=== PATIENT | female | born 1960 | race Caucasian/White ===

== ENCOUNTER 2019-10-13 17:16 | Emergency (ER) | payer OTHER ==
[2019-10-13] MEDS ORDERED: Nitrostat 0.4 MG (ED) SL ONE ×2 (17:23→17:34)
[2019-10-13] MEDS ORDERED: BABY ASPIRIN 81 MG CHEW PO ONE (17:23)
[2019-10-13 17:33] LABS: Absolute Neutrophil Ct (ANC) 6.78 (1.4-6.9); BASOPHIL % 0.3 % (0.0-0.4); Basophil (Absolute #) 0.03 (0-0.4); Eosinophil % 0.8 % (0.00-5.0); Eosinophil (Absolute #) 0.09 (0-0.5); Hematocrit 44.4 % (35-47); Hemoglobin 14.8 gm/dl (12.0-16.0); Lymphocyte (Absolute #) 2.99 (1.0-4.6); Lymphocytes % 27.8 % (24.0-44.0); Mean Cell Volume 89.2 fl (78-100); Mean Corpuscular Hemoglobin 29.7 pg (26-32); Mean Corpuscular Hgb Concent. 33.3 g/dl (32-36); Mean Platelet Volume 11.6 fl (7.5-11.0); Monocyte (Absolute #) 0.88 (0.0-1.3); Monocytes % 8.2 % (0.0-12.0); Neutrophil % 62.9 % (36.0-66.0); Platelet Count 268 K/mm3 (150-450); Red Blood Count 4.98 M/mm3 (4.1-5.4); Red Cell Distribution Width 15.1 % (11.5-14.0); White Blood Count 10.8 K/mm3 (4.0-10.5)
[2019-10-13] MEDS ORDERED: BABY ASPIRIN 81 MG CHEW ONE (17:33)
--- NOTE | 2019-10-13 17:44 | ERPHSYRPT ---
- History of Present Illness Source: patient Exam Limitations: no limitations Patient Subjective Stated Complaint: pt to ER with complaints of chest pain since last night 01/21. pt complains of SOB and nausea, lightheaded. pt states she has been having it intermittent over 1 year. Triage Nursing Assessment: pt A&Ox4. pt ambulatory. pt skin pwd. Physician History: Patient is here with chest pain. Left-sided. Radiating into her back and left upper neck. Patient states it has been going on intermittently for over 1 year. However, last night was the worst episode of chest pain. She describes it as a 10 out of 10 radiating into her back. She has no other falls or trauma. States that she has been unable to follow-up with anyone given her social situation. She states that her recently as did her mother. Therefore, she has not seen a diversity manager or followed up. Location: chest pain Quality: sharp Radiation: into back Severity: 10/10 (last night, now is only slightly uncomfortable. Duration: 1 year Timing: intermittent Modifying factors/associated signs and symptoms: none tried Allergies/Adverse Reactions: hydromorphone [From Dilaudid] Adverse Reaction (Mild, Verified 10/13/19 17:26) Vomiting Home Medications: Alprazolam 0.25 mg [xanAX 0.25 MG] 0.25 mg PO DAILY PRN 10/13/19 [History] Erythromycin Base [Erythromycin] 5 g DAILY 10/13/19 [History] Losartan/Hydrochlorothiazide [Losartan-Hctz 100-12.5 mg Tab] 1 tab PO DAILY 10/13/19 [History] PANTOPRAZOLE 40 mg Tablet [Protonix 40MG Tablet] 40 mg PO DAILY 10/13/19 [History] Hx Tetanus, Diphtheria Vaccination/Date Given: No Hx Influenza Vaccination/Date Given: No Hx Pneumococcal Vaccination/Date Given: No Immunizations Up to Date: Yes Travel Risk - International Travel Have you traveled outside of the country in past 3 weeks: No - Coronavirus Screening Are you exhibiting any of the following symptoms?: Yes Symptoms: Shortness of Breath Close contact with a COVID-19 positive Pt in past 14-21 Days: No - Review of Systems Constitutional: No Fever, No Chills Eyes: No Symptoms Ears, Nose, & Throat: No Symptoms Respiratory: Dyspnea, No Cough Cardiac: Chest Pain, No Edema, No Syncope Abdominal/Gastrointestinal: No Abdominal Pain, No Nausea, No Vomiting, No Diarr hea Genitourinary Symptoms: No Dysuria Musculoskeletal: No Back Pain, No Neck Pain Skin: No Rash Neurological: No Dizziness, No Focal Weakness, No Sensory Changes Psychological: No Symptoms Endocrine: No Symptoms All Other Systems: Reviewed and Negative - Past Medical History Pertinent Past Medical History: Yes Cardiac History: Hypertension Endocrine Medical History: Hypoglycemia GI Medical History: Ulcer Psycho-Social History: Anxiety - Past Surgical History Past Surgical History: Yes Gastrointestinal: Appendectomy Female Surgical History: Hysterectomy - Social History Smoking Status: Never smoker Exposure to second hand smoke: No Drug Use: none Patient Lives Alone: Yes - Nursing Vital Signs Nursing Vital Signs: Initial Vital Signs Pulse Rate 108 H 10/13/19 17:17 Respiratory Rate 18 10/13/19 17:17 O2 Sat by Pulse Oximetry 97 10/13/19 17:17 Pain Scale Pain Intensity 4 - Physical Exam General Appearance: no apparent distress, alert Eye Exam: PERRL/EOMI, eyes nml inspection Ears, Nose, Throat Exam: normal ENT inspection, TMs normal, pharynx normal, mois t mucous membranes Neck Exam: normal inspection, non-tender, supple, full range of motion Respiratory Exam: normal breath sounds, lungs clear, No respiratory distress Cardiovascular Exam: regular rate/rhythm, normal heart sounds, normal peripheral pulses, other (tachycardia ) Gastrointestinal/Abdomen Exam: soft, normal bowel sounds, No tenderness, No mass Back Exam: normal inspection, normal range of motion, No CVA tenderness, No vertebral tenderness Extremity Exam: normal inspection, normal range of motion, pelvis stable Neurologic Exam: alert, oriented x 3, cooperative, normal mood/affect, nml cerebellar function, nml station & gait, sensation nml, No motor deficits Skin Exam: normal color, warm, dry, No rash Lymphatic Exam: No adenopathy SpO2: 95 - Course Nursing assessment & vital signs reviewed: Yes EKG Interpreted by Me: RATE, Sinus Tach (Sinus tachycardia no obvious ST elevation, rate of 103) Ordered Tests: Active Orders 24 hr Category Date Time Status EKG-ER Only STAT Care 10/13/19 17:23 Active IV Insertion STAT Care 10/13/19 17:23 Active CHEST 2 VIEWS (PA AND LAT) Stat Exams 10/13/19 17:24 Taken CHEST WITH CONTRAST [CT] Stat Exams 10/13/19 17:51 Taken CBC W DIFF Stat Lab 10/13/19 17:29 Completed CMP Stat Lab 10/13/19 17:29 Completed D-DIMER QUANTITATIVE Stat Lab 10/13/19 17:29 Completed LIPASE Stat Lab 10/13/19 17:29 Completed Lactic Acid Stat Lab 10/13/19 17:32 Completed NT PRO BNP Stat Lab 10/13/19 17:29 Completed TROPONIN Q3H Lab 10/13/19 17:29 Completed TROPONIN Q3H Lab 10/13/19 20:30 Ordered TROPONIN Q3H Lab 10/13/19 23:30 Ordered TROPONIN Q3H Lab 10/14/19 02:30 Ordered TROPONIN Q3H Lab 10/14/19 05:30 Ordered Medication Summary Generic Name Dose Route Start Last Admin Trade Name Freq PRN Reason Stop Dose Admin Heparin Sodium/Dextrose 25,000 units in 250 mls @ 10 mls/hr 10/13/19 18:30 10/13/19 18:41 Heparin 25,000 Units/D5w 250ml Premix IV 11/12/19 18:29 10 mls/hr .Q24H MICHAEL 10 mls/hr Administration Discontinued Medications Generic Name Dose Route Start Last Admin Trade Name Freq PRN Reason Stop Dose Admin Aspirin 324 mg 10/13/19 17:23 10/13/19 17:33 Baby Aspirin 81 Mg Chew PO 10/13/19 17:24 324 mg STAT ONE Administration Aspirin Confirm 10/13/19 17:33 Baby Aspirin 81 Mg Chew Administered 10/13/19 17:34 Dose 324 mg .ROUTE .STK-MED ONE Heparin Sodium (Beef Lung) 5,000 unit 10/13/19 18:11 10/13/19 18:42 Heparin 5000 Units/0.5 Ml (High Risk Med) IV 10/13/19 18:12 5,000 unit STAT ONE Administration Heparin Sodium (Beef Lung) Confirm 10/13/19 18:40 Heparin 5000 Units/0.5 Ml (High Risk Med) Administered 10/13/19 18:41 Dose 5,000 unit .ROUTE .STK-MED ONE Nitroglycerin 0.4 mg 10/13/19 17:23 10/13/19 17:32 Nitrostat 0.4 Mg (Ed) SL 10/13/19 17:24 0.4 mg STAT ONE Administration Nitroglycerin Confirm 10/13/19 17:34 Nitrostat 0.4 Mg (Ed) Administered 10/13/19 17:35 Dose 0.4 mg SL .STK-MED ONE Lab/Rad Data: Laboratory Result Diagrams 10/13/19 17:29 10/13/19 17:29 Laboratory Results 10/13/19 10/13/19 10/13/19 Range/Units 17:32 17:29 17:29 WBC (4.0-10.5) K/mm3 RBC (4.1-5.4) M/mm3 Hgb (12.0-16.0) gm/dl Hct (35-47) % MCV (78-100) fl MCH (26-32) pg MCHC (32-36) g/dl RDW (11.5-14.0) % Plt Count (150-450) K/mm3 MPV (7.5-11.0) fl Gran % (36.0-66.0) % Eos # (Auto) (0-0.5) Absolute Lymphs (auto) (1.0-4.6) Absolute Monos (auto) (0.0-1.3) Lymphocytes % (24.0-44.0) % Monocytes % (0.0-12.0) % Eosinophils % (0.00-5.0) % Basophils % (0.0-0.4) % Absolute Granulocytes (1.4-6.9) Basophils # (0-0.4) D-Dimer 904 H* (215-500) ng/mL Sodium (137-145) mmol/L Potassium (3.5-5.1) mmol/L Chloride (98-107) mmol/L Carbon Dioxide (22-30) mmol/L Anion Gap (5-15) MEQ/L BUN (7-17) mg/dL Creatinine (0.52-1.04) mg/dL Estimated GFR ML/MIN Glucose (74-106) mg/dL Lactic Acid 1.7 (0.4-2.0) Calcium (8.4-10.2) mg/dL Total Bilirubin (0.2-1.3) mg/dL AST (14-36) U/L ALT (0-35) U/L Alkaline Phosphatase (38-126) U/L Troponin I 0.044 H* (0.000-0.034) ng/mL NT-Pro-B Natriuret Pep (0-900) pg/mL Serum Total Protein (6.3-8.2) g/dL Albumin (3.5-5.0) g/dL Lipase (23-300) U/L 10/13/19 10/13/19 Range/Units 17:29 17:29 WBC 10.8 H (4.0-10.5) K/mm3 RBC 4.98 (4.1-5.4) M/mm3 Hgb 14.8 (12.0-16.0) gm/dl Hct 44.4 (35-47) % MCV 89.2 (78-100) fl MCH 29.7 (26-32) pg MCHC 33.3 (32-36) g/dl RDW 15.1 H (11.5-14.0) % Plt Count 268 (150-450) K/mm3 MPV 11.6 H (7.5-11.0) fl Gran % 62.9 (36.0-66.0) % Eos # (Auto) 0.09 (0-0.5) Absolute Lymphs (auto) 2.99 (1.0-4.6) Absolute Monos (auto) 0.88 (0.0-1.3) Lymphocytes % 27.8 (24.0-44.0) % Monocytes % 8.2 (0.0-12.0) % Eosinophils % 0.8 (0.00-5.0) % Basophils % 0.3 (0.0-0.4) % Absolute Granulocytes 6.78 (1.4-6.9) Basophils # 0.03 (0-0.4) D-Dimer (215-500) ng/mL Sodium 143 (137-145) mmol/L Potassium 3.8 (3.5-5.1) mmol/L Chloride 110 H (98-107) mmol/L Carbon Dioxide 24 (22-30) mmol/L Anion Gap 12.8 (5-15) MEQ/L BUN 17 (7-17) mg/dL Creatinine 1.08 H (0.52-1.04) mg/dL Estimated GFR 54.8 ML/MIN Glucose 127 H (74-106) mg/dL Lactic Acid (0.4-2.0) Calcium 9.7 (8.4-10.2) mg/dL Total Bilirubin 1.00 (0.2-1.3) mg/dL AST 29 (14-36) U/L ALT 27 (0-35) U/L Alkaline Phosphatase 104 (38-126) U/L Troponin I (0.000-0.034) ng/mL NT-Pro-B Natriuret Pep 891 (0-900) pg/mL Serum Total Protein 8.3 H (6.3-8.2) g/dL Albumin 4.5 (3.5-5.0) g/dL Lipase 53 (23-300) U/L - Progress Progress: improved Progress Note: 10/13/19 17:43 Differential diagnosis includes hypertensive urgency, STEMI, unstable angina, non-ST segment myocardial infarction, other infection. - We'll obtain basic labs, fluids, EKG, troponin, chest x-ray - EKG shows no ST changes - my read. See full read below. - O2 saturations consistently greater than 95%. - CXR shows no pneumonia, pneumothorax - my read 10/13/19 18:18 Patient did have an elevated d-dimer. Therefore we will obtain a CTA of the chest. Elevated troponin at 0.044. Patient most likely having a non-STEMI. Therefore, we will start heparin at this point time and transfer patient to [facility]. 10/13/19 18:[address] Karri Alcaraz he accepted the patient for transfer to [facility]. 10/13/19 18:32 ED critical care statement As staff physician, I have provided critical care. Time: 45 Criteria for critical illness: Elevated troponin, non-ST segment myocardial infarction Treatment and management provided include: Coordination of management with ETC care team, consultants, and inpatient care team. [id number] assessment of condition and response to therapy. Review and interpretation of emergent diagnostic testing. Medical chart review and completion. Direction and immediate supervision of the following therapy: Critical care was time spent personally by me on the following activities: blood draw for specimens, development of treatment plan with patient or surrogate, discussions with consultants, discussions with primary provider, interpretation of cardiac output measurements, evaluation of patient's response to treatment, examination of patient, obtaining history from patient or surrogate, ordering and performing treatments and interventions, ordering and review of laboratory studies, ordering and review of radiographic studies, pulse oximetry, re-evaluation of patient's condition and review of old charts. This time was independent of all procedures performed. Demarcus Barber Counseled pt/family regarding: lab results, diagnosis, need for follow-up, rad results - Departure Departure Disposition: Transfer Clinical Impression: NSTEMI (non-ST elevated myocardial infarction), Elevated troponin, Chest pain Condition: Stable Critical Care Time: Yes Critical Care Time(excluding separately billable procedures): Critical 30-74 mins Referrals: ARSALAN RICHARD [NON-STAFF PHY W/O PRIVILEGES] - Instructions: Angina (DC)
[2019-10-13 17:53] LABS: ALBUMIN 4.5 g/dL (3.5-5.0); ANION GAP 12.8 MEQ/L (5-15); Calcium 9.7 mg/dL (8.4-10.2); Creatinine 1 1.08 mg/dL (0.52-1.04); Potassium 3.8 mmol/L (3.5-5.1); Total Protein 8.3 g/dL (6.3-8.2)
[2019-10-13] MEDS ORDERED: Heparin 5000 UNITS/0.5 ML (HIGH RISK MED) IV ONE (18:11)
[2019-10-13] MEDS ORDERED: Heparin 25,000 units/D5W 250ML PREMIX 25,000 UNITS/250 ML BAG IV SCH (18:30)
[2019-10-13] MEDS ORDERED: Heparin 5000 UNITS/0.5 ML (HIGH RISK MED) ONE (18:40)
[2019-10-13] MEDS ORDERED: Heparin 25,000 units/D5W 250ML PREMIX 25,000 UNITS/250 ML BAG IV ONE (18:41)
[2019-10-13 19:11] VITALS: PULSE 83; O2SAT 97
[2019-10-13 20:07] VITALS: BP 146/111
--- NOTE | 2019-10-14 08:41 | XRAY ---
Indication: Left chest pain. Short of breath. Comparison: None PA/lateral chest clear. Heart and mediastinal structures within normal limits. Bony thorax intact with mild osteopenia, degenerative changes, and minimal double curvature scoliosis. Impression: Nonacute chest with chronic features.
--- NOTE | 2019-10-14 08:43 | XRAY ---
Indication: Left chest and neck pain. Short of breath. Elevated d-dimer. Multiple contiguous axial images obtained through the chest using 80 cc Isovue 370 contrast and PE protocol. Comparison: None There is satisfactory opacification of the pulmonary arteries including the lobar and segmental branches. Tiny nonoccluding pulmonary emboli seen in the apical and posterior segmental branch. Heart is not enlarged. Aorta is normal in course and caliber. No pathologic mediastinal/hilar lymphadenopathy. Small hiatal hernia. Lungs demonstrates minimal bilateral dependent atelectasis and minimal lingula fibrosis/scarring. No suspicious pulmonary mass, infiltrate, consolidation, or effusion. Bony thorax intact with mild degenerative changes throughout the spine. Limited upper abdomen demonstrates fatty liver. Impression: 1. Tiny nonoccluding right upper lobe pulmonary emboli. 2. Incidental small hiatal hernia and fatty liver.
== END 2019-10-13 20:35 | disposition short-term general hospital (02) ==
LOC: ED 17:16
DX: I21.3 ST elevation (STEMI) myocardial infarction of unspecified site (principal); R74.8 Abnormal levels of other serum enzymes; R07.9 Chest pain, unspecified; I10 Essential (primary) hypertension; F41.9 Anxiety disorder, unspecified; I20.0 Unstable angina; R79.89 Other specified abnormal findings of blood chemistry; Z79.899 Other long term (current) drug therapy
CPT/HCPCS: 36000; 36415; 71046; 71260; 80053; 83605; 83690; 83880; 84484; 85025; 85379; 93005; 96365; 96374; 99285; 99291; J1644; A9270-GY

== ENCOUNTER 2019-10-29 16:50 | Observation (INO) | payer OTHER ==
[2019-10-29] MEDS ORDERED: GI COCKTAIL 45 ML (Maalox/Lidocaine) PO ONE (17:17)
[2019-10-29] MEDS ORDERED: XYLOCAINE HCl Viscous ONE (17:20)
[2019-10-29] MEDS ORDERED: MAALOX ES 30 ML UNIT DOSE ONE (17:20)
[2019-10-29 18:04] LABS: Absolute Neutrophil Ct (ANC) 5.48 (1.4-6.9); BASOPHIL % 0.3 % (0.0-0.4); Basophil (Absolute #) 0.03 (0-0.4); Eosinophil % 1.6 % (0.00-5.0); Eosinophil (Absolute #) 0.15 (0-0.5); Hematocrit 41.8 % (35-47); Hemoglobin 13.6 gm/dl (12.0-16.0); Lymphocyte (Absolute #) 3.07 (1.0-4.6); Lymphocytes % 32.2 % (24.0-44.0); Mean Cell Volume 90.5 fl (78-100); Mean Corpuscular Hemoglobin 29.4 pg (26-32); Mean Corpuscular Hgb Concent. 32.5 g/dl (32-36); Mean Platelet Volume 11.8 fl (7.5-11.0); Monocytes % 8.4 % (0.0-12.0); Neutrophil % 57.5 % (36.0-66.0); Platelet Count 256 K/mm3 (150-450); Red Blood Count 4.62 M/mm3 (4.1-5.4); Red Cell Distribution Width 14.8 % (11.5-14.0); White Blood Count 9.5 K/mm3 (4.0-10.5)
--- NOTE | 2019-10-29 18:08 | ERPHSYRPT ---
- History of Present Illness Patient Subjective Stated Complaint: Chest pain Triage Nursing Assessment: Patient ambulated back to ED and transferred self to bed. Patient A+O X3. Patient's skin pink, warm and dry. Patient complains of abdominal pain constant aching pain 4/10. Patient denies diarrhea, N/V, Patient's states she has felt heart flutter two different days this past week. Patient had recent HI and heart cath two weeks ago. Patient's lungs clear a/p lorraine. No edema noted. Heart tones audible. Timing/Duration: day(s) (two) Activities at Onset: none Quality: dullness, fullness Abdominal Pain Onset Location: epigastric Pain Radiation: no radiation Severity of Pain-Max: moderate Severity of Pain-Current: moderate Modifying Factors: Improves With: nothing Associated Symptoms: chest pain, fatigue, No diaphoresis, No diarrhea, No fever/chills, No loss of appetite Previous symptoms: no prior history Hx Tetanus, Diphtheria Vaccination/Date Given: No Hx Influenza Vaccination/Date Given: No Hx Pneumococcal Vaccination/Date Given: No Immunizations Up to Date: Yes <ETHEL DUARTE - Last Filed: 10/29/19 18:59> <YUN BERGER - Last Filed: 10/29/19 19:59> - History of Present Illness Time Seen by Provider: 10/29/19 16:54 Physician History: This Is a 59-year-old patient presenting to the ED with abdominal pain x 2 days -She states that 2 weeks ago she had presented here with chest pain and had to be transferred to [facility]. States that she had a PE and was placed on Eliquis and many other medications. She does not remember the names. Also states that she had a heart cath done last which was normal. States that since she has had a PE she has had a dull pain on the left side of her chest which is not any worse. States that she did feel something like a flutter earlier today. She has been fatigued since discharge from [facility] -Patient states that she has had abdominal pain mostly in the epigastric region- rates the pain a 10/10, intermittent dull pain, with no aggravating or relieving factors, nonradiating. -She denies any nausea/vomiting/urinary symptoms. Is having regular bowel movements. Patient thinks she feels bloated -She denies any fever/shortness of breath/exposure to COVID (ETHEL DUARTE) Allergies/Adverse Reactions: hydromorphone [From Dilaudid] Adverse Reaction (Mild, Verified 10/29/19 16:54) Vomiting Home Medications: Alprazolam 0.25 mg [xanAX 0.25 MG] 0.25 mg PO DAILY PRN 10/13/19 [History] PANTOPRAZOLE 40 mg Tablet [Protonix 40MG Tablet] 40 mg PO DAILY 10/13/19 [History] Apixaban [Eliquis] 1 tab PO BID 10/29/19 [History] Atorvastatin Calcium 1 tab PO HS 10/29/19 [History] Clopidogrel Bisulfate 75 mg [PLAVIX 75 MG Tablet] 1 tab PO DAILY 10/29/19 [History] Losartan Potassium [Cozaar] 1 tab PO DAILY 10/29/19 [History] Metoprolol Tartrate 25 mg [Lopressor 25MG Tab] 1 tab PO DAILY 10/29/19 [History] hydroCHLOROthiazide [Hydrochlorothiazide] 12.5 mg PO DAILY 10/29/19 [History] Travel Risk - International Travel Have you traveled outside of the country in past 3 weeks: No - Coronavirus Screening Are you exhibiting any of the following symptoms?: No Close contact with a COVID-19 positive Pt in past 14-21 Days: No <ETHEL DUARTE - Last Filed: 10/29/19 18:59> - Review of Systems Constitutional: No Symptoms, Fatigue, No Fever, No Chills Eyes: No Symptoms Ears, Nose, & Throat: No Symptoms Respiratory: No Symptoms Cardiac: Chest Pain (ongoing since discharge from [facility]) Abdominal/Gastrointestinal: Abdominal Pain Genitourinary Symptoms: No Symptoms Musculoskeletal: No Symptoms Skin: No Symptoms Neurological: No Symptoms Psychological: No Symptoms, Hallucinations Hematologic/Lymphatic: No Symptoms Immunological/Allergic: No Symptoms All Other Systems: Reviewed and Negative <ETHEL DUARTE - Last Filed: 10/29/19 18:59> - Past Medical History Pertinent Past Medical History: Yes Cardiac History: Hypertension, Myocardial Infarction (HI) Endocrine Medical History: Hypoglycemia GI Medical History: Ulcer Psycho-Social History: Anxiety Other Medical History: HI and heart cath two weeks ago - Past Surgical History Past Surgical History: Yes Cardiac: Cardiac Catheterization Gastrointestinal: Appendectomy Female Surgical History: Hysterectomy - Social History Smoking Status: Never smoker Exposure to second hand smoke: No Drug Use: none Patient Lives Alone: Yes <ETHEL DUARTE - Last Filed: 10/29/19 18:59> - Physical Exam General Appearance: no apparent distress Eye Exam: PERRL/EOMI, eyes nml inspection Ears, Nose, Throat Exam: normal ENT inspection, TMs normal, pharynx normal Neck Exam: normal inspection, non-tender, supple, full range of motion Respiratory Exam: normal breath sounds, lungs clear, No chest tenderness, No respiratory distress Cardiovascular Exam: regular rate/rhythm, normal heart sounds, normal peripheral pulses Gastrointestinal/Abdomen Exam: soft, normal bowel sounds, No tenderness, No distention, No mass, No guarding, No pulsatile mass, No organomegaly Pelvic Exam: not done Rectal Exam: deferred Back Exam: normal inspection Extremity Exam: normal inspection Neurologic Exam: alert, oriented x 3, cooperative, 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 Skin Exam: normal color, warm Lymphatic Exam: No adenopathy SpO2 Interpretation: normal SpO2: 95 O2 Delivery: Room Air <ETHEL DUARTE - Last Filed: 10/29/19 18:59> - Nursing Vital Signs Nursing Vital Signs: Initial Vital Signs Temperature 98.0 F 10/29/19 16:55 Pulse Rate 96 H 10/29/19 16:55 Respiratory Rate 16 10/29/19 16:55 Blood Pressure 185/112 10/29/19 16:55 O2 Sat by Pulse Oximetry 95 10/29/19 16:55 Pain Scale Pain Intensity 6 - Course EKG Interpreted by Me: RATE, Sinus Rhythm, NORMAL AXIS, NORMAL INTERVALS, NORMAL QRS Rhythm Strip: Normal Sinus Rhythm <ETHEL DUARTE - Last Filed: 10/29/19 18:59> Ordered Tests: Active Orders 24 hr Category Date Time Status Code Status Order ROUTINE Care 10/29/19 17:17 Active EKG-ER Only STAT Care 10/29/19 17:13 Active IV Insertion STAT Care 10/29/19 17:13 Active ABDOMEN AND PELVIS W CONTRAST [CT] Stat Exams 10/29/19 17:17 Taken CHEST 1 VIEW (PORTABLE) Stat Exams 10/29/19 17:13 Taken CBC W DIFF Stat Lab 10/29/19 17:38 Completed CK-Creatinine Phosphokinase Stat Lab 10/29/19 17:38 Completed CMP Stat Lab 10/29/19 17:38 Completed CULTURE,URINE Stat Lab 10/29/19 17:41 Received LIPASE Stat Lab 10/29/19 17:38 Completed NT PRO BNP Stat Lab 10/29/19 17:38 Completed TROPONIN Q3H Lab 10/29/19 17:38 Completed TROPONIN Q3H Lab 10/29/19 20:15 Ordered TROPONIN Q3H Lab 10/29/19 23:15 Ordered TROPONIN Q3H Lab 10/30/19 02:15 Ordered TROPONIN Q3H Lab 10/30/19 05:15 Ordered UA W/RFX UR CULTURE Stat Lab 10/29/19 17:41 Completed Transfer Order Routine Transfer 10/29/19 Ordered Medication Summary Generic Name Dose Route Start Last Admin Trade Name Freq PRN Reason Stop Dose Admin Lorazepam 1 mg 10/29/19 19:56 Ativan 2 Mg/1 Ml Vial IV 10/29/19 19:57 STAT ONE Discontinued Medications Generic Name Dose Route Start Last Admin Trade Name Freq PRN Reason Stop Dose Admin Al Hydrox/Mg Hydrox/Simethicone Confirm 10/29/19 17:20 Maalox Es 30 Ml Unit Dose Administered 10/29/19 17:21 Dose 30 ml .ROUTE .STK-MED ONE Diazepam 5 mg 10/29/19 18:12 10/29/19 18:28 Valium 10 Mg/2 Ml Syringe IV 10/29/19 18:13 5 mg STAT ONE Administration Diazepam Confirm 10/29/19 18:27 Valium 10 Mg/2 Ml Syringe Administered 10/29/19 18:28 Dose 10 mg .ROUTE .STK-MED ONE Famotidine 20 mg 10/29/19 19:45 10/29/19 19:52 Pepcid 20 Mg Vial IV 10/29/19 19:46 20 mg STAT ONE Administration Famotidine Confirm 10/29/19 19:50 Pepcid 20 Mg Vial Administered 10/29/19 19:51 Dose 20 mg IV .STK-MED ONE Lidocaine HCl Confirm 10/29/19 17:20 Xylocaine Hcl Viscous * Administered 10/29/19 17:21 Dose 15 ml .ROUTE .STK-MED ONE Magnesium Hydroxide 45 ml 10/29/19 17:17 10/29/19 17:23 Gi Cocktail 45 Ml (Maalox/Lidocaine) PO 10/29/19 17:18 45 ml STAT ONE Administration Pantoprazole Sodium 40 mg 10/29/19 19:45 10/29/19 19:52 Protonix 40 Mg Iv IV 10/29/19 19:46 40 mg STAT ONE Administration Pantoprazole Sodium Confirm 10/29/19 19:50 Protonix 40 Mg Iv Administered 10/29/19 19:51 Dose 40 mg IV .[facility] [employer]-TopTenREVIEWS ONE Lab/Rad Data: Laboratory Result Diagrams 10/29/19 17:38 10/29/19 17:38 Laboratory Results 10/29/19 10/29/19 10/29/19 Range/Units 17:41 17:38 17:38 WBC (4.0-10.5) K/mm3 RBC (4.1-5.4) M/mm3 Hgb (12.0-16.0) gm/dl Hct (35-47) % MCV (78-100) fl MCH (26-32) pg MCHC (32-36) g/dl RDW (11.5-14.0) % Plt Count (150-450) K/mm3 MPV (7.5-11.0) fl Gran % (36.0-66.0) % Eos # (Auto) (0-0.5) Absolute Lymphs (auto) (1.0-4.6) Absolute Monos (auto) (0.0-1.3) Lymphocytes % (24.0-44.0) % Monocytes % (0.0-12.0) % Eosinophils % (0.00-5.0) % Basophils % (0.0-0.4) % Absolute Granulocytes (1.4-6.9) Basophils # (0-0.4) Sodium (137-145) mmol/L Potassium (3.5-5.1) mmol/L Chloride (98-107) mmol/L Carbon Dioxide (22-30) mmol/L Anion Gap (5-15) MEQ/L BUN (7-17) mg/dL Creatinine (0.52-1.04) mg/dL Estimated GFR ML/MIN Glucose (74-106) mg/dL Calcium (8.4-10.2) mg/dL Total Bilirubin (0.2-1.3) mg/dL AST (14-36) U/L ALT (0-35) U/L Alkaline Phosphatase (38-126) U/L Creatine Kinase (30-135) U/L Troponin I < 0.012 (0.000-0.034) ng/mL NT-Pro-B Natriuret Pep (0-900) pg/mL Serum Total Protein (6.3-8.2) g/dL Albumin (3.5-5.0) g/dL Lipase 106 (23-300) U/L Urine Color STRAW (YELLOW) Urine Appearance CLEAR (CLEAR) Urine pH 6.0 (5-6) Ur Specific [place] 1.009 (1.005-1.025) Urine Protein NEGATIVE (Negative) Urine Ketones NEGATIVE (NEGATIVE) Urine Blood NEGATIVE (0-5) Anshul/ul Urine Nitrite NEGATIVE (NEGATIVE) Urine Bilirubin NEGATIVE (NEGATIVE) Urine Urobilinogen NEGATIVE (0-1) mg/dL Ur Leukocyte Esterase MODERATE (NEGATIVE) Urine WBC (Auto) 16-25 (0-5) /HPF Urine RBC (Auto) NONE (0-2) /HPF U Epithel Cells (Auto) NONE (FEW) /HPF Urine Bacteria (Auto) FEW (NEGATIVE) /HPF Urine Culture Reflexed YES (NO) Urine Glucose NEGATIVE (NEGATIVE) mg/dL 10/29/19 10/29/19 Range/Units 17:38 17:38 WBC 9.5 (4.0-10.5) K/mm3 RBC 4.62 (4.1-5.4) M/mm3 Hgb 13.6 (12.0-16.0) gm/dl Hct 41.8 (35-47) % MCV 90.5 (78-100) fl MCH 29.4 (26-32) pg MCHC 32.5 (32-36) g/dl RDW 14.8 H (11.5-14.0) % Plt Count 256 (150-450) K/mm3 MPV 11.8 H (7.5-11.0) fl Gran % 57.5 (36.0-66.0) % Eos # (Auto) 0.15 (0-0.5) Absolute Lymphs (auto) 3.07 (1.0-4.6) Absolute Monos (auto) 0.80 (0.0-1.3) Lymphocytes % 32.2 (24.0-44.0) % Monocytes % 8.4 (0.0-12.0) % Eosinophils % 1.6 (0.00-5.0) % Basophils % 0.3 (0.0-0.4) % Absolute Granulocytes 5.48 (1.4-6.9) Basophils # 0.03 (0-0.4) Sodium 142 (137-145) mmol/L Potassium 3.7 (3.5-5.1) mmol/L Chloride 107 (98-107) mmol/L Carbon Dioxide 27 (22-30) mmol/L Anion Gap 12.2 (5-15) MEQ/L BUN 17 (7-17) mg/dL Creatinine 0.86 (0.52-1.04) mg/dL Estimated GFR > 60.0 ML/MIN Glucose 90 (74-106) mg/dL Calcium 9.5 (8.4-10.2) mg/dL Total Bilirubin 1.20 (0.2-1.3) mg/dL AST 27 (14-36) U/L ALT 24 (0-35) U/L Alkaline Phosphatase 132 H (38-126) U/L Creatine Kinase 120 (30-135) U/L Troponin I (0.000-0.034) ng/mL NT-Pro-B Natriuret Pep 336 (0-900) pg/mL Serum Total Protein 8.3 H (6.3-8.2) g/dL Albumin 4.5 (3.5-5.0) g/dL Lipase (23-300) U/L Urine Color (YELLOW) Urine Appearance (CLEAR) Urine pH (5-6) Ur Specific [place] (1.005-1.025) Urine Protein (Negative) Urine Ketones (NEGATIVE) Urine Blood (0-5) Anshul/ul Urine Nitrite (NEGATIVE) Urine Bilirubin (NEGATIVE) Urine Urobilinogen (0-1) mg/dL Ur Leukocyte Esterase (NEGATIVE) Urine WBC (Auto) (0-5) /HPF Urine RBC (Auto) (0-2) /HPF U Epithel Cells (Auto) (FEW) /HPF Urine Bacteria (Auto) (NEGATIVE) /HPF Urine Culture Reflexed (NO) Urine Glucose (NEGATIVE) mg/dL <ETHEL DUARTE - Last Filed: 10/29/19 18:59> - Progress Progress: improved, pain not gone completely Discussed with Dr.: Salome Counseled pt/family regarding: lab results, diagnosis, need for follow-up, rad results <YUN BERGER - Last Filed: 10/29/19 19:59> - Progress Progress Note: 10/29/19 18:09 This is a 59-year-old patient presenting to the ED for evaluation of abdominal pain for the past 2 days She was seen and evaluated in ED room 5 Vital signs-patient was hypertensive on arrival with a blood pressure of 185/98 on arrival. Patient stated that she has not taken her blood pressure medications today and that she is very anxious. - Labs ordered: CBC, CMP, CPK, BNP, TROPONINS,UA,LIPASE Results: all labs WNL including troponin x 1 Imaging: CT abdomen pelvis with contrast,cxr- shows no acute cardiopulmonary disease Medications/fluids : GI Cocktail, valium 10/29/19 18:42 10/29/19 18:47 Repeat BP after valium is 148/76 10/29/19 18:59 At this time care has been handed over to (ETHEL DUARTE) <ETHEL DUARTE - Last Filed: 10/29/19 18:59> - Departure Departure Disposition: Observation Critical Care Time: Yes Critical Care Time(excluding separately billable procedures): Critical 30-74 mins <YUN BERGER - Last Filed: 10/29/19 19:59> - Departure Clinical Impression: Abdominal pain in female patient, Gastritis/duodenitis Condition: Fair Referrals: DEDE MCDONOUGH NP [Primary Care Provider] - LORENZA MCLAIN MD [ACTIVE STAFF] -
[2019-10-29] MEDS ORDERED: VALIUM 10 MG/2 ML SYRINGE IV ONE (18:12)
[2019-10-29 18:20] LABS: Appearance CLEAR (CLEAR); Bacteria FEW /HPF (NEGATIVE); Bilirubin NEGATIVE (NEGATIVE); Blood NEGATIVE Ery/ul (0-5); Glucose NEGATIVE (NEGATIVE); Ketones NEGATIVE (NEGATIVE); Leukocyte Esterase MODERATE (NEGATIVE); Nitrite NEGATIVE (NEGATIVE); Protein,Urine Dip NEGATIVE (Negative); Specific Gravity 1.009 (1.005-1.025); Urobilinogen NEGATIVE mg/dL (0-1)
[2019-10-29 18:21] LABS: ALBUMIN 4.5 g/dL (3.5-5.0); ALKALINE PHOSPHATASE 132 U/L (38-126); ANION GAP 12.2 MEQ/L (5-15); BLOOD UREA NITROGEN 17 mg/dL (7-17); CHLORIDE 107 mmol/L (98-107); CK-Creatinine Phosphokinase 120 U/L (30-135); Calcium 9.5 mg/dL (8.4-10.2); Carbon Dioxide 27 mmol/L (22-30); Creatinine 1 0.86 mg/dL (0.52-1.04); Glucose 90 mg/dL (74-106); NT PRO BNP 336 pg/mL (0-900); Potassium 3.7 mmol/L (3.5-5.1); SGOT/AST 27 U/L (14-36); SGPT/ALT 24 U/L (0-35); SODIUM 142 mmol/L (137-145); Total Protein 8.3 g/dL (6.3-8.2)
[2019-10-29] MEDS ORDERED: VALIUM 10 MG/2 ML SYRINGE ONE (18:27)
[2019-10-29] MEDS ORDERED: PROTONIX 40 MG IV IV ONE ×2 (19:45→19:50)
[2019-10-29] MEDS ORDERED: Pepcid 20 MG VIAL IV ONE ×2 (19:45→19:50)
[2019-10-29] MEDS ORDERED: Ativan 2 MG/1 ML VIAL IV ONE (19:56)
[2019-10-29] MEDS ORDERED: Ativan 2 MG/1 ML VIAL ONE (20:00)
[2019-10-29] MEDS: ZOCOR 20MG PO SCH (21:48)
[2019-10-29] MEDS: ELIQUIS 2.5 MG TABLET PO SCH (21:48)
[2019-10-29] MEDS: Pepcid 20 MG VIAL IV SCH (21:49)
[2019-10-29] MEDS: Cozaar 50 MG PO SCH (21:49)
[2019-10-30 06:22] LABS: Absolute Neutrophil Ct (ANC) 4.25 (1.4-6.9); BASOPHIL % 0.3 % (0.0-0.4); Basophil (Absolute #) 0.02 (0-0.4); Eosinophil % 3.2 % (0.00-5.0); Eosinophil (Absolute #) 0.22 (0-0.5); Hematocrit 39.7 % (35-47); Hemoglobin 12.7 gm/dl (12.0-16.0); Lymphocytes % 27.2 % (24.0-44.0); Mean Cell Volume 91.3 fl (78-100); Mean Corpuscular Hemoglobin 29.2 pg (26-32); Mean Platelet Volume 11.7 fl (7.5-11.0); Monocyte (Absolute #) 0.59 (0.0-1.3); Monocytes % 8.5 % (0.0-12.0); Neutrophil % 60.8 % (36.0-66.0); Platelet Count 208 K/mm3 (150-450); Red Blood Count 4.35 M/mm3 (4.1-5.4); Red Cell Distribution Width 14.9 % (11.5-14.0)
[2019-10-30 06:32] LABS: ALBUMIN 3.5 g/dL (3.5-5.0); ALKALINE PHOSPHATASE 98 U/L (38-126); ANION GAP 10.5 MEQ/L (5-15); BLOOD UREA NITROGEN 13 mg/dL (7-17); CHLORIDE 107 mmol/L (98-107); Calcium 8.7 mg/dL (8.4-10.2); Carbon Dioxide 26 mmol/L (22-30); Creatinine 1 0.76 mg/dL (0.52-1.04); Glucose 99 mg/dL (74-106); Potassium 4.2 mmol/L (3.5-5.1); SGOT/AST 22 U/L (14-36); SGPT/ALT 18 U/L (0-35); SODIUM 140 mmol/L (137-145); Total Protein 6.4 g/dL (6.3-8.2)
--- NOTE | 2019-10-30 07:50 | XRAY ---
Indication: Abdomen pain and bloating. Status post heart catheterization October 21, 2019. Multiple contiguous axial images obtained through the abdomen and pelvis using 80 cc Isovue 370 contrast only. Comparison: None Lung bases are clear. Heart is not enlarged. Small hiatal hernia. Noncontrasted stomach and bowel loops appear nonobstructed. Mild diffuse scattered colonic diverticulosis and fecal debris throughout. Appendectomy and hysterectomy reported. No free fluid/air. Both kidneys enhance and excrete with bilateral parapelvic cysts. No suspicious solid renal mass, hydronephrosis, or hydroureter. Mild diffuse fatty liver. Remaining liver, gallbladder, pancreas, spleen, adrenal glands, kidneys, ureters, and bladder appear unremarkable. Mild scattered aortoiliac calcifications. No AAA or pathologic retroperitoneal lymphadenopathy. Osseous structures intact with mild degenerative changes throughout the spine, greatest at the lumbosacral junction. No ventral or inguinal hernias. Right inguinal soft tissue changes consistent with recent heart catheterization procedure. Impression: 1. Small hiatal hernia, mild diffuse fecal stasis, colonic diverticulosis, bilateral renal cysts, and fatty liver. 2. Remaining CT abdomen/pelvis with contrast exam is negative.
--- NOTE | 2019-10-30 07:52 | XRAY ---
Indication: Chest pain and abdomen pain/bloating. Comparison: October 13, 2019. Portable chest remains clear. Heart is not enlarged. Bony thorax intact again with mild osteopenia and degenerative changes. No new/acute findings.
[2019-10-30] MEDS: Cozaar 50 MG PO SCH (10:24)
[2019-10-30] MEDS: ELIQUIS 2.5 MG TABLET PO SCH ×2 (10:24→21:26)
[2019-10-30] MEDS: Pepcid 20 MG VIAL IV SCH ×2 (10:27→21:26)
[2019-10-30] MEDS: PROTONIX 40 MG IV IV SCH (10:28)
[2019-10-30] MEDS: xanAX 0.25 MG PO PRN (11:17)
[2019-10-30] MEDS ORDERED: MAALOX ES 30 ML UNIT DOSE PO PRN (12:34)
[2019-10-30] MEDS ORDERED: DULCOLAX 5 MG PO PRN (13:15)
[2019-10-30] MEDS: MORPHINE SULFATE 4 MG INJ IV PRN ×2 (13:42→18:06)
[2019-10-30] MEDS: Carafate 1 GM PO SCH ×2 (16:30→21:26)
[2019-10-30] MEDS: hydroDIURIL 25 MG PO SCH (16:30)
--- NOTE | 2019-10-30 16:53 | PCM.HP ---
History of Present Illness - Chief Complaint Chief Complaint: abdominal pain History of Present Illness: is a 59 year old female. Medications & Allergies Home Medications: Home Medication List Alprazolam 0.25 mg [xanAX 0.25 MG] 0.25 mg PO BID PRN 10/13/19 [History Confirmed 10/29/19] PANTOPRAZOLE 40 mg Tablet [Protonix 40MG Tablet] 40 mg PO DAILY 10/13/19 [History Confirmed 10/29/19] Apixaban [Eliquis] 5 mg PO BID 10/29/19 [History Confirmed 10/29/19] Atorvastatin Calcium 40 mg PO HS 10/29/19 [History Confirmed 10/29/19] Clopidogrel Bisulfate 75 mg [PLAVIX 75 MG Tablet] 75 mg PO DAILY 10/29/19 [History Confirmed 10/29/19] Losartan Potassium [Cozaar] 100 mg PO DAILY 10/29/19 [History Confirmed 10/29/19] Metoprolol Tartrate 25 mg [Lopressor 25MG Tab] 25 mg PO HS 10/29/19 [History Confirmed 10/30/19] hydroCHLOROthiazide [Hydrochlorothiazide] 12.5 mg PO DAILY 10/29/19 [History Confirmed 10/29/19] Allergies/Adverse Reactions: Allergies Allergy/AdvReac Type Severity Reaction Status Date / Time hydromorphone [From Dilaudid] AdvReac Mild Vomiting Verified 10/29/19 16:54 - Past Medical History Past Medical History: Yes Cardiac History: Hypertension, Myocardial Infarction (TX) Endocrine Medical History: Hypoglycemia GI Medical History: Ulcer Pyscho-Social History: Anxiety Comment: TX and heart cath two weeks ago - Female History Are you now?: No - Past Surgical History Past Surgical History: Yes Cardiac History: Cardiac Catheterization GI Surgical History: Appendectomy Female Surgical History: Hysterectomy - Social History Smoking Status: Never smoker Exposure to second hand smoke: No Alcohol: None Drug Use: none - Physical Exam Vital Signs: Vital Signs - 24 hr Temp Pulse Resp BP Pulse Ox 10/30/19 12:00 97.7 F 61 16 130/76 96 10/30/19 07:59 97.5 F 82 18 141/70 96 10/30/19 04:00 98.3 F 61 20 120/60 96 10/29/19 23:40 98.2 F 78 18 129/60 96 10/29/19 22:03 98.1 F 74 20 149/67 96 10/29/19 20:29 98.1 F 74 20 149/67 96 10/29/19 20:08 68 149/78 98 10/29/19 19:49 71 144/71 99 10/29/19 18:59 95 10/29/19 18:51 72 18 151/85 98 10/29/19 16:55 98.0 F 96 H 16 185/112 95 Results - Labs Lab/Micro Results: Lab Results-Last 24 Hours 10/29/19 10/29/19 10/29/19 Range/Units 17:38 17:38 17:38 WBC 9.5 (4.0-10.5) K/mm3 RBC 4.62 (4.1-5.4) M/mm3 Hgb 13.6 (12.0-16.0) gm/dl Hct 41.8 (35-47) % MCV 90.5 (78-100) fl MCH 29.4 (26-32) pg MCHC 32.5 (32-36) g/dl RDW 14.8 H (11.5-14.0) % Plt Count 256 (150-450) K/mm3 MPV 11.8 H (7.5-11.0) fl Gran % 57.5 (36.0-66.0) % Eos # (Auto) 0.15 (0-0.5) Absolute Lymphs (auto) 3.07 (1.0-4.6) Absolute Monos (auto) 0.80 (0.0-1.3) Lymphocytes % 32.2 (24.0-44.0) % Monocytes % 8.4 (0.0-12.0) % Eosinophils % 1.6 (0.00-5.0) % Basophils % 0.3 (0.0-0.4) % Absolute Granulocytes 5.48 (1.4-6.9) Basophils # 0.03 (0-0.4) Sodium 142 (137-145) mmol/L Potassium 3.7 (3.5-5.1) mmol/L Chloride 107 (98-107) mmol/L Carbon Dioxide 27 (22-30) mmol/L Anion Gap 12.2 (5-15) MEQ/L BUN 17 (7-17) mg/dL Creatinine 0.86 (0.52-1.04) mg/dL Estimated GFR > 60.0 ML/MIN Glucose 90 (74-106) mg/dL Calcium 9.5 (8.4-10.2) mg/dL Total Bilirubin 1.20 (0.2-1.3) mg/dL AST 27 (14-36) U/L ALT 24 (0-35) U/L Alkaline Phosphatase 132 H (38-126) U/L Creatine Kinase 120 (30-135) U/L Troponin I < 0.012 (0.000-0.034) ng/mL NT-Pro-B Natriuret Pep 336 (0-900) pg/mL Serum Total Protein 8.3 H (6.3-8.2) g/dL Albumin 4.5 (3.5-5.0) g/dL Lipase (23-300) U/L TSH 3rd Generation (0.47-4.68) mIU/L Urine Color (YELLOW) Urine Appearance (CLEAR) Urine pH (5-6) Ur Specific [place] (1.005-1.025) Urine Protein (Negative) Urine Ketones (NEGATIVE) Urine Blood (0-5) Anshul/ul Urine Nitrite (NEGATIVE) Urine Bilirubin (NEGATIVE) Urine Urobilinogen (0-1) mg/dL Ur Leukocyte Esterase (NEGATIVE) Urine WBC (Auto) (0-5) /HPF Urine RBC (Auto) (0-2) /HPF U Epithel Cells (Auto) (FEW) /HPF Urine Bacteria (Auto) (NEGATIVE) /HPF Urine Culture Reflexed (NO) Urine Glucose (NEGATIVE) mg/dL 10/29/19 10/29/19 10/29/19 Range/Units 17:38 17:41 20:05 WBC (4.0-10.5) K/mm3 RBC (4.1-5.4) M/mm3 Hgb (12.0-16.0) gm/dl Hct (35-47) % MCV (78-100) fl MCH (26-32) pg MCHC (32-36) g/dl RDW (11.5-14.0) % Plt Count (150-450) K/mm3 MPV (7.5-11.0) fl Gran % (36.0-66.0) % Eos # (Auto) (0-0.5) Absolute Lymphs (auto) (1.0-4.6) Absolute Monos (auto) (0.0-1.3) Lymphocytes % (24.0-44.0) % Monocytes % (0.0-12.0) % Eosinophils % (0.00-5.0) % Basophils % (0.0-0.4) % Absolute Granulocytes (1.4-6.9) Basophils # (0-0.4) Sodium (137-145) mmol/L Potassium (3.5-5.1) mmol/L Chloride (98-107) mmol/L Carbon Dioxide (22-30) mmol/L Anion Gap (5-15) MEQ/L BUN (7-17) mg/dL Creatinine (0.52-1.04) mg/dL Estimated GFR ML/MIN Glucose (74-106) mg/dL Calcium (8.4-10.2) mg/dL Total Bilirubin (0.2-1.3) mg/dL AST (14-36) U/L ALT (0-35) U/L Alkaline Phosphatase (38-126) U/L Creatine Kinase (30-135) U/L Troponin I < 0.012 (0.000-0.034) ng/mL NT-Pro-B Natriuret Pep (0-900) pg/mL Serum Total Protein (6.3-8.2) g/dL Albumin (3.5-5.0) g/dL Lipase 106 (23-300) U/L TSH 3rd Generation (0.47-4.68) mIU/L Urine Color STRAW (YELLOW) Urine Appearance CLEAR (CLEAR) Urine pH 6.0 (5-6) Ur Specific [place] 1.009 (1.005-1.025) Urine Protein NEGATIVE (Negative) Urine Ketones NEGATIVE (NEGATIVE) Urine Blood NEGATIVE (0-5) Anshul/ul Urine Nitrite NEGATIVE (NEGATIVE) Urine Bilirubin NEGATIVE (NEGATIVE) Urine Urobilinogen NEGATIVE (0-1) mg/dL Ur Leukocyte Esterase MODERATE (NEGATIVE) Urine WBC (Auto) 16-25 (0-5) /HPF Urine RBC (Auto) NONE (0-2) /HPF U Epithel Cells (Auto) NONE (FEW) /HPF Urine Bacteria (Auto) FEW (NEGATIVE) /HPF Urine Culture Reflexed YES (NO) Urine Glucose NEGATIVE (NEGATIVE) mg/dL 10/29/19 10/30/19 10/30/19 Range/Units 23:15 02:15 05:00 WBC (4.0-10.5) K/mm3 RBC (4.1-5.4) M/mm3 Hgb (12.0-16.0) gm/dl Hct (35-47) % MCV (78-100) fl MCH (26-32) pg MCHC (32-36) g/dl RDW (11.5-14.0) % Plt Count (150-450) K/mm3 MPV (7.5-11.0) fl Gran % (36.0-66.0) % Eos # (Auto) (0-0.5) Absolute Lymphs (auto) (1.0-4.6) Absolute Monos (auto) (0.0-1.3) Lymphocytes % (24.0-44.0) % Monocytes % (0.0-12.0) % Eosinophils % (0.00-5.0) % Basophils % (0.0-0.4) % Absolute Granulocytes (1.4-6.9) Basophils # (0-0.4) Sodium (137-145) mmol/L Potassium (3.5-5.1) mmol/L Chloride (98-107) mmol/L Carbon Dioxide (22-30) mmol/L Anion Gap (5-15) MEQ/L BUN (7-17) mg/dL Creatinine (0.52-1.04) mg/dL Estimated GFR ML/MIN Glucose (74-106) mg/dL Calcium (8.4-10.2) mg/dL Total Bilirubin (0.2-1.3) mg/dL AST (14-36) U/L ALT (0-35) U/L Alkaline Phosphatase (38-126) U/L Creatine Kinase (30-135) U/L Troponin I < 0.012 < 0.012 (0.000-0.034) ng/mL NT-Pro-B Natriuret Pep (0-900) pg/mL Serum Total Protein (6.3-8.2) g/dL Albumin (3.5-5.0) g/dL Lipase (23-300) U/L TSH 3rd Generation 3.840 (0.47-4.68) mIU/L Urine Color (YELLOW) Urine Appearance (CLEAR) Urine pH (5-6) Ur Specific [place] (1.005-1.025) Urine Protein (Negative) Urine Ketones (NEGATIVE) Urine Blood (0-5) Anshul/ul Urine Nitrite (NEGATIVE) Urine Bilirubin (NEGATIVE) Urine Urobilinogen (0-1) mg/dL Ur Leukocyte Esterase (NEGATIVE) Urine WBC (Auto) (0-5) /HPF Urine RBC (Auto) (0-2) /HPF U Epithel Cells (Auto) (FEW) /HPF Urine Bacteria (Auto) (NEGATIVE) /HPF Urine Culture Reflexed (NO) Urine Glucose (NEGATIVE) mg/dL 10/30/19 10/30/19 10/30/19 Range/Units 05:16 05:16 05:16 WBC 7.0 (4.0-10.5) K/mm3 RBC 4.35 (4.1-5.4) M/mm3 Hgb 12.7 (12.0-16.0) gm/dl Hct 39.7 (35-47) % MCV 91.3 (78-100) fl MCH 29.2 (26-32) pg MCHC 32.0 (32-36) g/dl RDW 14.9 H (11.5-14.0) % Plt Count 208 (150-450) K/mm3 MPV 11.7 H (7.5-11.0) fl Gran % 60.8 (36.0-66.0) % Eos # (Auto) 0.22 (0-0.5) Absolute Lymphs (auto) 1.90 (1.0-4.6) Absolute Monos (auto) 0.59 (0.0-1.3) Lymphocytes % 27.2 (24.0-44.0) % Monocytes % 8.5 (0.0-12.0) % Eosinophils % 3.2 (0.00-5.0) % Basophils % 0.3 (0.0-0.4) % Absolute Granulocytes 4.25 (1.4-6.9) Basophils # 0.02 (0-0.4) Sodium 140 (137-145) mmol/L Potassium 4.2 (3.5-5.1) mmol/L Chloride 107 (98-107) mmol/L Carbon Dioxide 26 (22-30) mmol/L Anion Gap 10.5 (5-15) MEQ/L BUN 13 (7-17) mg/dL Creatinine 0.76 (0.52-1.04) mg/dL Estimated GFR > 60.0 ML/MIN Glucose 99 (74-106) mg/dL Calcium 8.7 (8.4-10.2) mg/dL Total Bilirubin 1.00 (0.2-1.3) mg/dL AST 22 (14-36) U/L ALT 18 (0-35) U/L Alkaline Phosphatase 98 (38-126) U/L Creatine Kinase (30-135) U/L Troponin I < 0.012 (0.000-0.034) ng/mL NT-Pro-B Natriuret Pep (0-900) pg/mL Serum Total Protein 6.4 (6.3-8.2) g/dL Albumin 3.5 (3.5-5.0) g/dL Lipase (23-300) U/L TSH 3rd Generation (0.47-4.68) mIU/L Urine Color (YELLOW) Urine Appearance (CLEAR) Urine pH (5-6) Ur Specific [place] (1.005-1.025) Urine Protein (Negative) Urine Ketones (NEGATIVE) Urine Blood (0-5) Anshul/ul Urine Nitrite (NEGATIVE) Urine Bilirubin (NEGATIVE) Urine Urobilinogen (0-1) mg/dL Ur Leukocyte Esterase (NEGATIVE) Urine WBC (Auto) (0-5) /HPF Urine RBC (Auto) (0-2) /HPF U Epithel Cells (Auto) (FEW) /HPF Urine Bacteria (Auto) (NEGATIVE) /HPF Urine Culture Reflexed (NO) Urine Glucose (NEGATIVE) mg/dL Microbiology 10/29/19 17:41 Urine Culture - Preliminary Urine, Void NO GROWTH TO DATE - Radiology Impressions Radiology Exams & Impressions: Radiology Procedures Category Date Time Status ABDOMEN AND PELVIS W CONTRAST [CT] Stat Exams 10/29/19 17:17 Completed CHEST 1 VIEW (PORTABLE) Stat Exams 10/29/19 17:13 Completed - Other Procedures and Tests Respiratory Therapy 10/29/19 21:55 BiPap/CPAP ROUTINE Assessment/Plan (1) Abdominal pain in female patient Current Visit: Yes Status: Acute Code(s): R10.9 - UNSPECIFIED ABDOMINAL PAIN (2) Gastritis/duodenitis Current Visit: Yes Status: Acute Code(s): K29.90 - GASTRODUODENITIS, UNSPECIFIED, WITHOUT BLEEDING (3) Hx pulmonary embolism Current Visit: Yes Status: Acute Code(s): Z86.711 - PERSONAL HISTORY OF PULMONARY EMBOLISM (4) Chest pain Current Visit: No Status: Acute Code(s): R07.9 - CHEST PAIN, UNSPECIFIED
[2019-10-30] MEDS: Sodium Chloride 0.9% 1000 ML 1,000 ML IV SCH (17:04)
[2019-10-30] MEDS: Zofran 4 MG/2 ML VIAL IV PRN (18:43)
[2019-10-30] MEDS ORDERED: CITROMA 296 ML PO ONE (20:30)
[2019-10-30] MEDS: ZOCOR 20MG PO SCH (21:26)
[2019-10-31] MEDS: Sodium Chloride 0.9% 1000 ML 1,000 ML IV SCH ×2 (01:35→16:30)
[2019-10-31] MEDS: Carafate 1 GM PO SCH ×4 (07:36→21:36)
[2019-10-31] MEDS: ELIQUIS 2.5 MG TABLET PO SCH ×2 (09:18→21:36)
[2019-10-31] MEDS: hydroDIURIL 25 MG PO SCH (09:19)
[2019-10-31] MEDS: Pepcid 20 MG VIAL IV SCH ×2 (09:47→21:39)
[2019-10-31] MEDS: Cozaar 50 MG PO SCH (09:47)
[2019-10-31] MEDS: PROTONIX 40 MG IV IV SCH (09:47)
[2019-10-31] MEDS ORDERED: NON-FORMULARY ITEM (Hydrochlorothiazide [Hydrochlorothiazide] 12.5 MG) PO SCH (10:00)
--- NOTE | 2019-10-31 10:57 | PCM.NOTE ---
Date and Time: 10/31/19 1052 Subjective Assessment: 59 yr old female seen and examined this am. Patient reports her abdominal pain is improved since admission but is exactly the same as it was yesterday. She reports that she did have a BM this am and that she thinks she noticed some blood. Patient was wanting surgery to come and see her as she was seen prev iously by Peterson Cisneros and was told she had PUD and a hiatal hernia and she was supposed to have follow up for this but has not had a chance. Patient wanted to know if she still had PE she was diagnosed with on 10/13/19. Patient reports that she had significant vomiting last night and vomited the mag citrate and her food. She continues with decreased appetite this am. She denies fever. She reported the morphine helped and she had two doses but her vital signs dropped. Nurse reports they had to hold her beta bonny due to HR in the 40s. Patient initially seemed anxious to go home but has multiple concerns about the abdominal pain and her vitals signs and previous PE. She reports she has had this abdominal pain since Patient also states she was aware she had diverticulosis but recently has been sunflower seeds with her salads. She reports all of this abdominal pain she is having started post cardiac cath. - Review of Systems Constitutional: No Fever, No Weakness Eyes: No Symptoms Ears, Nose, & Throat: No Symptoms Respiratory: Short Of Breath, No Cough, No Wheezing Cardiac: Chest Pain, Palpitations, No Edema Abdominal/Gastrointestinal: Abdominal Pain, Nausea, Vomiting, Hematochezia, No Diarrhea, No Constipation Genitourinary Symptoms: No Symptoms Musculoskeletal: No Symptoms Skin: No Symptoms Neurological: No Symptoms Psychological: Anxiety Hematologic/Lymphatic: No Anemia Objective Exam General Appearance: mild distress, alert, anxiety, obese Neurologic Exam: alert, oriented x 3, cooperative, cullet crusher II-XII nml as tested, other (pressured speech), No disoriented, No confusion, No agitation, No uncooperative, No depressed mood/affect Skin Exam: normal color, warm, dry, No rash, No jaundice Eye Exam: eyes nml inspection, No scleral icterus Ears, Nose, Throat Exam: moist mucous membranes Neck Exam: normal inspection Respiratory Exam: normal breath sounds, lungs clear, No chest tenderness, No respiratory distress, No diminished breath sounds, No wheezing Cardiovascular Exam: normal heart sounds, bradycardia, No murmur, No friction rub, No gallop, No irregular, No edema Gastrointestinal/Abdomen Exam: soft, normal bowel sounds, tenderness, No distention, No mass, No guarding, No rebound Extremity Exam: normal inspection, No pedal edema, No swelling OBJECTIVE DATA Vital Signs: Vital Signs - 24 hr Temp Pulse Resp BP Pulse Ox 10/31/19 07:21 97.7 F 68 18 123/77 97 10/31/19 04:30 97.7 F 62 20 110/53 95 10/31/19 00:00 56 L 15 95 10/30/19 19:47 97.7 F 58 L 18 113/63 97 10/30/19 16:00 97.8 F 63 16 116/62 96 10/30/19 12:00 97.7 F 61 16 130/76 96 Pain Assessment - Last Documented Pain Intensity 2 Pain Scale Used 0-10 Pain Scale Intake and Output: Intake & Output 10/28/19 10/29/19 10/30/19 10/31/19 11:59 11:59 11:59 11:59 Intake Total 1646 2543 Output Total 500 Balance 1146 2543 Weight 127.006 kg Lab Results: Lab Results-Last 24 Hours 10/30/19 Range/Units 05:00 TSH 3rd Generation 3.840 (0.47-4.68) mIU/L Radiology Exams: Radiology Procedures Category Date Time Status ABDOMEN AND PELVIS W CONTRAST [CT] Stat Exams 10/29/19 17:17 Completed CHEST 1 VIEW (PORTABLE) Stat Exams 10/29/19 17:13 Completed Assessment/Plan (1) Abdominal pain in female patient Current Visit: Yes Status: Acute Assessment & Plan: Patient had CT that showed diverticulosis but did not indicate diverticulitis flare. It noted fecal stasis. Patient was given mag citrate which she vomited. Will attempt to give mag citrate again. Patient did have BM today and FOBT was collected will follow up on results. She has hx of hiatal hernia which was rep orted as small on CT and a self reported history of PUD which she has seen Peterson Cisneros for. Surgery consult was placed but unsure if anything needs urgent tx. Patient was given morphine which helped but her vitals are not tolerating it well. Will consider tramadol as alternative. Patient reports that the GI cocktail did not help at all. FOBT was positive. Surgery plans to take her for scope tomorrow Code(s): R10.9 - UNSPECIFIED ABDOMINAL PAIN (2) Hx pulmonary embolism Current Visit: Yes Status: Acute Assessment & Plan: Patient was on plavix and recently switched to eliquis. The PE on CT was noted as small and non obstructing. She was concerned that it was still present. D iscussed that she is on appropriate tx. Her VS dont indicate it is still there. She has been a little short of breath but not this am. She has been bradycardic. Code(s): Z86.711 - PERSONAL HISTORY OF PULMONARY EMBOLISM (3) Chest pain Current Visit: No Status: Acute Assessment & Plan: Patient reports recent NC. She was transferred to [facility] and had a clean cath that did not require stents. Unsure if patient had NSTEMI. She did have a PE on 10/12 but I dont see trops that indicate NSTEMI. She has had ekg x2 and trops times 3 which were neg for NC. She was started on tele and has not had any reported chest flutter sensation like she had prior to coming to hospital. ACS h as been ruled out. PE was on R side but she reports left sided chest pain. Will continue to monitor on tele. Patient is reporting both chest and abdomen pain. Code(s): R07.9 - CHEST PAIN, UNSPECIFIED
[2019-10-31 14:00] LABS: Absolute Neutrophil Ct (ANC) 4.68 (1.4-6.9); BASOPHIL % 0.3 % (0.0-0.4); Basophil (Absolute #) 0.02 (0-0.4); Eosinophil % 2.2 % (0.00-5.0); Eosinophil (Absolute #) 0.15 (0-0.5); Hematocrit 39.2 % (35-47); Hemoglobin 12.7 gm/dl (12.0-16.0); Mean Cell Volume 91.8 fl (78-100); Mean Corpuscular Hemoglobin 29.7 pg (26-32); Mean Corpuscular Hgb Concent. 32.4 g/dl (32-36); Mean Platelet Volume 11.5 fl (7.5-11.0); Monocyte (Absolute #) 0.48 (0.0-1.3); Neutrophil % 68.5 % (36.0-66.0); Platelet Count 210 K/mm3 (150-450); Red Blood Count 4.27 M/mm3 (4.1-5.4); Red Cell Distribution Width 14.8 % (11.5-14.0); White Blood Count 6.8 K/mm3 (4.0-10.5)
[2019-10-31] MEDS: ULTRAM 50 MG PO PRN (14:42)
[2019-10-31 14:44] LABS: ANION GAP 11.6 MEQ/L (5-15); BLOOD UREA NITROGEN 16 mg/dL (7-17); CHLORIDE 109 mmol/L (98-107); Calcium 8.6 mg/dL (8.4-10.2); Carbon Dioxide 24 mmol/L (22-30); Creatinine 1 0.77 mg/dL (0.52-1.04); Glucose 122 mg/dL (74-106); NT PRO BNP 279 pg/mL (0-900); SODIUM 141 mmol/L (137-145)
[2019-10-31] MEDS: Lopressor 25MG Tab PO SCH (21:37)
[2019-10-31] MEDS: ZOCOR 20MG PO SCH (21:38)
[2019-11-01] MEDS: Sodium Chloride 0.9% 1000 ML 1,000 ML IV SCH ×2 (02:08→18:24)
[2019-11-01] MEDS: ULTRAM 50 MG PO PRN (06:33)
[2019-11-01] MEDS: xanAX 0.25 MG PO PRN ×2 (08:11→23:36)
[2019-11-01] MEDS: Carafate 1 GM PO SCH ×4 (08:11→21:02)
[2019-11-01] MEDS: Pepcid 20 MG VIAL IV SCH ×2 (08:12→21:02)
[2019-11-01] MEDS: Zofran 4 MG/2 ML VIAL IV PRN (08:12)
[2019-11-01] MEDS: PROTONIX 40 MG IV IV SCH (08:12)
[2019-11-01] MEDS: Cozaar 50 MG PO SCH (10:45)
[2019-11-01] MEDS: ELIQUIS 2.5 MG TABLET PO SCH ×2 (11:04→21:02)
[2019-11-01] MEDS: hydroDIURIL 25 MG PO SCH (11:04)
[2019-11-01] MEDS ORDERED: Lactated Ringers 1,000 ML IV SCH (12:30)
--- NOTE | 2019-11-01 14:42 | CONS ---
CONSULT DATE: 11/01/2019 This patient is seen for Dr. Samson Cisneros who was sanitation supervisor when the consult came in. HISTORY: A 59 year old female apparently was in [place] and had a heart attack a few short weeks ago. It sounds like she may have had pulmonary embolism, according to the patient. She is a little vague on the details. PAST MEDICAL HISTORY: Includes obesity and hypertension. She had myocardial infarction in the past. It sounds like she had some anxiety. She had some peptic ulcer disease on endoscopy by Dr. Keiko Cisneros a couple of years ago apparently. She did have a heart cath and myocardial infarction a couple of weeks ago. She does not have any stents, according to the patient. PAST SURGICAL HISTORY: Hysterectomy. Appendectomy. MEDICATIONS: She has been on Alprazolam, pantoprazole, Eliquis, Plavix and atorvastatin, Cozaar, metoprolol/hydrochlorothiazide. ALLERGIES: HYDROMORPHONE. FAMILY HISTORY: Negative in regards to this problem. SOCIAL HISTORY: No smoking. No alcohol abuse. LAB DATA AND TESTS: White count 9.5, hemoglobin 15.6, PLT 256,000 when she came in on admission a few days ago. She has been here for about three days. Dr. Cisneros was on over the weekend not sure when he was called. CT scan showed very small hiatal hernia otherwise no acute process. Again, she said she had peptic ulcer disease by Dr. Keiko Cisneros in the past on endoscopy a couple of years ago. She said they have not done a work up on her gallbladder in the past. REVIEW OF SYSTEMS: Fourteen systems reviewed per admission assessment. PHYSICAL EXAMINATION: GENERAL: No acute distress. She is sitting up playing games with a sister or friend at the bedside, in no acute distress. HEENT: Sclera nonicteric. NECK: No JVD. CHEST: Equal excursion, nonlabored breathing. CVS: Regular rate and rhythm. ABDOMEN: Obese, soft, minimal to mild tenderness. No peritoneal signs. EXTREMITIES: No cyanosis. NEURO: Alert, moving extremities grossly symmetrically. IMPRESSION: Some abdominal pain of unclear etiology. It could be gastritis, peptic ulcer disease versus other etiology. She has been on thinners. She is in need of upper endoscopy for further evaluation. Risks and benefits explained in detail including but not limited to bleeding or infection, risk of bowel injury or perforation possibly requiring further procedure. She understands she has been on the blood thinners recently. Will likely hold and consider biopsy or more of a diagnostic-type procedure. She understands and agrees to the plan. If this is negative she might need further workup but not emergent. Other general surgeon necessary at this time as she would benefit from upper endoscopy.
[2019-11-01] MEDS ORDERED: DIPRIVAN 200 MG/20 ML IV ONE (14:46)
[2019-11-01] MEDS ORDERED: Ketamine HCl 50 MG/ML ONE (14:46)
[2019-11-01] MEDS ORDERED: Xylocaine-Mpf 2% 5 Ml Vial ONE (14:47)
[2019-11-01] MEDS: Lopressor 25MG Tab PO SCH (18:12)
[2019-11-01] MEDS: ZOCOR 20MG PO SCH (21:02)
[2019-11-02] MEDS: Sodium Chloride 0.9% 1000 ML 1,000 ML IV SCH (04:24)
[2019-11-02] MEDS: Carafate 1 GM PO SCH (07:34)
[2019-11-02 08:08] VITALS: BP 154/72; PULSE 62; O2SAT 96
[2019-11-02] MEDS: PROTONIX 40 MG IV IV SCH (09:33)
[2019-11-02] MEDS: Pepcid 20 MG VIAL IV SCH (09:33)
[2019-11-02] MEDS: Cozaar 50 MG PO SCH (09:33)
[2019-11-02] MEDS: ELIQUIS 2.5 MG TABLET PO SCH (09:34)
[2019-11-02] MEDS: hydroDIURIL 25 MG PO SCH (09:34)
--- NOTE | 2019-11-02 09:36 | OP ---
SURGERY DATE/TIME: 11/01/2019 1448 PREOPERATIVE DIAGNOSIS: Abdominal pain unclear etiology, prior history of peptic ulcer disease. POSTOPERATIVE DIAGNOSES: 1) Moderate gastritis. No gross ulcer. 2) Small gastric polyp. PROCEDURES: EGD with cold biopsy of small gastric polyp for path and to check for Helicobacter pylori. SURGEON: Dr. Cosmo Ayon. ANESTHESIA: MAC. ESTIMATED BLOOD LOSS: Minimal. INDICATIONS: As noted above. Risks and benefits explained in detail and not limited to and consent obtained. DESCRIPTION OF PROCEDURE AND FINDINGS: The patient is taken to the endoscopy room. MAC anesthesia introduced. After official time out and no disagreement with planned procedure, a bite block positioned. Video gastroscope easily passed down the esophagus through the patent pylorus to the junction of the second and third portion of the duodenum. Third, second and first portion of the duodenum grossly unremarkable. Back in the stomach she did have a little bit of moderate gastritis. There was no taj ulceration. Whether this had been gastritis that had been healing from a recent stress from combination of loss of family member and she had myocardial infarction a couple weeks ago is unclear. There was a small gastric polyp that was removed with cold biopsy forceps. This was sent for path and also check for Helicobacter pylori. Good hemostasis was noted. On retroflex she had a very small slight hiatal hernia. Otherwise gastroesophageal junction was fairly crisp. No signs of any significant Catrachito's. No significant signs of any extensive erosion in the esophagus. Fairly unremarkable gastroesophageal junction area. Given the fact she is on Eliquis, it was felt she should not undergo multiple biopsies due to the risk of bleeding. The remainder of the esophagus is grossly unremarkable. No gross mucosal lesions. The scope is withdrawn. The patient tolerated the procedure well. Findings discussed with the family or friend out in the waiting area.
--- NOTE | 2019-11-02 09:37 | PCM.NOTE ---
Date and Time: 11/02/1936 OBJECTIVE DATA Vital Signs: Vital Signs - 24 hr Temp Pulse Resp BP Pulse Ox 11/02/19 08:00 62 16 154/72 96 11/02/19 04:00 96.7 F 61 16 134/67 94 L 11/01/19 23:34 98.2 F 62 17 134/61 97 11/01/19 19:30 98 F 72 16 126/58 96 11/01/19 16:00 98.2 F 48 L 18 128/56 95 11/01/19 11:28 97.8 F 53 L 18 123/67 95 Pain Assessment - Last Documented Pain Intensity 4 Pain Scale Used 0-10 Pain Scale Intake and Output: Intake & Output 10/30/19 10/31/19 11/01/19 11/02/19 11:59 11:59 11:59 11:59 Intake Total 1646 2543 2591 3512 Output Total 500 1 Balance 1146 2543 2590 3512 Weight 127.006 kg 127.006 kg Multi-Disciplinary Progress Notes: Multi-Disciplinary Progress Notes 11/02/19 09:01 Case Management Note by Brittany Ortega PATIENT CONTINUES TO DENY ANY NEEDS REGARDING DC AT THIS TIME Initialized on 11/02/19 09:01 - END OF NOTE 11/01/19 10:23 Case Management Note by Brittany Ortega NO NEW NEEDS IDENTIFIED FOR DC AT THIS TIME. ANTICIPATE DC AFTER EGD AT 2PM DEPENDING ON FINDINGS Initialized on 11/01/19 10:23 - END OF NOTE Assessment/Plan (1) Abdominal pain in female patient Current Visit: Yes Status: Acute Code(s): R10.9 - UNSPECIFIED ABDOMINAL PAIN (2) Gastritis/duodenitis Current Visit: Yes Status: Acute Code(s): K29.90 - GASTRODUODENITIS, UNSPECIFIED, WITHOUT BLEEDING (3) Hx pulmonary embolism Current Visit: Yes Status: Acute Code(s): Z86.711 - PERSONAL HISTORY OF PULMONARY EMBOLISM (4) Chest pain Current Visit: No Status: Acute Code(s): R07.9 - CHEST PAIN, UNSPECIFIED
--- NOTE | 2019-11-02 09:50 | PCM.DS ---
Discharge Summary Date of Admission: 10/29/19 20:19 Admitting Physician: LORENZA MCLAIN MD Consults: Consults on Case 10/31/19 10:01 Consult Surgery ROUTINE Primary Care Provider: DEDE MCDONOUGH Allergies Allergies hydromorphone [From Dilaudid] Adverse Reaction (Mild, Verified 10/29/19 16:54) Vomiting Hospital Summary - Vitals & Intake/Output Vital Signs: Vital Signs Temperature 96.7 F 11/02/19 04:00 Pulse Rate 62 11/02/19 08:00 Respiratory Rate 16 11/02/19 08:00 Blood Pressure 154/72 11/02/19 08:00 O2 Sat by Pulse Oximetry 96 11/02/19 08:00 Intake & Output: Intake & Output 10/30/19 10/31/19 11/01/19 11/02/19 11:59 11:59 11:59 11:59 Intake Total 1646 2543 2591 3512 Output Total 500 1 Balance 1146 2543 2590 3512 Weight 127.006 kg 127.006 kg - Lab Result Diagrams: 10/31/19 13:30 10/31/19 13:30 Micro Results-Entire Visit: Microbiology 10/29/19 17:41 Urine Culture - Final Urine, Void <10K NORMAL SKIN PEDRO PROBABLE SKIN CONTAMINANT - Procedures and Test Procedures and Tests throughout Hospitalization: Therapy Orders & Screens 10/29/19 21:55 BiPap/CPAP ROUTINE Comment: PER HOME SETTINGS Diagnosis: abdominal pain Final Diagnosis/Problem List - Final Discharge Diagnosis/Problem (1) Abdominal pain in female patient Current Visit: Yes Status: Acute Code(s): R10.9 - UNSPECIFIED ABDOMINAL PAIN (2) Gastritis/duodenitis Current Visit: Yes Status: Acute Code(s): K29.90 - GASTRODUODENITIS, UNSPECIFIED, WITHOUT BLEEDING (3) Hx pulmonary embolism Current Visit: Yes Status: Acute Code(s): Z86.711 - PERSONAL HISTORY OF PULMONARY EMBOLISM (4) Chest pain Current Visit: No Status: Acute Code(s): R07.9 - CHEST PAIN, UNSPECIFIED - Discharge Disposition: Home, Self-Care Condition: Fair Prescriptions: New Sucralfate 1 gm [Carafate 1 GM] 1 g PO ACHS 7 Days #28 tablet Tramadol HCl 50 mg [Ultram 50 mg] 50 mg PO BID PRN PRN 3 Days #6 tablet PRN Reason: Pain Ondansetron HCl 4 mg/2 ml [Zofran 4 MG/2 ML VIAL] 4 mg .ROUTE Q6H PRN PRN 5 Days #20 tab-cap PRN Reason: Nausea/Vomiting Ciprofloxacin [Cipro 500 MG] 500 mg PO BID 7 Days #14 tablet Metronidazole 500 mg PO BID 7 Days #14 tablet Continue PANTOPRAZOLE 40 mg Tablet [Protonix 40MG Tablet] 40 mg PO DAILY Alprazolam 0.25 mg [xanAX 0.25 MG] 0.25 mg PO BID PRN PRN Reason: Anxiety Apixaban [Eliquis] 5 mg PO BID Atorvastatin Calcium 40 mg PO HS hydroCHLOROthiazide [Hydrochlorothiazide] 12.5 mg PO DAILY Losartan Potassium [Cozaar] 100 mg PO DAILY Metoprolol Tartrate 25 mg [Lopressor 25MG Tab] 25 mg PO HS Discontinued Clopidogrel Bisulfate 75 mg [PLAVIX 75 MG Tablet] 75 mg PO DAILY Instructions: Ulcer and Gastritis Diet Additional Instructions: DR NAGY APPOINTMENT IN [place] AT [facility] DEDE MCDONOUGH NP NEW PHONE # [phone]. Follow up with: TONYA NAGY [COURTESY STAFF] - 11/08/19 9:40 am DEDE MCDONOUGH NP [Primary Care Provider] - 11/24/19 3:15 pm
== END 2019-11-02 11:05 | disposition home or self-care (01) ==
LOC: ED 16:50 → MED SURG 20:19
PROVIDERS: ADMIT Family Medicine; ATTEND Family Medicine
DX: R10.9 Unspecified abdominal pain (principal); K29.90 Gastroduodenitis, unspecified, without bleeding; K29.70 Gastritis, unspecified, without bleeding; R07.9 Chest pain, unspecified; I10 Essential (primary) hypertension; K44.9 Diaphragmatic hernia without obstruction or gangrene; K31.7 Polyp of stomach and duodenum; R06.02 Shortness of breath; I25.2 Old myocardial infarction; R00.2 Palpitations; Z79.01 Long term (current) use of anticoagulants; Z79.899 Other long term (current) drug therapy; Z86.711 Personal history of pulmonary embolism
CPT/HCPCS: 36415; 43239; 74177; 80048; 80053; 81001; 82550; 83690; 83880; 84443; 84484; 85025; 87086; 93005; 94002; 94660; 96374; 96375; 99291; G0328; 36000; 71045; 82274; 93268; 99285; G0378; J2060; J2270; J2405; J2704; J3360; A9270-GY

== ENCOUNTER 2019-11-26 16:19 | Emergency (ER) | payer OTHER ==
[2019-11-26] MEDS ORDERED: Nitrostat 0.4 MG (ED) SL ONE (16:29)
[2019-11-26] MEDS ORDERED: BABY ASPIRIN 81 MG CHEW PO ONE (16:29)
--- NOTE | 2019-11-26 16:29 | ERPHSYRPT ---
- History of Present Illness Time Seen by Provider: 11/26/19 16:25 Historian: patient Exam Limitations: no limitations Physician History: This is a 59-year-old white female who has a history of hypertension who was recently diagnosed with a non-STEMI myocardial infarction approximately 6 weeks ago. At that time patient was having some left-sided chest pain with radiation to her left lateral ribs. Patient was seen a Dr. Koroma who is a rn mental health at [facility]. Patient is taking losartan, hydrochlorothiazide and amlodipine for her blood pressure issues. She is also on Eliquis. Approximately 6 weeks ago she was also found to have tiny nonoccluding right upper lobe pulmonary emboli on the chest CAT scan that was done with contrast. This morning, the patient states that she was having mid substernal chest pressure that was nonradiating. She also has had elevated blood pressure despite the medication. She is here because of the chest pressure and the hypertension she is experiencing. Patient denies fever she denies cough she denies abdominal pain she denies nausea vomiting and diarrhea. Timing/Duration: today Activities at Onset: none Quality: pressure Location: substernal, central Chest Pain Radiation: no radiation Severity of Pain-Max: mild Severity of Pain-Current: mild Associated Symptoms: denies symptoms Prior Chest Pain/Cardiac Workup: cardiac cath, heart attack, pulmonary embolism, recently seen/treated, recent hospitalization Nitro Today/Relief: no nitro taken today Aspirin Treatment Today: no aspirin today Allergies/Adverse Reactions: hydromorphone [From Dilaudid] Adverse Reaction (Mild, Verified 10/29/19 16:54) Vomiting Home Medications: PANTOPRAZOLE 40 mg Tablet [Protonix 40MG Tablet] 40 mg PO DAILY 10/13/19 [History] Apixaban [Eliquis] 5 mg PO BID 10/29/19 [History] Losartan Potassium [Cozaar] 100 mg PO DAILY 10/29/19 [History] Amlodipine Besylate 5 mg [Norvasc 5 mg] 5 mg PO DAILY 11/26/19 [History] Cephalexin Mh 500 mg [Keflex 500 mg] 500 mg PO BID 11/26/19 [History] Triamterene/Hydrochlorothiazid [Triamterene-Hctz 37.5-25 mg Tb] 1 each PO DAILY 11/26/19 [History] Hx Tetanus, Diphtheria Vaccination/Date Given: No Hx Influenza Vaccination/Date Given: No Hx Pneumococcal Vaccination/Date Given: No Travel Risk - International Travel Have you traveled outside of the country in past 3 weeks: No - Coronavirus Screening Are you exhibiting any of the following symptoms?: No Close contact with a COVID-19 positive Pt in past 14-21 Days: No - Review of Systems Constitutional: No Symptoms Eyes: No Symptoms Ears, Nose, & Throat: No Symptoms Respiratory: No Symptoms Cardiac: Chest Pain Abdominal/Gastrointestinal: No Symptoms Genitourinary Symptoms: No Symptoms Musculoskeletal: No Symptoms Skin: No Symptoms Neurological: No Symptoms Psychological: No Symptoms Endocrine: No Symptoms Hematologic/Lymphatic: No Symptoms Immunological/Allergic: No Symptoms All Other Systems: Reviewed and Negative - Past Medical History Pertinent Past Medical History: Yes Neurological History: No Pertinent History ENT History: No Pertinent History Cardiac History: Hypertension, Myocardial Infarction ([place]) Respiratory History: No Pertinent History Endocrine Medical History: Hypoglycemia Musculoskeletal History: No Pertinent History GI Medical History: Ulcer History: No Pertinent History Psycho-Social History: Anxiety Female Reproductive Disorders: No Pertinent History Other Medical History: [place] and heart cath two weeks ago - Past Surgical History Past Surgical History: Yes Neuro Surgical History: No Pertinent History Cardiac: Cardiac Catheterization Respiratory: No Pertinent History Gastrointestinal: Appendectomy Genitourinary: No Pertinent History Musculoskeletal: No Pertinent History Female Surgical History: Hysterectomy - Social History Smoking Status: Never smoker Exposure to second hand smoke: No Drug Use: none Patient Lives Alone: Yes - Nursing Vital Signs Nursing Vital Signs: Initial Vital Signs Temperature 99.2 F 11/26/19 16:20 Pulse Rate 107 H 11/26/19 16:20 Respiratory Rate 22 11/26/19 16:20 Blood Pressure 165/112 11/26/19 16:20 O2 Sat by Pulse Oximetry 95 11/26/19 16:20 Pain Scale Pain Intensity 0 - Physical Exam General Appearance: mild distress, alert, anxiety Eye Exam: PERRL/EOMI, eyes nml inspection Ears, Nose, Throat Exam: normal ENT inspection, moist mucous membranes Neck Exam: normal inspection, non-tender, supple, full range of motion Respiratory Exam: normal breath sounds, chest tenderness, lungs clear, airway intact, No respiratory distress Cardiovascular Exam: regular rate/rhythm, normal heart sounds, normal peripheral pulses Gastrointestinal/Abdomen Exam: soft, normal bowel sounds, No tenderness Pelvic Exam: not done Rectal Exam: not done Back Exam: normal inspection, normal range of motion, No CVA tenderness, No vertebral tenderness Extremity Exam: normal inspection, normal range of motion, pelvis stable Neurologic Exam: alert, oriented x 3, cooperative, 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 I compared the current EKG with that EKG that is dated 10/13/2019. There are no changes when comparing the 2 EKGs.) Ordered Tests: Active Orders 24 hr Category Date Time Status Molasses Preparer STAT Care 11/26/19 16:29 Active EKG-ER Only STAT Care 11/26/19 16:29 Active IV Insertion STAT Care 11/26/19 16:29 Active Pulse Oximetry (ED) STAT Care 11/26/19 16:29 Active CHEST WITH CONTRAST [CT] Stat Exams 11/26/19 17:40 Taken CBC W DIFF Stat Lab 11/26/19 16:30 Completed CMP Stat Lab 11/26/19 16:30 Completed D-DIMER QUANTITATIVE Stat Lab 11/26/19 16:30 Completed NT PRO BNP Stat Lab 11/26/19 16:30 Completed PROTIME WITH INR Stat Lab 11/26/19 16:30 Completed TROPONIN Q3H Lab 11/26/19 16:30 Completed TROPONIN Q3H Lab 11/26/19 19:25 Completed TROPONIN Q3H Lab 11/26/19 22:30 Ordered TROPONIN Q3H Lab 11/27/19 01:30 Ordered TROPONIN Q3H Lab 11/27/19 04:30 Ordered UA W/RFX UR CULTURE Stat Lab 11/26/19 16:58 Completed Medication Summary Discontinued Medications Generic Name Dose Route Start Last Admin Trade Name Freq PRN Reason Stop Dose Admin Aspirin 324 mg 11/26/19 16:29 11/26/19 16:34 Baby Aspirin 81 Mg Chew PO 11/26/19 16:30 324 mg STAT ONE Administration Sodium Chloride 500 mls @ 500 mls/hr 11/26/19 17:41 11/26/19 19:04 Sodium Chloride 0.9% 500 Ml IV 11/26/19 18:40 Infused .Q1H ONE Infusion Sodium Chloride Confirm 11/26/19 17:47 Sodium Chloride 0.9% 500 Ml Administered 11/26/19 17:48 Dose 500 mls @ ud IV .STK-MED ONE Lorazepam 1 mg 11/26/19 16:39 11/26/19 16:43 Ativan 2 Mg/1 Ml Vial IV 11/26/19 16:40 1 mg STAT ONE Administration Lorazepam Confirm 11/26/19 16:43 Ativan 2 Mg/1 Ml Vial Administered 11/26/19 16:44 Dose 2 mg .ROUTE .STK-MED ONE Nitroglycerin 0.4 mg 11/26/19 16:29 11/26/19 16:35 Nitrostat 0.4 Mg (Ed) SL 11/26/19 16:30 0.4 mg STAT ONE Administration Lab/Rad Data: Laboratory Result Diagrams 11/26/19 16:30 11/26/19 16:30 Laboratory Results 11/26/19 11/26/19 11/26/19 Range/Units 19:25 16:58 16:30 WBC (4.0-10.5) K/mm3 RBC (4.1-5.4) M/mm3 Hgb (12.0-16.0) gm/dl Hct (35-47) % MCV (78-100) fl MCH (26-32) pg MCHC (32-36) g/dl RDW (11.5-14.0) % Plt Count (150-450) K/mm3 MPV (7.5-11.0) fl Gran % (36.0-66.0) % Eos # (Auto) (0-0.5) Absolute Lymphs (auto) (1.0-4.6) Absolute Monos (auto) (0.0-1.3) Lymphocytes % (24.0-44.0) % Monocytes % (0.0-12.0) % Eosinophils % (0.00-5.0) % Basophils % (0.0-0.4) % Absolute Granulocytes (1.4-6.9) Basophils # (0-0.4) PT (9.95-12.35) SECONDS INR (0.8-3.0) D-Dimer (215-500) ng/mL Sodium (137-145) mmol/L Potassium (3.5-5.1) mmol/L Chloride (98-107) mmol/L Carbon Dioxide (22-30) mmol/L Anion Gap (5-15) MEQ/L BUN (7-17) mg/dL Creatinine (0.52-1.04) mg/dL Estimated GFR ML/MIN Glucose (74-106) mg/dL Calcium (8.4-10.2) mg/dL Total Bilirubin (0.2-1.3) mg/dL AST (14-36) U/L ALT (0-35) U/L Alkaline Phosphatase (38-126) U/L Troponin I < 0.012 < 0.012 (0.000-0.034) ng/mL NT-Pro-B Natriuret Pep (0-900) pg/mL Serum Total Protein (6.3-8.2) g/dL Albumin (3.5-5.0) g/dL Urine Color YELLOW (YELLOW) Urine Appearance CLEAR (CLEAR) Urine pH 7.0 (5-6) Ur Specific [place] 1.006 (1.005-1.025) Urine Protein NEGATIVE (Negative) Urine Ketones NEGATIVE (NEGATIVE) Urine Blood NEGATIVE (0-5) Anshul/ul Urine Nitrite NEGATIVE (NEGATIVE) Urine Bilirubin NEGATIVE (NEGATIVE) Urine Urobilinogen NEGATIVE (0-1) mg/dL Ur Leukocyte Esterase SMALL (NEGATIVE) Urine WBC (Auto) 6-10 (0-5) /HPF Urine RBC (Auto) NONE (0-2) /HPF U Epithel Cells (Auto) NONE (FEW) /HPF Urine Bacteria (Auto) NONE (NEGATIVE) /HPF Urine Culture Reflexed NO (NO) Urine Glucose NEGATIVE (NEGATIVE) mg/dL 11/26/19 11/26/19 11/26/19 Range/Units 16:30 16:30 16:30 WBC 8.9 (4.0-10.5) K/mm3 RBC 5.08 (4.1-5.4) M/mm3 Hgb 14.9 (12.0-16.0) gm/dl Hct 45.1 (35-47) % MCV 88.8 (78-100) fl MCH 29.3 (26-32) pg MCHC 33.0 (32-36) g/dl RDW 15.2 H (11.5-14.0) % Plt Count 254 (150-450) K/mm3 MPV 11.0 (7.5-11.0) fl Gran % 59.7 (36.0-66.0) % Eos # (Auto) 0.21 (0-0.5) Absolute Lymphs (auto) 2.60 (1.0-4.6) Absolute Monos (auto) 0.75 (0.0-1.3) Lymphocytes % 29.2 (24.0-44.0) % Monocytes % 8.4 (0.0-12.0) % Eosinophils % 2.4 (0.00-5.0) % Basophils % 0.3 (0.0-0.4) % Absolute Granulocytes 5.30 (1.4-6.9) Basophils # 0.03 (0-0.4) PT 13.8 H (9.95-12.35) SECONDS INR 1.22 (0.8-3.0) D-Dimer 591 H* (215-500) ng/mL Sodium 141 (137-145) mmol/L Potassium 3.8 (3.5-5.1) mmol/L Chloride 105 (98-107) mmol/L Carbon Dioxide 25 (22-30) mmol/L Anion Gap 14.5 (5-15) MEQ/L BUN 15 (7-17) mg/dL Creatinine 0.86 (0.52-1.04) mg/dL Estimated GFR > 60.0 ML/MIN Glucose 106 (74-106) mg/dL Calcium 9.6 (8.4-10.2) mg/dL Total Bilirubin 0.90 (0.2-1.3) mg/dL AST 31 (14-36) U/L ALT 27 (0-35) U/L Alkaline Phosphatase 124 (38-126) U/L Troponin I (0.000-0.034) ng/mL NT-Pro-B Natriuret Pep 128 (0-900) pg/mL Serum Total Protein 8.2 (6.3-8.2) g/dL Albumin 4.5 (3.5-5.0) g/dL Urine Color (YELLOW) Urine Appearance (CLEAR) Urine pH (5-6) Ur Specific [place] (1.005-1.025) Urine Protein (Negative) Urine Ketones (NEGATIVE) Urine Blood (0-5) Anshul/ul Urine Nitrite (NEGATIVE) Urine Bilirubin (NEGATIVE) Urine Urobilinogen (0-1) mg/dL Ur Leukocyte Esterase (NEGATIVE) Urine WBC (Auto) (0-5) /HPF Urine RBC (Auto) (0-2) /HPF U Epithel Cells (Auto) (FEW) /HPF Urine Bacteria (Auto) (NEGATIVE) /HPF Urine Culture Reflexed (NO) Urine Glucose (NEGATIVE) mg/dL - Progress Progress: improved, re-examined Air Movement: good Progress Note: 11/26/19 18:55 CAT scan of the chest with contrast shows negative pulmonary emboli present. There is no acute or new acute findings. 11/26/19 19:53 Patient no longer has chest pain. Patient was very anxious when she came into the hospital. Without providing the patient with any primary antihypertensive medication but only a single nitroglycerin and Ativan, the patient's heart rate and blood pressure dropped to normal range. Patient's CAT scan does not show any pulmonary emboli. If the patient's second troponin is within normal limits she will be discharged to home. Blood Culture(s) Obtained: No Antibiotics given: No Counseled pt/family regarding: lab results, diagnosis, need for follow-up, rad results - Departure Departure Disposition: Home Clinical Impression: Hypertension, Anxiety Condition: Stable Critical Care Time: No Referrals: DEDE MCDONOUGH NP [Primary Care Provider] - Additional Instructions: Take your medication as prescribed. Follow-up with your primary care physician and your rn mental health for further management.
[2019-11-26] MEDS ORDERED: Ativan 2 MG/1 ML VIAL IV ONE (16:39)
[2019-11-26 16:41] LABS: BASOPHIL % 0.3 % (0.0-0.4); Basophil (Absolute #) 0.03 (0-0.4); Eosinophil % 2.4 % (0.00-5.0); Eosinophil (Absolute #) 0.21 (0-0.5); Hematocrit 45.1 % (35-47); Hemoglobin 14.9 gm/dl (12.0-16.0); Lymphocytes % 29.2 % (24.0-44.0); Mean Cell Volume 88.8 fl (78-100); Mean Corpuscular Hemoglobin 29.3 pg (26-32); Monocyte (Absolute #) 0.75 (0.0-1.3); Monocytes % 8.4 % (0.0-12.0); Neutrophil % 59.7 % (36.0-66.0); Platelet Count 254 K/mm3 (150-450); Red Blood Count 5.08 M/mm3 (4.1-5.4); Red Cell Distribution Width 15.2 % (11.5-14.0); White Blood Count 8.9 K/mm3 (4.0-10.5)
[2019-11-26] MEDS ORDERED: Ativan 2 MG/1 ML VIAL ONE (16:43)
[2019-11-26 17:07] LABS: ALBUMIN 4.5 g/dL (3.5-5.0); ALKALINE PHOSPHATASE 124 U/L (38-126); ANION GAP 14.5 MEQ/L (5-15); BLOOD UREA NITROGEN 15 mg/dL (7-17); CHLORIDE 105 mmol/L (98-107); Calcium 9.6 mg/dL (8.4-10.2); Carbon Dioxide 25 mmol/L (22-30); Creatinine 1 0.86 mg/dL (0.52-1.04); Glucose 106 mg/dL (74-106); NT PRO BNP 128 pg/mL (0-900); Potassium 3.8 mmol/L (3.5-5.1); SGOT/AST 31 U/L (14-36); SGPT/ALT 27 U/L (0-35); SODIUM 141 mmol/L (137-145); Total Protein 8.2 g/dL (6.3-8.2)
[2019-11-26 17:11] LABS: INR 1.22 (0.8-3.0); PROTIME 13.8 SECONDS (9.95-12.35)
[2019-11-26 17:16] LABS: Appearance CLEAR (CLEAR); Bilirubin NEGATIVE (NEGATIVE); Blood NEGATIVE Ery/ul (0-5); Glucose NEGATIVE (NEGATIVE); Ketones NEGATIVE (NEGATIVE); Leukocyte Esterase SMALL (NEGATIVE); Nitrite NEGATIVE (NEGATIVE); Protein,Urine Dip NEGATIVE (Negative); Specific Gravity 1.006 (1.005-1.025); Urobilinogen NEGATIVE mg/dL (0-1)
[2019-11-26] MEDS ORDERED: Sodium Chloride 0.9% 500 ML 500 ML IV ONE ×2 (17:41→17:47)
[2019-11-26 20:10] VITALS: BP 118/77; PULSE 81; O2SAT 96
--- NOTE | 2019-11-27 08:07 | XRAY ---
Indication: Chest pain. High blood pressure. Elevated d-dimer. Multiple contiguous axial images obtained through the chest using 80 cc Isovue 370 contrast and PE protocol. Comparison: October 13, 2019. There is satisfactory opacification of the pulmonary arteries to include the lobar and segmental branches. Previous right upper lobe pulmonary embolus resolved. No filling defect or pulmonary embolus. Heart is not enlarged. Aorta is normal in course and caliber. No pathologic mediastinal/hilar lymphadenopathy. Stable small hiatal hernia. Lungs are inflated without suspicious pulmonary mass/nodule, infiltrate, or effusion. Bony thorax intact again with mild degenerative changes throughout the spine. Limited upper abdomen again demonstrates fatty liver and left renal cysts. Impression: 1. Negative pulmonary embolus. No new or acute cardiopulmonary abnormalities. 2. Stable small hiatal hernia, fatty liver, and left renal cysts.
== END 2019-11-26 20:20 | disposition home or self-care (01) ==
LOC: ED 16:19
DX: I10 Essential (primary) hypertension (principal); F41.9 Anxiety disorder, unspecified
CPT/HCPCS: 36000; 36415; 71260; 80053; 81001; 83880; 84484; 85025; 85379; 85610; 93005; 93041; 94760; 96360; 96374; 99284; J2060; A9270-GY

== ENCOUNTER 2019-12-25 15:04 | Observation (INO) | payer OTHER ==
[2019-12-25] MEDS ORDERED: MORPHINE SULFATE 4 MG INJ IV ONE ×2 (15:54→19:11)
[2019-12-25] MEDS ORDERED: ZOFRAN ODT 4 MG PO ONE (15:54)
[2019-12-25] MEDS ORDERED: BABY ASPIRIN 81 MG CHEW PO ONE (15:55)
--- NOTE | 2019-12-25 15:59 | ERPHSYRPT ---
- History of Present Illness Time Seen by Provider: 12/25/19 15:35 Source: patient Exam Limitations: no limitations Patient Subjective Stated Complaint: pt here for pain to chest off and on for a couple days and pain under left breast that radiates to abd , with nausea, sw eating, sob, lightheadness off and on, she tool and tramadol and states that helped her pain Triage Nursing Assessment: pt alert, walked in, face mask in place, anxious,resp easy, skin w/d/p. moves all ext well, no edema Physician History: 59 years old female with history of hypertension, coronary artery disease, congestive heart failure, GERD presented in the ER with chief complaint of substernal and epigastric pain along with generalized abdominal pain since yesterday. Patient reports she was returning back from [place] and on the way back home 4 days ago started to have substernal chest pain with radiation to left shoulder/neck, had to take 2 nitros with some relief. She did have mild shortness of breath with that. Today she is having mild chest discomfort in the lower chest but more epigastric pain with radiation all over her abdomen, moderate intensity, sharp in nature without any significant aggravating or relieving factors, associated with nausea but no vomiting. Denies any diarrhea, fever or chills. She took tramadol with partial relief of abdominal pain but still have chest discomfort. Severity: moderate Associated Symptoms: nausea, abdominal pain, chest pain, No vomiting, No shortness of breath, No cough, No chills Allergies/Adverse Reactions: hydromorphone [From Dilaudid] Adverse Reaction (Mild, Verified 10/29/19 16:54) Vomiting Home Medications: PANTOPRAZOLE 40 mg Tablet [Protonix 40MG Tablet] 40 mg PO DAILY 10/13/19 [History] Apixaban [Eliquis] 10 mg PO BID 10/29/19 [History] Losartan Potassium [Cozaar] 100 mg PO DAILY 10/29/19 [History] Amlodipine Besylate 5 mg [Norvasc 5 mg] 5 mg PO DAILY 11/26/19 [History] Triamterene/Hydrochlorothiazid [Triamterene-Hctz 37.5-25 mg Tb] 1 each PO DAILY 11/26/19 [History] Docusate Sodium [Stool Softener] 100 mg PO DAILY 12/25/19 [History] Nitroglycerin 0.4 mg Tablet [Nitrostat 0.4 MG Tablet] 0.4 mg SL PRN 12/25/19 [History] Sucralfate 1 gm [Carafate 1 GM] 1 g PO BID 12/25/19 [History] Tramadol HCl 50 mg [Ultram 50 mg] 50 mg PO BIDPRN PRN 12/25/19 [History] Hx Tetanus, Diphtheria Vaccination/Date Given: No Hx Influenza Vaccination/Date Given: No Hx Pneumococcal Vaccination/Date Given: No Immunizations Up to Date: Yes Travel Risk - International Travel Have you traveled outside of the country in past 3 weeks: No - Coronavirus Screening Are you exhibiting any of the following symptoms?: No Close contact with a COVID-19 positive Pt in past 14-21 Days: No - Review of Systems Constitutional: No Symptoms Eyes: No Symptoms Ears, Nose, & Throat: No Symptoms Respiratory: No Symptoms Cardiac: Chest Pain Abdominal/Gastrointestinal: Abdominal Pain, Nausea Genitourinary Symptoms: No Symptoms Musculoskeletal: No Symptoms Skin: No Symptoms Neurological: No Symptoms Psychological: No Symptoms Endocrine: No Symptoms Hematologic/Lymphatic: No Symptoms Immunological/Allergic: Pollen Allergy - Past Medical History Pertinent Past Medical History: Yes Neurological History: No Pertinent History ENT History: No Pertinent History Cardiac History: Hypertension, Myocardial Infarction (ME) Respiratory History: No Pertinent History Endocrine Medical History: Hypoglycemia Musculoskeletal History: No Pertinent History GI Medical History: Ulcer History: No Pertinent History Psycho-Social History: Anxiety Female Reproductive Disorders: No Pertinent History Other Medical History: ME and heart cath two weeks ago - Past Surgical History Past Surgical History: Yes Neuro Surgical History: No Pertinent History Cardiac: Cardiac Catheterization Respiratory: No Pertinent History Gastrointestinal: Appendectomy Genitourinary: No Pertinent History Musculoskeletal: No Pertinent History Female Surgical History: Hysterectomy - Social History Smoking Status: Never smoker Exposure to second hand smoke: No Drug Use: none Patient Lives Alone: Yes - Female History Hx Last Menstrual Period: post Hx Now: No - Nursing Vital Signs Nursing Vital Signs: Initial Vital Signs Temperature 97.4 F 12/25/19 15:05 Pulse Rate 56 L 12/25/19 15:05 Respiratory Rate 22 12/25/19 15:05 Blood Pressure 127/58 12/25/19 15:05 O2 Sat by Pulse Oximetry 95 12/25/19 15:05 Pain Scale Pain Intensity 4 - Physical Exam General Appearance: no apparent distress Eye Exam: PERRL/EOMI, eyes nml inspection Ears, Nose, Throat Exam: normal ENT inspection, pharynx normal Neck Exam: normal inspection, supple, full range of motion Respiratory Exam: normal breath sounds, lungs clear Cardiovascular Exam: regular rate/rhythm, normal heart sounds Gastrointestinal/Abdomen Exam: soft, normal bowel sounds, tenderness (Mild generalized) Back Exam: normal inspection, normal range of motion Extremity Exam: normal inspection, normal range of motion Neurologic Exam: alert, oriented x 3, cooperative Skin Exam: normal color SpO2 Interpretation: normal SpO2: 95 O2 Delivery: Room Air - Course EKG Interpreted by Me: RATE ([id number]), Sinus Rhythm, NORMAL AXIS, NORMAL INTERVALS, NORMAL QRS Ordered Tests: Active Orders 24 hr Category Date Time Status [employer] STAT Care 12/25/19 16:54 Active EKG-ER Only STAT Care 12/25/19 15:54 Active IV Insertion STAT Care 12/25/19 15:54 Active NPO (ED) STAT Care 12/25/19 15:54 Active ABDOMEN AND PELVIS W CONTRAST [CT] Stat Exams 12/25/19 17:27 Taken CHEST 1 VIEW (PORTABLE) Stat Exams 12/25/19 15:54 Completed CBC W DIFF Stat Lab 12/25/19 14:29 Completed CMP Stat Lab 12/25/19 14:29 Completed D-DIMER QUANTITATIVE Stat Lab 12/25/19 16:53 Completed LIPASE Stat Lab 12/25/19 14:29 Completed TROPONIN Q3H Lab 12/25/19 14:29 Completed TROPONIN Q3H Lab 12/25/19 19:00 Completed TROPONIN Q3H Lab 12/25/19 22:00 Ordered TROPONIN Q3H Lab 12/26/19 01:00 Ordered TROPONIN Q3H Lab 12/26/19 04:00 Ordered UA W/RFX UR CULTURE Stat Lab 12/25/19 19:00 Completed Transfer Order Routine Transfer 12/25/19 Ordered Medication Summary Discontinued Medications Generic Name Dose Route Start Last Admin Trade Name Freq PRN Reason Stop Dose Admin Aspirin 324 mg 12/25/19 15:55 12/25/19 16:56 Baby Aspirin 81 Mg Chew PO 12/25/19 15:56 324 mg STAT ONE Administration Aspirin Confirm 12/25/19 16:47 Baby Aspirin 81 Mg Chew Administered 12/25/19 16:48 Dose 324 mg .ROUTE .STK-MED ONE Morphine Sulfate 4 mg 12/25/19 15:54 12/25/19 16:57 Morphine Sulfate 4 Mg Inj IV 12/25/19 15:55 4 mg STAT ONE Administration Morphine Sulfate Confirm 12/25/19 16:47 Morphine Sulfate 4 Mg Inj Administered 12/25/19 16:48 Dose 4 mg .ROUTE .STK-MED ONE Morphine Sulfate 4 mg 12/25/19 19:11 12/25/19 19:12 Morphine Sulfate 4 Mg Inj IV 12/25/19 19:12 4 mg STAT ONE Administration Morphine Sulfate Confirm 12/25/19 19:11 Morphine Sulfate 4 Mg Inj Administered 12/25/19 19:12 Dose 4 mg .ROUTE .STK-MED ONE Ondansetron HCl 4 mg 12/25/19 15:54 12/25/19 16:44 Zofran Odt 4 Mg PO 12/25/19 15:55 Not Given STAT ONE Ondansetron HCl 4 mg 12/25/19 16:45 12/25/19 16:56 Zofran 4 Mg/2 Ml Vial IV 12/25/19 16:46 4 mg STAT ONE Administration Ondansetron HCl Confirm 12/25/19 16:47 Zofran 4 Mg/2 Ml Vial Administered 12/25/19 16:48 Dose 4 mg .ROUTE .STK-MED ONE Ondansetron HCl 4 mg 12/25/19 19:10 12/25/19 19:12 Zofran 4 Mg/2 Ml Vial IV 12/25/19 19:11 4 mg STAT ONE Administration Ondansetron HCl Confirm 12/25/19 19:10 Zofran 4 Mg/2 Ml Vial Administered 12/25/19 19:11 Dose 4 mg .ROUTE .STK-MED ONE Lab/Rad Data: Laboratory Result Diagrams 12/25/19 14:29 12/25/19 14:29 Laboratory Results 12/25/19 12/25/19 12/25/19 Range/Units 19:00 19:00 16:53 WBC (4.0-10.5) K/mm3 RBC (4.1-5.4) M/mm3 Hgb (12.0-16.0) gm/dl Hct (35-47) % MCV (78-100) fl MCH (26-32) pg MCHC (32-36) g/dl RDW (11.5-14.0) % Plt Count (150-450) K/mm3 MPV (7.5-11.0) fl Gran % (36.0-66.0) % Eos # (Auto) (0-0.5) Absolute Lymphs (auto) (1.0-4.6) Absolute Monos (auto) (0.0-1.3) Lymphocytes % (24.0-44.0) % Monocytes % (0.0-12.0) % Eosinophils % (0.00-5.0) % Basophils % (0.0-0.4) % Absolute Granulocytes (1.4-6.9) Basophils # (0-0.4) D-Dimer 396 (215-500) ng/mL Sodium (137-145) mmol/L Potassium (3.5-5.1) mmol/L Chloride (98-107) mmol/L Carbon Dioxide (22-30) mmol/L Anion Gap (5-15) MEQ/L BUN (7-17) mg/dL Creatinine (0.52-1.04) mg/dL Estimated GFR ML/MIN Glucose (74-106) mg/dL Calcium (8.4-10.2) mg/dL Total Bilirubin (0.2-1.3) mg/dL AST (14-36) U/L ALT (0-35) U/L Alkaline Phosphatase (38-126) U/L Troponin I < 0.012 (0.000-0.034) ng/mL Serum Total Protein (6.3-8.2) g/dL Albumin (3.5-5.0) g/dL Lipase (23-300) U/L Urine Color YELLOW (YELLOW) Urine Appearance SLIGHTLY CLOUDY (CLEAR) Urine pH 6.0 (5-6) Ur Specific [place] 1.036 (1.005-1.025) Urine Protein NEGATIVE (Negative) Urine Ketones NEGATIVE (NEGATIVE) Urine Blood NEGATIVE (0-5) Anshul/ul Urine Nitrite NEGATIVE (NEGATIVE) Urine Bilirubin NEGATIVE (NEGATIVE) Urine Urobilinogen NEGATIVE (0-1) mg/dL Ur Leukocyte Esterase TRACE (NEGATIVE) Urine WBC (Auto) 0-2 (0-5) /HPF Urine RBC (Auto) NONE SEEN (0-2) /HPF U Epithel Cells (Auto) RARE (FEW) /HPF Urine Bacteria (Auto) NONE SEEN (NEGATIVE) /HPF Urine Mucus (Auto) SLIGHT (NEGATIVE) /HPF Urine Culture Reflexed NO (NO) Urine Glucose NEGATIVE (NEGATIVE) mg/dL 12/25/19 12/25/19 12/25/19 Range/Units 14:29 14:29 14:29 WBC 9.1 (4.0-10.5) K/mm3 RBC 4.45 (4.1-5.4) M/mm3 Hgb 13.3 (12.0-16.0) gm/dl Hct 40.7 (35-47) % MCV 91.5 (78-100) fl MCH 29.9 (26-32) pg MCHC 32.7 (32-36) g/dl RDW 15.0 H (11.5-14.0) % Plt Count 230 (150-450) K/mm3 MPV 11.8 H (7.5-11.0) fl Gran % 60.5 (36.0-66.0) % Eos # (Auto) 0.22 (0-0.5) Absolute Lymphs (auto) 2.52 (1.0-4.6) Absolute Monos (auto) 0.84 (0.0-1.3) Lymphocytes % 27.7 (24.0-44.0) % Monocytes % 9.2 (0.0-12.0) % Eosinophils % 2.4 (0.00-5.0) % Basophils % 0.2 (0.0-0.4) % Absolute Granulocytes 5.50 (1.4-6.9) Basophils # 0.02 (0-0.4) D-Dimer (215-500) ng/mL Sodium 141 (137-145) mmol/L Potassium 4.2 (3.5-5.1) mmol/L Chloride 105 (98-107) mmol/L Carbon Dioxide 28 (22-30) mmol/L Anion Gap 12.1 (5-15) MEQ/L BUN 25 H (7-17) mg/dL Creatinine 0.92 (0.52-1.04) mg/dL Estimated GFR > 60.0 ML/MIN Glucose 97 (74-106) mg/dL Calcium 9.5 (8.4-10.2) mg/dL Total Bilirubin 0.40 (0.2-1.3) mg/dL AST 27 (14-36) U/L ALT 25 (0-35) U/L Alkaline Phosphatase 131 H (38-126) U/L Troponin I < 0.012 (0.000-0.034) ng/mL Serum Total Protein 7.8 (6.3-8.2) g/dL Albumin 4.2 (3.5-5.0) g/dL Lipase 112 (23-300) U/L Urine Color (YELLOW) Urine Appearance (CLEAR) Urine pH (5-6) Ur Specific [place] (1.005-1.025) Urine Protein (Negative) Urine Ketones (NEGATIVE) Urine Blood (0-5) Anshul/ul Urine Nitrite (NEGATIVE) Urine Bilirubin (NEGATIVE) Urine Urobilinogen (0-1) mg/dL Ur Leukocyte Esterase (NEGATIVE) Urine WBC (Auto) (0-5) /HPF Urine RBC (Auto) (0-2) /HPF U Epithel Cells (Auto) (FEW) /HPF Urine Bacteria (Auto) (NEGATIVE) /HPF Urine Mucus (Auto) (NEGATIVE) /HPF Urine Culture Reflexed (NO) Urine Glucose (NEGATIVE) mg/dL - Progress Progress: improved, pain not gone completely, re-examined Progress Note: 12/25/19 59 years old is evaluated for chest and abdominal pain. She is given symptomatic treatment for pain along with aspirin. EKG showed normal sinus rhythm with no acute ST or T T wave changes suggesting acute ischemia. Has negative initial troponins. Chest x-ray negative for any acute cardiopulmonary findings. She has a normal white count, grossly unremarkable chemistries. I have obtained CT abdomen pelvis which did not show any acute findings. Patient does have multiple risk factor for coronary artery disease, discussed with Dr. Minor and patient is being admitted for observation. Discussed with : Sergio Will see patient in: hospital (observation) Counseled pt/family regarding: lab results, diagnosis, rad results - Departure Departure Disposition: Observation Clinical Impression: Chest pain, rule out acute myocardial infarction, Abdominal pain in female patient Condition: Stable Critical Care Time: No Referrals: DEDE MCDONOUGH, [employer] [Primary Care Provider] -
[2019-12-25 16:14] LABS: BASOPHIL % 0.2 % (0.0-0.4); Basophil (Absolute #) 0.02 (0-0.4); Eosinophil % 2.4 % (0.00-5.0); Eosinophil (Absolute #) 0.22 (0-0.5); Hematocrit 40.7 % (35-47); Hemoglobin 13.3 gm/dl (12.0-16.0); Lymphocyte (Absolute #) 2.52 (1.0-4.6); Lymphocytes % 27.7 % (24.0-44.0); Mean Cell Volume 91.5 fl (78-100); Mean Corpuscular Hemoglobin 29.9 pg (26-32); Mean Corpuscular Hgb Concent. 32.7 g/dl (32-36); Mean Platelet Volume 11.8 fl (7.5-11.0); Monocyte (Absolute #) 0.84 (0.0-1.3); Monocytes % 9.2 % (0.0-12.0); Neutrophil % 60.5 % (36.0-66.0); Platelet Count 230 K/mm3 (150-450); Red Blood Count 4.45 M/mm3 (4.1-5.4); White Blood Count 9.1 K/mm3 (4.0-10.5)
[2019-12-25 16:29] LABS: ALBUMIN 4.2 g/dL (3.5-5.0); ALKALINE PHOSPHATASE 131 U/L (38-126); ANION GAP 12.1 MEQ/L (5-15); BLOOD UREA NITROGEN 25 mg/dL (7-17); CHLORIDE 105 mmol/L (98-107); Calcium 9.5 mg/dL (8.4-10.2); Carbon Dioxide 28 mmol/L (22-30); Creatinine 1 0.92 mg/dL (0.52-1.04); EST GLOMERULAR FILTRATION RATE > 60.0 ML/MIN; Glucose 97 mg/dL (74-106); LIPASE 112 U/L (23-300); Potassium 4.2 mmol/L (3.5-5.1); SGOT/AST 27 U/L (14-36); SGPT/ALT 25 U/L (0-35); SODIUM 141 mmol/L (137-145); Total Protein 7.8 g/dL (6.3-8.2)
[2019-12-25] MEDS ORDERED: Zofran 4 MG/2 ML VIAL IV ONE ×2 (16:45→19:10)
[2019-12-25] MEDS ORDERED: BABY ASPIRIN 81 MG CHEW ONE (16:47)
[2019-12-25] MEDS ORDERED: Zofran 4 MG/2 ML VIAL ONE ×2 (16:47→19:10)
[2019-12-25] MEDS ORDERED: MORPHINE SULFATE 4 MG INJ ONE ×2 (16:47→19:11)
--- NOTE | 2019-12-25 17:05 | XRAY ---
Indication: Chest pain. Comparison: October 29, 2019. Portable chest again demonstrates normal heart and lungs. Bony thorax intact again with mild osteopenia and degenerative changes. No new/acute findings.
[2019-12-25 19:05] LABS: Appearance SLIGHTLY CLOUDY (CLEAR); Bilirubin NEGATIVE (NEGATIVE); Blood NEGATIVE Ery/ul (0-5); Epithelial Cells RARE /HPF (FEW); Glucose NEGATIVE (NEGATIVE); Ketones NEGATIVE (NEGATIVE); Leukocyte Esterase TRACE (NEGATIVE); Mucus SLIGHT /HPF (NEGATIVE); Nitrite NEGATIVE (NEGATIVE); Protein,Urine Dip NEGATIVE (Negative); Specific Gravity 1.036 (1.005-1.025); Urobilinogen NEGATIVE mg/dL (0-1); WBC 0-2 /HPF (0-5)
[2019-12-25 19:06] LABS: Bacteria NONE SEEN /HPF (NEGATIVE); RBC NONE SEEN /HPF (0-2)
[2019-12-25] MEDS ORDERED: Zofran 4 MG/2 ML VIAL IV PRN (20:37)
[2019-12-25] MEDS ORDERED: DUONEB 0.5-3 MG/3 ml Neb IH PRN (20:37)
[2019-12-25] MEDS ORDERED: TYLENOL 325 MG PO PRN (20:37)
[2019-12-25] MEDS ORDERED: HUMALOG SQ PRN (20:37)
[2019-12-25] MEDS ORDERED: MORPHINE SULFATE 2 MG INJ IV PRN (20:37)
--- NOTE | 2019-12-25 21:01 | XRAY ---
Indication: Abdomen pain and nausea. Multiple contiguous axial images obtained through the abdomen and pelvis using 80 cc Isovue 370 contrast. Comparison: October 29, 2019. Lung bases demonstrates minimal dependent atelectasis. No infiltrate or effusion. Heart is not enlarged. Stable small hiatal hernia. Noncontrasted stomach and bowel loops appear nonobstructed. Stable scattered colonic diverticulosis, fatty liver, bilateral renal parapelvic cysts, appendectomy, and hysterectomy. No free fluid/air. Remaining liver, gallbladder, pancreas, spleen, adrenal glands, kidneys, ureters, and bladder appear unremarkable. Stable mild aortoiliac calcifications. No AAA or pathological retroperitoneal lymphadenopathy. Osseous structures intact again with mild degenerative changes throughout the thoracolumbar spine. Impression: 1. Stable colonic diverticulosis, hiatal hernia, fatty liver, and bilateral renal cysts. 2. Remaining CT abdomen/pelvis with contrast exam is again negative. Comment: Preliminary interpretation was made by [facility]. No critical discrepancy.
[2019-12-25] MEDS: Pepcid 20 MG VIAL IV SCH (22:03)
[2019-12-26 04:23] LABS: Absolute Neutrophil Ct (ANC) 6.24 (1.4-6.9); BASOPHIL % 0.2 % (0.0-0.4); Basophil (Absolute #) 0.02 (0-0.4); Eosinophil % 0.6 % (0.00-5.0); Eosinophil (Absolute #) 0.05 (0-0.5); Hematocrit 40.1 % (35-47); Lymphocyte (Absolute #) 1.55 (1.0-4.6); Lymphocytes % 18.5 % (24.0-44.0); Mean Cell Volume 91.8 fl (78-100); Mean Corpuscular Hemoglobin 29.7 pg (26-32); Mean Corpuscular Hgb Concent. 32.4 g/dl (32-36); Mean Platelet Volume 10.9 fl (7.5-11.0); Monocyte (Absolute #) 0.51 (0.0-1.3); Monocytes % 6.1 % (0.0-12.0); Neutrophil % 74.6 % (36.0-66.0); Platelet Count 212 K/mm3 (150-450); Red Blood Count 4.37 M/mm3 (4.1-5.4); Red Cell Distribution Width 14.9 % (11.5-14.0); White Blood Count 8.4 K/mm3 (4.0-10.5)
[2019-12-26 04:44] LABS: ALBUMIN 3.7 g/dL (3.5-5.0); ALKALINE PHOSPHATASE 84 U/L (38-126); ANION GAP 9.8 MEQ/L (5-15); BLOOD UREA NITROGEN 25 mg/dL (7-17); CHLORIDE 105 mmol/L (98-107); Calcium 9.1 mg/dL (8.4-10.2); Carbon Dioxide 27 mmol/L (22-30); Creatinine 1 0.92 mg/dL (0.52-1.04); EST GLOMERULAR FILTRATION RATE > 60.0 ML/MIN; Glucose 128 mg/dL (74-106); Potassium 4.7 mmol/L (3.5-5.1); SGOT/AST 25 U/L (14-36); SGPT/ALT 23 U/L (0-35); SODIUM 137 mmol/L (137-145)
[2019-12-26] MEDS: Sodium Chloride 0.9% 10 ML FLUSH Syringe IV SCH ×2 (04:53→10:37)
[2019-12-26 08:12] VITALS: O2SAT 97
[2019-12-26] MEDS: Pepcid 20 MG VIAL IV SCH (10:32)
[2019-12-26] MEDS ORDERED: Sodium Chloride 0.9% 1000 ML 1,000 ML IV STA (11:34)
[2019-12-26] MEDS ORDERED: Carafate SUSPENSION 1000 MG/10 ML PO SCH (11:35)
[2019-12-26 12:23] VITALS: BP 129/69; PULSE 62
[2019-12-26] MEDS ORDERED: PROTONIX 40 MG IV IV ONE (12:47)
[2019-12-26] MEDS ORDERED: ULTRAM 50 MG PO PRN (13:05)
--- NOTE | 2019-12-26 14:21 | PCM.SSS ---
History of Present Illness - Chief Complaint Chief Complaint: Chest pain, abdominal pain History of Present Illness: is a 59 year old female. Medications & Allergies Home Medications: Home Medication List PANTOPRAZOLE 40 mg Tablet [Protonix 40MG Tablet] 40 mg PO DAILY 10/13/19 [History Confirmed 12/25/19] Apixaban [Eliquis] 10 mg PO BID 10/29/19 [History Confirmed 12/25/19] Losartan Potassium [Cozaar] 100 mg PO DAILY 10/29/19 [History Confirmed 12/25/19] Amlodipine Besylate 5 mg [Norvasc 5 mg] 5 mg PO DAILY 11/26/19 [History Confirmed 12/25/19] Triamterene/Hydrochlorothiazid [Triamterene-Hctz 37.5-25 mg Tb] 1 each PO DAILY 11/26/19 [History Confirmed 12/25/19] Alprazolam 1 mg [Xanax 1 mg] 1 mg PO Q4H PRN PRN 12/25/19 [History Confirmed 12/25/19] Docusate Sodium [Stool Softener] 100 mg PO DAILY 12/25/19 [History Confirmed 12/25/19] Nitroglycerin 0.4 mg Tablet [Nitrostat 0.4 MG Tablet] 0.4 mg SL Q5MIN PRN MR X 3 PRN 12/25/19 [History Confirmed 12/25/19] Sucralfate 1 gm [Carafate 1 GM] 1 g PO TIDAC #0 12/26/19 [Rx Confirmed 12/25/19] Tramadol HCl 50 mg [Ultram 50 mg] 50 mg PO TID PRN #15 tablet 12/26/19 [Rx] Allergies/Adverse Reactions: Allergies Allergy/AdvReac Type Severity Reaction Status Date / Time hydromorphone [From Dilaudid] AdvReac Mild Vomiting Verified 10/29/19 16:54 - Past Medical History Past Medical History: Yes Neurological History: No Pertinent History ENT History: No Pertinent History Cardiac History: Hypertension, Myocardial Infarction ([place]) Respiratory History: No Pertinent History Endocrine Medical History: Hypoglycemia Musculoskelatal History: No Pertinent History GI Medical History: Ulcer History: No Pertinent History Pyscho-Social History: Anxiety Reproductive Disorders: No Pertinent History Comment: [place] and heart cath - Female History Hx Last Menstrual Period: post Are you now?: No - Past Surgical History Past Surgical History: Yes Neuro Surgical History: No Pertinent History Cardiac History: Cardiac Catheterization Respiratory Surgery: No Pertinent History GI Surgical History: Appendectomy Genitourinary Surgical Hx: No Pertinent History Musculskeletal Surgical Hx: No Pertinent History Female Surgical History: Hysterectomy - Social History Smoking Status: Never smoker Exposure to second hand smoke: No Alcohol: Rarely Drug Use: none - Physical Exam Vital Signs: Vital Signs - 24 hr Temp Pulse Resp BP Pulse Ox 12/26/19 12:00 97.8 F 62 14 129/69 97 12/26/19 10:37 67 124/59 12/26/19 08:00 97.4 F 60 12 96/55 97 12/26/19 04:21 98.2 F 55 L 17 121/59 96 12/25/19 23:56 97.6 F 57 L 17 106/51 95 12/25/19 21:11 97.7 F 63 18 123/59 97 12/25/19 20:34 95 12/25/19 20:00 54 L 16 110/59 94 L 12/25/19 18:49 56 L 18 129/66 95 12/25/19 16:57 68 16 128/68 93 L 12/25/19 16:00 76 20 122/59 97 12/25/19 15:05 97.4 F 56 L 22 127/58 95 Results - Labs Lab/Micro Results: Lab Results-Last 24 Hours 12/25/19 12/25/19 12/25/19 Range/Units 14:29 14:29 14:29 WBC 9.1 (4.0-10.5) K/mm3 RBC 4.45 (4.1-5.4) M/mm3 Hgb 13.3 (12.0-16.0) gm/dl Hct 40.7 (35-47) % MCV 91.5 (78-100) fl MCH 29.9 (26-32) pg MCHC 32.7 (32-36) g/dl RDW 15.0 H (11.5-14.0) % Plt Count 230 (150-450) K/mm3 MPV 11.8 H (7.5-11.0) fl Gran % 60.5 (36.0-66.0) % Eos # (Auto) 0.22 (0-0.5) Absolute Lymphs (auto) 2.52 (1.0-4.6) Absolute Monos (auto) 0.84 (0.0-1.3) Lymphocytes % 27.7 (24.0-44.0) % Monocytes % 9.2 (0.0-12.0) % Eosinophils % 2.4 (0.00-5.0) % Basophils % 0.2 (0.0-0.4) % Absolute Granulocytes 5.50 (1.4-6.9) Basophils # 0.02 (0-0.4) D-Dimer (215-500) ng/mL Sodium 141 (137-145) mmol/L Potassium 4.2 (3.5-5.1) mmol/L Chloride 105 (98-107) mmol/L Carbon Dioxide 28 (22-30) mmol/L Anion Gap 12.1 (5-15) MEQ/L BUN 25 H (7-17) mg/dL Creatinine 0.92 (0.52-1.04) mg/dL Estimated GFR > 60.0 ML/MIN Glucose 97 (74-106) mg/dL Calcium 9.5 (8.4-10.2) mg/dL Total Bilirubin 0.40 (0.2-1.3) mg/dL AST 27 (14-36) U/L ALT 25 (0-35) U/L Alkaline Phosphatase 131 H (38-126) U/L Troponin I < 0.012 (0.000-0.034) ng/mL Serum Total Protein 7.8 (6.3-8.2) g/dL Albumin 4.2 (3.5-5.0) g/dL Lipase 112 (23-300) U/L Urine Color (YELLOW) Urine Appearance (CLEAR) Urine pH (5-6) Ur Specific [place] (1.005-1.025) Urine Protein (Negative) Urine Ketones (NEGATIVE) Urine Blood (0-5) Anshul/ul Urine Nitrite (NEGATIVE) Urine Bilirubin (NEGATIVE) Urine Urobilinogen (0-1) mg/dL Ur Leukocyte Esterase (NEGATIVE) Urine WBC (Auto) (0-5) /HPF Urine RBC (Auto) (0-2) /HPF U Epithel Cells (Auto) (FEW) /HPF Urine Bacteria (Auto) (NEGATIVE) /HPF Urine Mucus (Auto) (NEGATIVE) /HPF Urine Culture Reflexed (NO) Urine Glucose (NEGATIVE) mg/dL SARS-CoV-2 (PCR) (NEGATIVE) 12/25/19 12/25/19 12/25/19 Range/Units 16:53 19:00 19:00 WBC (4.0-10.5) K/mm3 RBC (4.1-5.4) M/mm3 Hgb (12.0-16.0) gm/dl Hct (35-47) % MCV (78-100) fl MCH (26-32) pg MCHC (32-36) g/dl RDW (11.5-14.0) % Plt Count (150-450) K/mm3 MPV (7.5-11.0) fl Gran % (36.0-66.0) % Eos # (Auto) (0-0.5) Absolute Lymphs (auto) (1.0-4.6) Absolute Monos (auto) (0.0-1.3) Lymphocytes % (24.0-44.0) % Monocytes % (0.0-12.0) % Eosinophils % (0.00-5.0) % Basophils % (0.0-0.4) % Absolute Granulocytes (1.4-6.9) Basophils # (0-0.4) D-Dimer 396 (215-500) ng/mL Sodium (137-145) mmol/L Potassium (3.5-5.1) mmol/L Chloride (98-107) mmol/L Carbon Dioxide (22-30) mmol/L Anion Gap (5-15) MEQ/L BUN (7-17) mg/dL Creatinine (0.52-1.04) mg/dL Estimated GFR ML/MIN Glucose (74-106) mg/dL Calcium (8.4-10.2) mg/dL Total Bilirubin (0.2-1.3) mg/dL AST (14-36) U/L ALT (0-35) U/L Alkaline Phosphatase (38-126) U/L Troponin I < 0.012 (0.000-0.034) ng/mL Serum Total Protein (6.3-8.2) g/dL Albumin (3.5-5.0) g/dL Lipase (23-300) U/L Urine Color YELLOW (YELLOW) Urine Appearance SLIGHTLY CLOUDY (CLEAR) Urine pH 6.0 (5-6) Ur Specific [place] 1.036 (1.005-1.025) Urine Protein NEGATIVE (Negative) Urine Ketones NEGATIVE (NEGATIVE) Urine Blood NEGATIVE (0-5) Anshul/ul Urine Nitrite NEGATIVE (NEGATIVE) Urine Bilirubin NEGATIVE (NEGATIVE) Urine Urobilinogen NEGATIVE (0-1) mg/dL Ur Leukocyte Esterase TRACE (NEGATIVE) Urine WBC (Auto) 0-2 (0-5) /HPF Urine RBC (Auto) NONE SEEN (0-2) /HPF U Epithel Cells (Auto) RARE (FEW) /HPF Urine Bacteria (Auto) NONE SEEN (NEGATIVE) /HPF Urine Mucus (Auto) SLIGHT (NEGATIVE) /HPF Urine Culture Reflexed NO (NO) Urine Glucose NEGATIVE (NEGATIVE) mg/dL SARS-CoV-2 (PCR) (NEGATIVE) 12/25/19 12/26/19 12/26/19 Range/Units 22:15 01:13 04:20 WBC (4.0-10.5) K/mm3 RBC (4.1-5.4) M/mm3 Hgb (12.0-16.0) gm/dl Hct (35-47) % MCV (78-100) fl MCH (26-32) pg MCHC (32-36) g/dl RDW (11.5-14.0) % Plt Count (150-450) K/mm3 MPV (7.5-11.0) fl Gran % (36.0-66.0) % Eos # (Auto) (0-0.5) Absolute Lymphs (auto) (1.0-4.6) Absolute Monos (auto) (0.0-1.3) Lymphocytes % (24.0-44.0) % Monocytes % (0.0-12.0) % Eosinophils % (0.00-5.0) % Basophils % (0.0-0.4) % Absolute Granulocytes (1.4-6.9) Basophils # (0-0.4) D-Dimer (215-500) ng/mL Sodium (137-145) mmol/L Potassium (3.5-5.1) mmol/L Chloride (98-107) mmol/L Carbon Dioxide (22-30) mmol/L Anion Gap (5-15) MEQ/L BUN (7-17) mg/dL Creatinine (0.52-1.04) mg/dL Estimated GFR ML/MIN Glucose (74-106) mg/dL Calcium (8.4-10.2) mg/dL Total Bilirubin (0.2-1.3) mg/dL AST (14-36) U/L ALT (0-35) U/L Alkaline Phosphatase (38-126) U/L Troponin I < 0.012 < 0.012 < 0.012 (0.000-0.034) ng/mL Serum Total Protein (6.3-8.2) g/dL Albumin (3.5-5.0) g/dL Lipase (23-300) U/L Urine Color (YELLOW) Urine Appearance (CLEAR) Urine pH (5-6) Ur Specific [place] (1.005-1.025) Urine Protein (Negative) Urine Ketones (NEGATIVE) Urine Blood (0-5) Anshul/ul Urine Nitrite (NEGATIVE) Urine Bilirubin (NEGATIVE) Urine Urobilinogen (0-1) mg/dL Ur Leukocyte Esterase (NEGATIVE) Urine WBC (Auto) (0-5) /HPF Urine RBC (Auto) (0-2) /HPF U Epithel Cells (Auto) (FEW) /HPF Urine Bacteria (Auto) (NEGATIVE) /HPF Urine Mucus (Auto) (NEGATIVE) /HPF Urine Culture Reflexed (NO) Urine Glucose (NEGATIVE) mg/dL SARS-CoV-2 (PCR) (NEGATIVE) 12/26/19 12/26/19 12/26/19 Range/Units 04:20 04:20 09:00 WBC 8.4 (4.0-10.5) K/mm3 RBC 4.37 (4.1-5.4) M/mm3 Hgb 13.0 (12.0-16.0) gm/dl Hct 40.1 (35-47) % MCV 91.8 (78-100) fl MCH 29.7 (26-32) pg MCHC 32.4 (32-36) g/dl RDW 14.9 H (11.5-14.0) % Plt Count 212 (150-450) K/mm3 MPV 10.9 (7.5-11.0) fl Gran % 74.6 H (36.0-66.0) % Eos # (Auto) 0.05 (0-0.5) Absolute Lymphs (auto) 1.55 (1.0-4.6) Absolute Monos (auto) 0.51 (0.0-1.3) Lymphocytes % 18.5 L (24.0-44.0) % Monocytes % 6.1 (0.0-12.0) % Eosinophils % 0.6 (0.00-5.0) % Basophils % 0.2 (0.0-0.4) % Absolute Granulocytes 6.24 (1.4-6.9) Basophils # 0.02 (0-0.4) D-Dimer (215-500) ng/mL Sodium 137 (137-145) mmol/L Potassium 4.7 (3.5-5.1) mmol/L Chloride 105 (98-107) mmol/L Carbon Dioxide 27 (22-30) mmol/L Anion Gap 9.8 (5-15) MEQ/L BUN 25 H (7-17) mg/dL Creatinine 0.92 (0.52-1.04) mg/dL Estimated GFR > 60.0 ML/MIN Glucose 128 H (74-106) mg/dL Calcium 9.1 (8.4-10.2) mg/dL Total Bilirubin 0.40 (0.2-1.3) mg/dL AST 25 (14-36) U/L ALT 23 (0-35) U/L Alkaline Phosphatase 84 (38-126) U/L Troponin I (0.000-0.034) ng/mL Serum Total Protein 7.0 (6.3-8.2) g/dL Albumin 3.7 (3.5-5.0) g/dL Lipase (23-300) U/L Urine Color (YELLOW) Urine Appearance (CLEAR) Urine pH (5-6) Ur Specific [place] (1.005-1.025) Urine Protein (Negative) Urine Ketones (NEGATIVE) Urine Blood (0-5) Anshul/ul Urine Nitrite (NEGATIVE) Urine Bilirubin (NEGATIVE) Urine Urobilinogen (0-1) mg/dL Ur Leukocyte Esterase (NEGATIVE) Urine WBC (Auto) (0-5) /HPF Urine RBC (Auto) (0-2) /HPF U Epithel Cells (Auto) (FEW) /HPF Urine Bacteria (Auto) (NEGATIVE) /HPF Urine Mucus (Auto) (NEGATIVE) /HPF Urine Culture Reflexed (NO) Urine Glucose (NEGATIVE) mg/dL SARS-CoV-2 (PCR) NEGATIVE (NEGATIVE) - Radiology Impressions Radiology Exams & Impressions: Radiology Procedures Category Date Time Status ABDOMEN AND PELVIS W CONTRAST [CT] Stat Exams 12/25/19 17:27 Completed CHEST 1 VIEW (PORTABLE) Stat Exams 12/25/19 15:54 Completed Assessment/Plan (1) Chest pain, rule out acute myocardial infarction Current Visit: Yes Status: Resolved Assessment & Plan: Hx OH 09/25/[address] Perez. Serial troponins were negative. Code(s): R07.9 - CHEST PAIN, UNSPECIFIED (2) Gastritis Current Visit: Yes Status: Acute Assessment & Plan: take carafate and PPI-melt carafate in water then drink on empty stomach.Is on Eliquis. Code(s): K29.70 - GASTRITIS, UNSPECIFIED, WITHOUT BLEEDING (3) RUQ abdominal pain Current Visit: Yes Status: Acute Assessment & Plan: outpatient GBUS scheduled,follow with PCP [employer] Dede Cobb-may need Hida scan. Code(s): R10.11 - RIGHT UPPER QUADRANT PAIN Hospital Summary - Vitals & Intake/Output Vital Signs: Vital Signs Temperature 97.8 F 12/26/19 12:00 Pulse Rate 62 12/26/19 12:00 Respiratory Rate 14 12/26/19 12:00 Blood Pressure 129/69 12/26/19 12:00 O2 Sat by Pulse Oximetry 97 12/26/19 12:00 Intake & Output: Intake & Output 12/24/19 12/25/19 12/26/19 12/27/19 11:59 11:59 11:59 11:59 Intake Total 200 Output Total 450 Balance -250 Weight 130.6 kg - Lab Result Diagrams: 12/26/19 04:20 12/26/19 04:20 Lab Results-Last 24 Hrs: Lab Results-Last 24 Hours 12/25/19 12/25/19 12/25/19 Range/Units 14:29 14:29 14:29 WBC 9.1 (4.0-10.5) K/mm3 RBC 4.45 (4.1-5.4) M/mm3 Hgb 13.3 (12.0-16.0) gm/dl Hct 40.7 (35-47) % MCV 91.5 (78-100) fl MCH 29.9 (26-32) pg MCHC 32.7 (32-36) g/dl RDW 15.0 H (11.5-14.0) % Plt Count 230 (150-450) K/mm3 MPV 11.8 H (7.5-11.0) fl Gran % 60.5 (36.0-66.0) % Eos # (Auto) 0.22 (0-0.5) Absolute Lymphs (auto) 2.52 (1.0-4.6) Absolute Monos (auto) 0.84 (0.0-1.3) Lymphocytes % 27.7 (24.0-44.0) % Monocytes % 9.2 (0.0-12.0) % Eosinophils % 2.4 (0.00-5.0) % Basophils % 0.2 (0.0-0.4) % Absolute Granulocytes 5.50 (1.4-6.9) Basophils # 0.02 (0-0.4) D-Dimer (215-500) ng/mL Sodium 141 (137-145) mmol/L Potassium 4.2 (3.5-5.1) mmol/L Chloride 105 (98-107) mmol/L Carbon Dioxide 28 (22-30) mmol/L Anion Gap 12.1 (5-15) MEQ/L BUN 25 H (7-17) mg/dL Creatinine 0.92 (0.52-1.04) mg/dL Estimated GFR > 60.0 ML/MIN Glucose 97 (74-106) mg/dL Calcium 9.5 (8.4-10.2) mg/dL Total Bilirubin 0.40 (0.2-1.3) mg/dL AST 27 (14-36) U/L ALT 25 (0-35) U/L Alkaline Phosphatase 131 H (38-126) U/L Troponin I < 0.012 (0.000-0.034) ng/mL Serum Total Protein 7.8 (6.3-8.2) g/dL Albumin 4.2 (3.5-5.0) g/dL Lipase 112 (23-300) U/L Urine Color (YELLOW) Urine Appearance (CLEAR) Urine pH (5-6) Ur Specific [place] (1.005-1.025) Urine Protein (Negative) Urine Ketones (NEGATIVE) Urine Blood (0-5) Anshul/ul Urine Nitrite (NEGATIVE) Urine Bilirubin (NEGATIVE) Urine Urobilinogen (0-1) mg/dL Ur Leukocyte Esterase (NEGATIVE) Urine WBC (Auto) (0-5) /HPF Urine RBC (Auto) (0-2) /HPF U Epithel Cells (Auto) (FEW) /HPF Urine Bacteria (Auto) (NEGATIVE) /HPF Urine Mucus (Auto) (NEGATIVE) /HPF Urine Culture Reflexed (NO) Urine Glucose (NEGATIVE) mg/dL SARS-CoV-2 (PCR) (NEGATIVE) 12/25/19 12/25/19 12/25/19 Range/Units 16:53 19:00 19:00 WBC (4.0-10.5) K/mm3 RBC (4.1-5.4) M/mm3 Hgb (12.0-16.0) gm/dl Hct (35-47) % MCV (78-100) fl MCH (26-32) pg MCHC (32-36) g/dl RDW (11.5-14.0) % Plt Count (150-450) K/mm3 MPV (7.5-11.0) fl Gran % (36.0-66.0) % Eos # (Auto) (0-0.5) Absolute Lymphs (auto) (1.0-4.6) Absolute Monos (auto) (0.0-1.3) Lymphocytes % (24.0-44.0) % Monocytes % (0.0-12.0) % Eosinophils % (0.00-5.0) % Basophils % (0.0-0.4) % Absolute Granulocytes (1.4-6.9) Basophils # (0-0.4) D-Dimer 396 (215-500) ng/mL Sodium (137-145) mmol/L Potassium (3.5-5.1) mmol/L Chloride (98-107) mmol/L Carbon Dioxide (22-30) mmol/L Anion Gap (5-15) MEQ/L BUN (7-17) mg/dL Creatinine (0.52-1.04) mg/dL Estimated GFR ML/MIN Glucose (74-106) mg/dL Calcium (8.4-10.2) mg/dL Total Bilirubin (0.2-1.3) mg/dL AST (14-36) U/L ALT (0-35) U/L Alkaline Phosphatase (38-126) U/L Troponin I < 0.012 (0.000-0.034) ng/mL Serum Total Protein (6.3-8.2) g/dL Albumin (3.5-5.0) g/dL Lipase (23-300) U/L Urine Color YELLOW (YELLOW) Urine Appearance SLIGHTLY CLOUDY (CLEAR) Urine pH 6.0 (5-6) Ur Specific [place] 1.036 (1.005-1.025) Urine Protein NEGATIVE (Negative) Urine Ketones NEGATIVE (NEGATIVE) Urine Blood NEGATIVE (0-5) Anshul/ul Urine Nitrite NEGATIVE (NEGATIVE) Urine Bilirubin NEGATIVE (NEGATIVE) Urine Urobilinogen NEGATIVE (0-1) mg/dL Ur Leukocyte Esterase TRACE (NEGATIVE) Urine WBC (Auto) 0-2 (0-5) /HPF Urine RBC (Auto) NONE SEEN (0-2) /HPF U Epithel Cells (Auto) RARE (FEW) /HPF Urine Bacteria (Auto) NONE SEEN (NEGATIVE) /HPF Urine Mucus (Auto) SLIGHT (NEGATIVE) /HPF Urine Culture Reflexed NO (NO) Urine Glucose NEGATIVE (NEGATIVE) mg/dL SARS-CoV-2 (PCR) (NEGATIVE) 12/25/19 12/26/19 12/26/19 Range/Units 22:15 01:13 04:20 WBC (4.0-10.5) K/mm3 RBC (4.1-5.4) M/mm3 Hgb (12.0-16.0) gm/dl Hct (35-47) % MCV (78-100) fl MCH (26-32) pg MCHC (32-36) g/dl RDW (11.5-14.0) % Plt Count (150-450) K/mm3 MPV (7.5-11.0) fl Gran % (36.0-66.0) % Eos # (Auto) (0-0.5) Absolute Lymphs (auto) (1.0-4.6) Absolute Monos (auto) (0.0-1.3) Lymphocytes % (24.0-44.0) % Monocytes % (0.0-12.0) % Eosinophils % (0.00-5.0) % Basophils % (0.0-0.4) % Absolute Granulocytes (1.4-6.9) Basophils # (0-0.4) D-Dimer (215-500) ng/mL Sodium (137-145) mmol/L Potassium (3.5-5.1) mmol/L Chloride (98-107) mmol/L Carbon Dioxide (22-30) mmol/L Anion Gap (5-15) MEQ/L BUN (7-17) mg/dL Creatinine (0.52-1.04) mg/dL Estimated GFR ML/MIN Glucose (74-106) mg/dL Calcium (8.4-10.2) mg/dL Total Bilirubin (0.2-1.3) mg/dL AST (14-36) U/L ALT (0-35) U/L Alkaline Phosphatase (38-126) U/L Troponin I < 0.012 < 0.012 < 0.012 (0.000-0.034) ng/mL Serum Total Protein (6.3-8.2) g/dL Albumin (3.5-5.0) g/dL Lipase (23-300) U/L Urine Color (YELLOW) Urine Appearance (CLEAR) Urine pH (5-6) Ur Specific [place] (1.005-1.025) Urine Protein (Negative) Urine Ketones (NEGATIVE) Urine Blood (0-5) Anshul/ul Urine Nitrite (NEGATIVE) Urine Bilirubin (NEGATIVE) Urine Urobilinogen (0-1) mg/dL Ur Leukocyte Esterase (NEGATIVE) Urine WBC (Auto) (0-5) /HPF Urine RBC (Auto) (0-2) /HPF U Epithel Cells (Auto) (FEW) /HPF Urine Bacteria (Auto) (NEGATIVE) /HPF Urine Mucus (Auto) (NEGATIVE) /HPF Urine Culture Reflexed (NO) Urine Glucose (NEGATIVE) mg/dL SARS-CoV-2 (PCR) (NEGATIVE) 12/26/19 12/26/19 12/26/19 Range/Units 04:20 04:20 09:00 WBC 8.4 (4.0-10.5) K/mm3 RBC 4.37 (4.1-5.4) M/mm3 Hgb 13.0 (12.0-16.0) gm/dl Hct 40.1 (35-47) % MCV 91.8 (78-100) fl MCH 29.7 (26-32) pg MCHC 32.4 (32-36) g/dl RDW 14.9 H (11.5-14.0) % Plt Count 212 (150-450) K/mm3 MPV 10.9 (7.5-11.0) fl Gran % 74.6 H (36.0-66.0) % Eos # (Auto) 0.05 (0-0.5) Absolute Lymphs (auto) 1.55 (1.0-4.6) Absolute Monos (auto) 0.51 (0.0-1.3) Lymphocytes % 18.5 L (24.0-44.0) % Monocytes % 6.1 (0.0-12.0) % Eosinophils % 0.6 (0.00-5.0) % Basophils % 0.2 (0.0-0.4) % Absolute Granulocytes 6.24 (1.4-6.9) Basophils # 0.02 (0-0.4) D-Dimer (215-500) ng/mL Sodium 137 (137-145) mmol/L Potassium 4.7 (3.5-5.1) mmol/L Chloride 105 (98-107) mmol/L Carbon Dioxide 27 (22-30) mmol/L Anion Gap 9.8 (5-15) MEQ/L BUN 25 H (7-17) mg/dL Creatinine 0.92 (0.52-1.04) mg/dL Estimated GFR > 60.0 ML/MIN Glucose 128 H (74-106) mg/dL Calcium 9.1 (8.4-10.2) mg/dL Total Bilirubin 0.40 (0.2-1.3) mg/dL AST 25 (14-36) U/L ALT 23 (0-35) U/L Alkaline Phosphatase 84 (38-126) U/L Troponin I (0.000-0.034) ng/mL Serum Total Protein 7.0 (6.3-8.2) g/dL Albumin 3.7 (3.5-5.0) g/dL Lipase (23-300) U/L Urine Color (YELLOW) Urine Appearance (CLEAR) Urine pH (5-6) Ur Specific [place] (1.005-1.025) Urine Protein (Negative) Urine Ketones (NEGATIVE) Urine Blood (0-5) Anshul/ul Urine Nitrite (NEGATIVE) Urine Bilirubin (NEGATIVE) Urine Urobilinogen (0-1) mg/dL Ur Leukocyte Esterase (NEGATIVE) Urine WBC (Auto) (0-5) /HPF Urine RBC (Auto) (0-2) /HPF U Epithel Cells (Auto) (FEW) /HPF Urine Bacteria (Auto) (NEGATIVE) /HPF Urine Mucus (Auto) (NEGATIVE) /HPF Urine Culture Reflexed (NO) Urine Glucose (NEGATIVE) mg/dL SARS-CoV-2 (PCR) NEGATIVE (NEGATIVE) - Radiology Exams Ordered Rad Exams-Entire Visit: Radiology Procedures Category Date Time Status ABDOMEN AND PELVIS W CONTRAST [CT] Stat Exams 12/25/19 17:27 Completed CHEST 1 VIEW (PORTABLE) Stat Exams 12/25/19 15:54 Completed - Discharge Disposition: Home, Self-Care Condition: Stable Prescriptions: New Tramadol HCl 50 mg [Ultram 50 mg] 50 mg PO TID PRN #15 tablet PRN Reason: Pain Continue PANTOPRAZOLE 40 mg Tablet [Protonix 40MG Tablet] 40 mg PO DAILY Apixaban [Eliquis] 10 mg PO BID Losartan Potassium [Cozaar] 100 mg PO DAILY Amlodipine Besylate 5 mg [Norvasc 5 mg] 5 mg PO DAILY Triamterene/Hydrochlorothiazid [Triamterene-Hctz 37.5-25 mg Tb] 1 each PO DAILY Nitroglycerin 0.4 mg Tablet [Nitrostat 0.4 MG Tablet] 0.4 mg SL Q5MIN PRN MR X 3 PRN PRN Reason: Chest Pain Docusate Sodium [Stool Softener] 100 mg PO DAILY Alprazolam 1 mg [Xanax 1 mg] 1 mg PO Q4H PRN PRN PRN Reason: Anxiety Changed Sucralfate 1 gm [Carafate 1 GM] 1 g PO TIDAC #0 Discontinued Tramadol HCl 50 mg [Ultram 50 mg] 50 mg PO BIDPRN PRN PRN Reason: Pain Outpatient Orders: ABDOMINAL-LIMITED Facility: [facility], Location: RADIOLOGY Instructions: Gastric Ulcer (DC), Gallstones (DC) Follow up with: DEDE COBB NP [Primary Care Provider] - Call for Appointment
== END 2019-12-26 14:28 | disposition home or self-care (01) ==
LOC: ED 15:04 → MED SURG 20:36
PROVIDERS: ADMIT Family Medicine; ATTEND Family Medicine
DX: R07.9 Chest pain, unspecified (principal); R10.11 Right upper quadrant pain; I10 Essential (primary) hypertension; K29.70 Gastritis, unspecified, without bleeding; Z79.899 Other long term (current) drug therapy; Z79.01 Long term (current) use of anticoagulants; I25.2 Old myocardial infarction
CPT/HCPCS: 36000; 36415; 71045; 74177; 80053; 81001; 83690; 84484; 85025; 85379; 93005; 93041; 96374; 96375; 96376; 99285; U0003; 93268; J2270; J2405; A9270-GY; G0378

== ENCOUNTER 2020-06-09 11:52 | Emergency (ER) | payer OTHER ==
--- NOTE | 2020-06-09 12:01 | ERPHSYRPT ---
- History of Present Illness Time Seen by Provider: 06/09/20 12:01 Source: patient Exam Limitations: no limitations Physician History: This is a 59-year-old obese white female who has complaints of initially left calf pain a couple months ago followed by left knee pain after a fall that occurred 2 weeks ago. Patient has a history of DVT in the distant past. She is only taking an aspirin today. She has no shortness of breath. Patient is primarily concerned that she has a recurrent DVT because the calf pain/knot is not going away. Method of Injury: other (Patient did fall 2 weeks ago and complains of anterior knee pain since that fall) Occurred: other (Several weeks ago) Quality: aching Severity of Pain-Max: mild Severity of Pain-Current: mild Lower Extremities Pain: knee: left Modifying Factors: Improves With: movement Associated Symptoms: none Allergies/Adverse Reactions: hydromorphone [From Dilaudid] Adverse Reaction (Mild, Verified 10/29/19 16:54) Vomiting Home Medications: PANTOPRAZOLE 40 mg Tablet [Protonix 40MG Tablet] 40 mg PO DAILY 10/13/19 [History] Losartan Potassium [Cozaar] 100 mg PO DAILY 10/29/19 [History] Amlodipine Besylate 5 mg [Norvasc 5 mg] 5 mg PO DAILY 11/26/19 [History] Triamterene/Hydrochlorothiazid [Triamterene-Hctz 37.5-25 mg Tb] 1 each PO DAILY 11/26/19 [History] Alprazolam 1 mg [Xanax 1 mg] 1 mg PO Q4H PRN PRN 12/25/19 [History] Docusate Sodium [Stool Softener] 100 mg PO DAILY 12/25/19 [History] Nitroglycerin 0.4 mg Tablet [Nitrostat 0.4 MG Tablet] 0.4 mg SL Q5MIN PRN MR X 3 PRN 12/25/19 [History] Hx Tetanus, Diphtheria Vaccination/Date Given: No Hx Influenza Vaccination/Date Given: No Hx Pneumococcal Vaccination/Date Given: No Travel Risk - International Travel Have you traveled outside of the country in past 3 weeks: No - Coronavirus Screening Are you exhibiting any of the following symptoms?: No Close contact with a COVID-19 positive Pt in past 14-21 Days: No - Review of Systems Constitutional: No Symptoms Eyes: No Symptoms Ears, Nose, & Throat: No Symptoms Respiratory: No Symptoms Cardiac: No Symptoms Abdominal/Gastrointestinal: No Symptoms Genitourinary Symptoms: No Symptoms Musculoskeletal: Fall (Left anterior knee pain) Skin: No Symptoms Neurological: No Symptoms Psychological: No Symptoms Endocrine: No Symptoms Hematologic/Lymphatic: No Symptoms Immunological/Allergic: No Symptoms All Other Systems: Reviewed and Negative - Past Medical History Pertinent Past Medical History: Yes Neurological History: No Pertinent History ENT History: No Pertinent History Cardiac History: Hypertension, Myocardial Infarction (VT) Respiratory History: No Pertinent History Endocrine Medical History: Hypoglycemia Musculoskeletal History: No Pertinent History GI Medical History: Ulcer History: No Pertinent History Psycho-Social History: Anxiety Female Reproductive Disorders: No Pertinent History Other Medical History: VT and heart cath - Past Surgical History Past Surgical History: Yes Neuro Surgical History: No Pertinent History Cardiac: Cardiac Catheterization Respiratory: No Pertinent History Gastrointestinal: Appendectomy Genitourinary: No Pertinent History Musculoskeletal: No Pertinent History Female Surgical History: Hysterectomy - Social History Smoking Status: Never smoker Exposure to second hand smoke: No Drug Use: none Patient Lives Alone: Yes - Nursing Vital Signs Nursing Vital Signs: Initial Vital Signs Temperature 99.4 F 06/09/20 12:01 Pulse Rate 110 H 06/09/20 12:01 Respiratory Rate 22 06/09/20 12:01 Blood Pressure 155/90 06/09/20 12:01 O2 Sat by Pulse Oximetry 99 06/09/20 12:01 Pain Scale Pain Intensity 8 - Physical Exam General Appearance: no apparent distress, alert, anxiety, obese Eyes, Ears, Nose, Throat Exam: normal ENT inspection, moist mucous membranes Neck Exam: normal inspection, non-tender, supple, full range of motion Cardiovascular/Respiratory Exam: chest non-tender, no respiratory distress Gastrointestinal/Abdominal Exam: non-tender Back Exam: normal inspection, normal range of motion, vertebral tenderness, No CVA tenderness Hips Exam: bilateral: non-tender, normal inspection, normal range of motion, no evidence of injury Legs Exam: bilateral leg: non-tender, normal inspection, normal range of motion, no evidence of injury Knees Exam: right knee: non-tender, normal inspection, normal range of motion, no evidence of injury, left knee: bone tenderness, soft tissue tenderness Ankle Exam: bilateral ankle: non-tender, normal inspection, normal range of motion, no evidence of injury Foot Exam: bilateral foot: non-tender, normal inspection, normal range of motion, no evidence of injury Neuro/Tendon Exam: normal sensation, normal motor functions, normal tendon functions Mental Status Exam: alert, oriented x 3, cooperative Skin Exam: normal color, warm, dry SpO2 Interpretation: normal O2 Delivery: Room Air - Course Nursing assessment & vital signs reviewed: Yes Ordered Tests: Active Orders 24 hr Category Date Time Status KNEE (1 OR 2 VIEW) Stat Exams 06/09/20 12:09 Taken VENOUS UNILAT/LIMITED EXTREMIT [US] Stat Exams 06/09/20 12:42 Taken - Progress Progress: unchanged, pain not gone completely Progress Note: 06/09/20 12:54 Venous Doppler ultrasound left lower extremity reveals no evidence of any DVT. X-ray of left knee shows no acute fracture or dislocation Counseled pt/family regarding: diagnosis, rad results - Departure Departure Disposition: Home Clinical Impression: Left anterior knee pain, Pain of left calf Condition: Stable Critical Care Time: No Referrals: DEDE MCDONOUGH NP [Primary Care Provider] - Additional Instructions: Take ibuprofen 600 mg orally 3 times a day with food if not allergic. Alternate ice and heat to both your left anterior knee and calf 2-3 times a day. Call your primary care doctor to make arrangements for follow-up evaluation including MRI if indicated.
[2020-06-09 12:59] VITALS: BP 143/64; PULSE 65; O2SAT 98
--- NOTE | 2020-06-09 13:08 | XRAY ---
Exam: Left lower extremity duplex Doppler venous ultrasound exam from 06/09/2020. Comparison: None. Indication: Left leg/knee pain. Findings: Dexter scale images, color blood flow images, and Doppler tracings without and with augmentation were obtained through the major veins of the left lower extremity. Normal color blood flow, transducer compression, and Doppler signal augmentation was seen throughout. The greater saphenous vein where it joins the superficial femoral vein within the proximal left thigh reveals normal color blood flow and Doppler signal augmentation. Normal color blood flow and Doppler signal are seen within the profunda femoral vein. Impression: 1. No sonographic or Doppler evidence of deep venous thrombosis is seen within the left lower extremity.
--- NOTE | 2020-06-09 13:14 | XRAY ---
Exam: 2 views of the left knee from 06/09/2020. Comparison: None. Indication: 59-year-old female fell about 2 weeks ago, complains of pain. AP and crosstable lateral medial images of the left knee were obtained. The left knee is mildly flexed on the AP image which prohibits visualization of the femoral-tibial joint in this projection. I see no acute fracture or dislocation. No bone destruction is seen. The patellofemoral joint appears unremarkable on the lateral image. There may be a tiny amount of fluid within the suprapatellar bursa. The remainder of the soft tissues appears unremarkable. Impression: 1. No acute left knee fracture or dislocation is seen. 2. I suspect a tiny effusion within the suprapatellar bursa on the lateral radiograph.
== END 2020-06-09 13:10 | disposition home or self-care (01) ==
LOC: ED 11:52
DX: M25.562 Pain in left knee (principal); M79.662 Pain in left lower leg; I10 Essential (primary) hypertension; W19.XXXD Unspecified fall, subsequent encounter; Z79.899 Other long term (current) drug therapy; Z86.718 Personal history of other venous thrombosis and embolism
CPT/HCPCS: 73560; 93971; 99284

== ENCOUNTER 2021-10-24 06:45 | Emergency (ER) | payer OTHER ==
--- NOTE | 2021-10-24 07:35 | ERPHSYRPT ---
- History of Present Illness Time Seen by Provider: 10/24/21 07:10 Patient Subjective Stated Complaint: chest pain that woke me up at 3am. It just getting worse. I've had it for a week off and on. Triage Nursing Assessment: pt was woke up this morning at 3am with chest pain that is midsternal and radiates to her left shoulder, left side of neck and down left arm. Pt has had this chest pain off and on x1 week but this was by far the most pain and she can't get relief from it. Pt saw Dr. Koroma yesterday and he added 2 medications, Amlodipine 5mg daily and isosob mono er 60mg daily. Pt als o has a headache and believes its related to the new medicines. Lungs clear, heart tones reg, no edema noted. Physician History: This is an obese 61-year-old white female who presents with intermittent chest pain for the last week. She is already been evaluated at [facility] in the past week for similar symptoms and her cardiac work-up was negative at that time. She did see Dr. Koroma, her product safety officer, within the last week. He added amlodipine and isosorbide dinitrate medication. In the last week, patient has had substernal, central chest pain that is described as an ache that radiates into her left shoulder left neck and down her left arm. At 3 AM this morning her symptoms worsened. Her product safety officer ordered an outpatient echocardiogram. Patient does have a history of hypertension, coronary artery disease/myocardial infarction, DVT, and anxiety. Patient had a myocardial infarction 2 years ago. Timing/Duration: intermittent (For 1 week), worse Location: substernal Chest Pain Radiation: neck, arm (Left) Severity of Pain-Max: moderate Severity of Pain-Current: moderate Modifying Factors: Improves With: nothing Associated Symptoms: denies symptoms Prior Chest Pain/Cardiac Workup: cardiac cath, heart attack Nitro Today/Relief: no nitro taken today Aspirin Treatment Today: no aspirin today Allergies/Adverse Reactions: No Known Drug Allergies Allergy (Unverified 10/24/21 07:00) Home Medications: Losartan Potassium [Cozaar] 100 mg PO DAILY 10/29/19 [History] Amlodipine Besylate 5 mg [Norvasc 5 mg] 5 mg PO DAILY 11/26/19 [History] Nitroglycerin 0.4 mg Tablet [Nitrostat 0.4 MG Tablet] 0.4 mg SL Q5MIN PRN MR X 3 PRN 12/25/19 [History] Atorvastatin Calcium 40 mg PO HS 10/24/21 [History] Furosemide 20 mg [Lasix 20 mg] 20 mg PO DAILY PRN PRN 10/24/21 [History] Isosorbide Mononitrate 60 mg [Imdur 60MG] 60 mg PO DAILY 10/24/21 [History] Ranolazine [Ranolazine ER] 500 mg PO BID 10/24/21 [History] Tramadol HCl 50 mg [Ultram 50 mg] 50 mg PO TID PRN PRN 10/24/21 [History] Triamterene/Hydrochlorothiazid [Triamterene-Hctz 37.5-25 mg Tb] 1 tab PO DAILY 10/24/21 [History] Hx Tetanus, Diphtheria Vaccination/Date Given: Yes Hx Influenza Vaccination/Date Given: Yes Hx Pneumococcal Vaccination/Date Given: Yes Immunizations Up to Date: Yes Travel Risk - International Travel Have you traveled outside of the country in past 3 weeks: No - Coronavirus Screening Are you exhibiting any of the following symptoms?: No Close contact with a COVID-19 positive Pt in past 14-21 Days: No - Vaccine Status Have you recieved a Covid-19 vaccination: Yes Care Team Assistant: Moderna - Vaccination Dates Date of 2cond Vaccination (if applicable): . - Review of Systems Constitutional: No Symptoms Eyes: No Symptoms Ears, Nose, & Throat: No Symptoms Respiratory: No Symptoms Cardiac: Chest Pain Abdominal/Gastrointestinal: No Symptoms Genitourinary Symptoms: No Symptoms Musculoskeletal: No Symptoms Skin: No Symptoms Neurological: No Symptoms Psychological: No Symptoms Endocrine: No Symptoms Hematologic/Lymphatic: No Symptoms Immunological/Allergic: No Symptoms All Other Systems: Reviewed and Negative - Past Medical History Pertinent Past Medical History: Yes Neurological History: No Pertinent History ENT History: No Pertinent History Cardiac History: High Cholesterol, Hypertension, Myocardial Infarction (MD) Respiratory History: No Pertinent History Endocrine Medical History: Hypoglycemia Musculoskeletal History: Fractures GI Medical History: Ulcer History: No Pertinent History Psycho-Social History: Anxiety, Depression Female Reproductive Disorders: No Pertinent History Other Medical History: MD and heart cath - Past Surgical History Past Surgical History: Yes Neuro Surgical History: No Pertinent History Cardiac: Cardiac Catheterization Respiratory: No Pertinent History Gastrointestinal: Appendectomy Genitourinary: No Pertinent History Musculoskeletal: Orthopedic Surgery Female Surgical History: Hysterectomy - Social History Smoking Status: Never smoker Exposure to second hand smoke: No Drug Use: none Patient Lives Alone: Yes - Nursing Vital Signs Nursing Vital Signs: Initial Vital Signs Temperature 98.6 F 10/24/21 06:46 Pulse Rate 100 H 10/24/21 06:46 Respiratory Rate 22 10/24/21 06:46 Blood Pressure 167/100 10/24/21 06:46 O2 Sat by Pulse Oximetry 99 10/24/21 06:46 Pain Scale Pain Intensity 6 - Physical Exam General Appearance: no apparent distress, alert, anxiety, obese Eye Exam: PERRL/EOMI, eyes nml inspection Ears, Nose, Throat Exam: normal ENT inspection, moist mucous membranes Neck Exam: normal inspection, non-tender, supple, full range of motion Respiratory Exam: normal breath sounds, chest tenderness, lungs clear, airway intact, No respiratory distress Cardiovascular Exam: regular rate/rhythm, normal heart sounds, normal peripheral pulses Gastrointestinal/Abdomen Exam: soft, normal bowel sounds, No tenderness Pelvic Exam: not done Rectal Exam: not done Back Exam: normal inspection, normal range of motion, No CVA tenderness Extremity Exam: normal inspection, normal range of motion, pelvis stable Neurologic Exam: alert, oriented x 3, cooperative, corporate trust officer II-XII nml as tested, normal mood/affect, nml cerebellar function, nml station & gait, sensation nml Skin Exam: normal color, warm, dry Lymphatic Exam: No adenopathy SpO2 Interpretation: normal SpO2: 99 O2 Delivery: Room Air - Course Nursing assessment & vital signs reviewed: Yes EKG Interpreted by Me: RATE (101), Sinus Tach, NORMAL AXIS, NORMAL INTERVALS, NORMAL QRS, NORMAL ST-T, Other (No acute ischemic changes. There is very mild new tachycardia on today's EKG when compared to EKG dated 12/25/2019.) Ordered Tests: Active Orders 24 hr Category Date Time Status Brim Stiffener STAT Care 10/24/21 07:37 Active EKG-ER Only STAT Care 10/24/21 07:37 Active IV Insertion STAT Care 10/24/21 07:37 Active Pulse Oximetry (ED) STAT Care 10/24/21 07:37 Active CHEST 1 VIEW (PORTABLE) Stat Exams 10/24/21 07:37 Completed CHEST WITH CONTRAST [CT] Stat Exams 10/24/21 09:06 Completed CBC W DIFF Stat Lab 10/24/21 07:15 Completed CMP Stat Lab 10/24/21 07:15 Completed D-DIMER QUANTITATIVE Stat Lab 10/24/21 07:15 Completed PROTIME WITH INR Stat Lab 10/24/21 07:15 Completed TROPONIN Q3H Lab 10/24/21 07:15 Completed TROPONIN Q3H Lab 10/24/21 10:45 Ordered TROPONIN Q3H Lab 10/24/21 13:45 Ordered TROPONIN Q3H Lab 10/24/21 16:45 Ordered TROPONIN Q3H Lab 10/24/21 19:45 Ordered Medication Summary Generic Name Dose Route Start Last Admin Trade Name Freq PRN Reason Stop Dose Admin Sodium Chloride 500 mls @ 500 mls/hr 10/24/21 09:06 Sodium Chloride 0.9% 500 Ml IV 10/24/21 10:05 .Q1H ONE Discontinued Medications Generic Name Dose Route Start Last Admin Trade Name Freq PRN Reason Stop Dose Admin Aspirin 324 mg 10/24/21 07:37 10/24/21 07:48 Aspirin 81 Mg Tab.Chew PO 10/24/21 07:38 324 mg STAT ONE Administration Lorazepam 1 mg 10/24/21 08:35 10/24/21 08:39 Lorazepam 1 Mg Tablet PO 10/24/21 08:36 1 mg STAT ONE Administration Lorazepam Confirm 10/24/21 08:39 Lorazepam 1 Mg Tablet Administered 10/24/21 08:40 Dose 1 mg .ROUTE .STK-MED ONE Morphine Sulfate 4 mg 10/24/21 07:37 10/24/21 07:40 Morphine Sulfate 4 Mg/Ml Injection IV 10/24/21 07:38 4 mg STAT ONE Administration Morphine Sulfate Confirm 10/24/21 07:39 Morphine Sulfate 4 Mg/Ml Injection Administered 10/24/21 07:40 Dose 4 mg .ROUTE .STK-MED ONE Ondansetron HCl 4 mg 10/24/21 07:37 10/24/21 07:40 Ondansetron Hcl 4 Mg/2 Ml Vial IV 10/24/21 07:38 4 mg STAT ONE Administration Ondansetron HCl Confirm 10/24/21 07:39 Ondansetron Hcl 4 Mg/2 Ml Vial Administered 10/24/21 07:40 Dose 4 mg .ROUTE .K-MED ONE Lab/Rad Data: Laboratory Result Diagrams 10/24/21 07:15 10/24/21 07:15 Laboratory Results 10/24/21 10/24/21 10/24/21 Range/Units 07:15 07:15 07:15 WBC (4.0-10.5) x10^3/uL RBC (4.1-5.4) x10^6/uL Hgb (12.0-16.0) g/dL Hct (35-47) % MCV (78-100) fL MCH (26-32) pg MCHC (32-36) g/dL RDW (11.5-14.0) % Plt Count (150-450) x10^3/uL MPV (7.5-11.0) fL Gran % (36.0-66.0) % Immature Gran % (Auto) (0.00-0.4) % Nucleat RBC Rel Count (0.00-0.1) % Eos # (Auto) (0-0.5) x10^3/uL Immature Gran # (Auto) (0.00-0.03) x10^3u/L Absolute Lymphs (auto) (1.0-4.6) x10^3/uL Absolute Monos (auto) (0.0-1.3) x10^3/uL Absolute Nucleated RBC (0.00-0.01) x10^3u/L Lymphocytes % (24.0-44.0) % Monocytes % (0.0-12.0) % Eosinophils % (0.00-5.0) % Basophils % (0.0-0.4) % Absolute Granulocytes (1.4-6.9) x10^3/uL Basophils # (0-0.4) x10^3/uL PT 10.1 (9.4-12.5) SECONDS INR 0.95 (0.8-3.0) D-Dimer 0.95 H* (0.0-0.50) mg/L Sodium 140 (137-145) mmol/L Potassium 3.8 (3.5-5.1) mmol/L Chloride 105 (98-107) mmol/L Carbon Dioxide 27 (22-30) mmol/L Anion Gap 13.0 (5-15) MEQ/L BUN 20 H (7-17) mg/dL Creatinine 1.28 H (0.52-1.04) mg/dL Estimated GFR 44.8 ML/MIN Glucose 114 H (74-106) mg/dL Calcium 9.2 (8.4-10.2) mg/dL Total Bilirubin 0.70 (0.2-1.3) mg/dL AST 23 (14-36) U/L ALT 18 (0-35) U/L Alkaline Phosphatase 116 (38-126) U/L Troponin I < 0.012 (0.000-0.034) ng/mL Serum Total Protein 7.6 (6.3-8.2) g/dL Albumin 4.0 (3.5-5.0) g/dL 10/24/21 Range/Units 07:15 WBC 9.7 (4.0-10.5) x10^3/uL RBC 4.28 (4.1-5.4) x10^6/uL Hgb 12.6 (12.0-16.0) g/dL Hct 38.6 (35-47) % MCV 90.2 (78-100) fL MCH 29.4 (26-32) pg MCHC 32.6 (32-36) g/dL RDW 14.2 H (11.5-14.0) % Plt Count 221 (150-450) x10^3/uL MPV 10.8 (7.5-11.0) fL Gran % 71.1 H (36.0-66.0) % Immature Gran % (Auto) 0.2 (0.00-0.4) % Nucleat RBC Rel Count 0.0 (0.00-0.1) % Eos # (Auto) 0.12 (0-0.5) x10^3/uL Immature Gran # (Auto) 0.02 (0.00-0.03) x10^3u/L Absolute Lymphs (auto) 1.77 (1.0-4.6) x10^3/uL Absolute Monos (auto) 0.86 (0.0-1.3) x10^3/uL Absolute Nucleated RBC 0.00 (0.00-0.01) x10^3u/L Lymphocytes % 18.2 L (24.0-44.0) % Monocytes % 8.9 (0.0-12.0) % Eosinophils % 1.2 (0.00-5.0) % Basophils % 0.4 (0.0-0.4) % Absolute Granulocytes 6.90 (1.4-6.9) x10^3/uL Basophils # 0.04 (0-0.4) x10^3/uL PT (9.4-12.5) SECONDS INR (0.8-3.0) D-Dimer (0.0-0.50) mg/L Sodium (137-145) mmol/L Potassium (3.5-5.1) mmol/L Chloride (98-107) mmol/L Carbon Dioxide (22-30) mmol/L Anion Gap (5-15) MEQ/L BUN (7-17) mg/dL Creatinine (0.52-1.04) mg/dL Estimated GFR ML/MIN Glucose (74-106) mg/dL Calcium (8.4-10.2) mg/dL Total Bilirubin (0.2-1.3) mg/dL AST (14-36) U/L ALT (0-35) U/L Alkaline Phosphatase (38-126) U/L Troponin I (0.000-0.034) ng/mL Serum Total Protein (6.3-8.2) g/dL Albumin (3.5-5.0) g/dL - Progress Progress: improved, re-examined Air Movement: good Progress Note: 10/24/21 09:33 Chest x-ray shows no acute cardiopulmonary processes 10/24/21 09:50 CTA of chest shows no acute cardiopulmonary process. Specifically, no evidence of pulmonary embolus. Medical decision making: This patient has had a negative work-up 3 to 4 days ago at a different hospital in terms of any cardiac emergency. today's workup also negative. Patient has no chest pain at this time. We will discharge the patient to home where she will go immediately to x-ray department for an outpatient echocardiogram. She will follow-up with Dr. Koroma. Blood Culture(s) Obtained: No Antibiotics given: No Counseled pt/family regarding: lab results, diagnosis, need for follow-up, rad results - Departure Departure Disposition: Home Clinical Impression: Chest pain Condition: Stable Critical Care Time: No Referrals: ZENAIDA DANGELO NP [Primary Care Provider] - Follow up/PCP as directed Additional Instructions: Go directly from the emergency department to the radiology department for your outpatient echocardiogram. Follow-up with your product safety officer for the results of this echocardiogram. Call your product safety officer office today to make a follow-up appointment. Return to the emergency department if symptoms worsen/recur. Take your medications as prescribed. If you were going to stop your isosorbide mono nitrate you need to discuss this with your product safety officer.
[2021-10-24] MEDS ORDERED: Zofran 4 MG/2 ML VIAL IV ONE (07:37)
[2021-10-24] MEDS ORDERED: MORPHINE SULFATE 4 MG INJ IV ONE (07:37)
[2021-10-24] MEDS ORDERED: BABY ASPIRIN 81 MG CHEW PO ONE (07:37)
[2021-10-24] MEDS ORDERED: MORPHINE SULFATE 4 MG INJ ONE (07:39)
[2021-10-24] MEDS ORDERED: Zofran 4 MG/2 ML VIAL ONE (07:39)
[2021-10-24 07:48] LABS: Basophil (Absolute #) 0.04 x10^3/uL (0-0.4); Eosinophil % 1.2 % (0.00-5.0); Eosinophil (Absolute #) 0.12 x10^3/uL (0-0.5); Hematocrit 38.6 % (35-47); Hemoglobin 12.6 g/dL (12.0-16.0); Lymphocyte (Absolute #) 1.77 x10^3/uL (1.0-4.6); Lymphocytes % 18.2 % (24.0-44.0); Mean Cell Volume 90.2 fL (78-100); Mean Corpuscular Hemoglobin 29.4 pg (26-32); Mean Corpuscular Hgb Concent. 32.6 g/dL (32-36); Mean Platelet Volume 10.8 fL (7.5-11.0); Monocyte (Absolute #) 0.86 x10^3/uL (0.0-1.3); Monocytes % 8.9 % (0.0-12.0); Neutrophil % 71.1 % (36.0-66.0); Platelet Count 221 x10^3/uL (150-450); Red Blood Count 4.28 x10^6/uL (4.1-5.4); Red Cell Distribution Width 14.2 % (11.5-14.0); White Blood Count 9.7 x10^3/uL (4.0-10.5)
[2021-10-24 08:06] LABS: BILIRUBIN,TOTAL 0.7 mg/dL (0.2-1.3); Calcium 9.2 mg/dL (8.4-10.2); Creatinine 1 1.28 mg/dL (0.52-1.04); EST GLOMERULAR FILTRATION RATE 44.8 ML/MIN; Potassium 3.8 mmol/L (3.5-5.1); Total Protein 7.6 g/dL (6.3-8.2)
[2021-10-24 08:17] LABS: INR 0.95 (0.8-3.0); PROTIME 10.1 SECONDS (9.4-12.5)
[2021-10-24] MEDS ORDERED: Ativan 1 MG PO ONE (08:35)
[2021-10-24] MEDS ORDERED: Ativan 1 MG ONE (08:39)
[2021-10-24 09:05] LABS: D-DIMER QUANTITATIVE 0.95 mg/L (0.0-0.50)
[2021-10-24] MEDS ORDERED: Sodium Chloride 0.9% 500 ML 500 ML IV ONE (09:06)
--- NOTE | 2021-10-24 09:14 | XRAY ---
Indication: Chest pain. Comparison: December 24, 2019. Portable chest remains clear. Heart not enlarged. Bony thorax intact again with osteopenia and degenerative changes. No new/acute findings.
[2021-10-24 09:38] VITALS: O2SAT 99
--- NOTE | 2021-10-24 09:44 | XRAY ---
Indication: Chest pain. Elevated d-dimer. Multiple contiguous axial images obtained through the chest using 100 cc Isovue 370 contrast and PE protocol. Comparison: November 26, 2019. Good opacification of the pulmonary arteries to include the lobar and segmental branches. No pulmonary embolus. Heart not enlarged. Aorta is normal in course and caliber. No pathologic mediastinal/hilar lymphadenopathy. Again small hiatal hernia. Lungs inflated with minimal bibasilar fibrosis/scarring. No suspicious pulmonary mass, infiltrate, or effusion. Bony thorax intact again with mild degenerative changes throughout the spine. Limited upper abdomen again demonstrates mild fatty liver. Impression: 1. Continued negative pulmonary embolus. No acute cardiopulmonary abnormalities. 2. Again small hiatal hernia and fatty liver.
[2021-10-24 10:07] VITALS: BP 120/76; PULSE 76
== END 2021-10-24 10:00 | disposition home or self-care (01) ==
LOC: ED 06:45
DX: R07.9 Chest pain, unspecified (principal); I10 Essential (primary) hypertension; E78.5 Hyperlipidemia, unspecified; Z79.891 Long term (current) use of opiate analgesic; Z79.899 Other long term (current) drug therapy
CPT/HCPCS: 36000; 36415; 71045; 71260; 80053; 84484; 85025; 85379; 85610; 93005; 93041; 94760; 96374; 99284; J2270; J2405; A9270-GY

== ENCOUNTER 2021-12-27 18:34 | Observation (INO) | payer OTHER ==
[2021-12-27 19:11] LABS: Absolute Neutrophil Ct (ANC) 4.91 x10^3/uL (1.4-6.9); Basophil (Absolute #) 0.05 x10^3/uL (0-0.4); Eosinophil % 2.2 % (0.00-5.0); Eosinophil (Absolute #) 0.19 x10^3/uL (0-0.5); Hematocrit 39.1 % (35-47); Hemoglobin 12.8 g/dL (12.0-16.0); Lymphocyte (Absolute #) 2.66 x10^3/uL (1.0-4.6); Lymphocytes % 31.3 % (24.0-44.0); Mean Cell Volume 92.2 fL (78-100); Mean Corpuscular Hemoglobin 30.2 pg (26-32); Mean Corpuscular Hgb Concent. 32.7 g/dL (32-36); Mean Platelet Volume 10.4 fL (7.5-11.0); Monocyte (Absolute #) 0.67 x10^3/uL (0.0-1.3); Monocytes % 7.9 % (0.0-12.0); Neutrophil % 57.6 % (36.0-66.0); Platelet Count 260 x10^3/uL (150-450); Red Blood Count 4.24 x10^6/uL (4.1-5.4); Red Cell Distribution Width 14.5 % (11.5-14.0); White Blood Count 8.5 x10^3/uL (4.0-10.5)
[2021-12-27 19:36] LABS: ALBUMIN 4.2 g/dL (3.5-5.0); ANION GAP 13.5 MEQ/L (5-15); BILIRUBIN,TOTAL 0.8 mg/dL (0.2-1.3); Calcium 9.1 mg/dL (8.4-10.2); Creatinine 1 1.08 mg/dL (0.52-1.04); EST GLOMERULAR FILTRATION RATE 54.5 ML/MIN; NT PRO BNP 98.6 pg/mL (0-900); Total Protein 7.6 g/dL (6.3-8.2)
[2021-12-27 19:48] LABS: INFLUENZA A NEGATIVE (NEGATIVE); INFLUENZA B NEGATIVE (NEGATIVE); RESPIRATORY SYNCTIAL VIRUS NEGATIVE (Negative); SARS-CoV-2 Xpert Express NEGATIVE (NEGATIVE)
[2021-12-27 19:53] LABS: Appearance CLEAR (CLEAR); Bilirubin NEGATIVE (NEGATIVE); Dipstick done @ ? MAIN LAB; Glucose NEGATIVE (NEGATIVE); Ketones NEGATIVE (NEGATIVE); Nitrite NEGATIVE (NEGATIVE); Ph 5.5 (5-6); Protein,Urine Dip NEGATIVE (Negative); RBC NEGATIVE Ery/ul (0-5); Specific Gravity 1.015 (1.005-1.025); Urobilinogen 0.2 mg/dL (0-1)
[2021-12-27 19:56] LABS: Urine Cultured Indicated? NO
--- NOTE | 2021-12-27 20:39 | ERPHSYRPT ---
- History of Present Illness Time Seen by Provider: 12/27/21 18:45 Source: patient Exam Limitations: no limitations Patient Subjective Stated Complaint: C/O SOB Triage Nursing Assessment: Patient ambulated back to ED without difficulites. She is alert and oriented. No SOB noted. Patient speaking a lot and rapidly. Skin warm, dry, normal skin tone. Some c/o "leg pain" as well during assessment. LANE [place] without difficulties. Physician History: Patient is a 61-year-old female presents to emergency department for evaluation of chest pain or shortness of breath. Symptoms are associated with nausea symptoms started today. Patient advised that she had an CT approximately 2 years ago. Patient is on aspirin. No stents were placed. Patient also complains of pain to both legs. Patient concerned that she may have a DVT. 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 Symptoms are mild to moderate in intensity. No specific worsening improving factors. Patient voices no other complaints or concerns at this time. Portions of this note were created with voice recognition technology. There may be grammatical, spelling, punctuation or sound alike errors Timing/Duration: today Severity: moderate Modifying Factors: Improves With: nothing Associated Symptoms: nausea, shortness of breath, No vomiting, No syncope, No seizure Allergies/Adverse Reactions: No Known Drug Allergies Allergy (Verified 12/27/21 18:38) Home Medications: Losartan Potassium [Cozaar] 100 mg PO DAILY 10/29/19 [History] Amlodipine Besylate 5 mg [Norvasc 5 mg] 5 mg PO DAILY 11/26/19 [History] Nitroglycerin 0.4 mg Tablet [Nitrostat 0.4 MG Tablet] 0.4 mg SL Q5MIN PRN MR X 3 PRN 12/25/19 [History] Atorvastatin Calcium 40 mg PO HS 10/24/21 [History] Furosemide 20 mg [Lasix 20 mg] 20 mg PO DAILY PRN PRN 10/24/21 [History] Isosorbide Mononitrate 60 mg [Imdur 60MG] 60 mg PO DAILY 10/24/21 [History] Ranolazine [Ranolazine ER] 500 mg PO BID 10/24/21 [History] Tramadol HCl 50 mg [Ultram 50 mg] 50 mg PO TID PRN PRN 10/24/21 [History] Triamterene/Hydrochlorothiazid [Triamterene-Hctz 37.5-25 mg Tb] 1 tab PO DAILY 10/24/21 [History] Hx Tetanus, Diphtheria Vaccination/Date Given: Yes Hx Influenza Vaccination/Date Given: Yes Hx Pneumococcal Vaccination/Date Given: Yes Immunizations Up to Date: Yes Travel Risk - International Travel Have you traveled outside of the country in past 3 weeks: No - Coronavirus Screening Are you exhibiting any of the following symptoms?: Yes Symptoms: Shortness of Breath Close contact with a COVID-19 positive Pt in past 14-21 Days: No - Vaccine Status Have you recieved a Covid-19 vaccination: Yes 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: [employer] - Vaccination Dates Date of 2cond Vaccination (if applicable): Didn't get - Review of Systems Constitutional: No Symptoms, No Fever, No Chills Eyes: No Symptoms Ears, Nose, & Throat: No Symptoms Respiratory: No Symptoms, No Cough, No Dyspnea Cardiac: No Symptoms, No Chest Pain, No Edema, No Syncope Abdominal/Gastrointestinal: No Symptoms, No Abdominal Pain, No Nausea, No Vomiting, No Diarrhea Genitourinary Symptoms: No Symptoms, No Dysuria Musculoskeletal: No Symptoms, No Back Pain, No Neck Pain Skin: No Symptoms, No Rash Neurological: No Symptoms, No Dizziness, No Focal Weakness, No Sensory Changes Psychological: No Symptoms Endocrine: No Symptoms Hematologic/Lymphatic: No Symptoms Immunological/Allergic: No Symptoms All Other Systems: Reviewed and Negative - Past Medical History Pertinent Past Medical History: Yes Neurological History: No Pertinent History ENT History: No Pertinent History Cardiac History: High Cholesterol, Hypertension, Myocardial Infarction (CT) Respiratory History: No Pertinent History Endocrine Medical History: Hypoglycemia Musculoskeletal History: Fractures GI Medical History: Ulcer History: No Pertinent History Psycho-Social History: Anxiety, Depression Female Reproductive Disorders: No Pertinent History Other Medical History: Sleep apnea, "hardened heart muscle", kidney cysts - Past Surgical History Past Surgical History: Yes Neuro Surgical History: No Pertinent History Cardiac: Cardiac Catheterization Respiratory: No Pertinent History Gastrointestinal: Appendectomy Genitourinary: No Pertinent History Musculoskeletal: Orthopedic Surgery Female Surgical History: Hysterectomy - Social History Smoking Status: Never smoker Exposure to second hand smoke: No Drug Use: none Patient Lives Alone: Yes - Nursing Vital Signs Nursing Vital Signs: Initial Vital Signs Temperature 98.3 F 12/27/21 18:40 Pulse Rate 82 12/27/21 18:40 Respiratory Rate 27 H 12/27/21 18:40 Blood Pressure 144/102 12/27/21 18:40 O2 Sat by Pulse Oximetry 98 12/27/21 18:40 Pain Scale Pain Intensity 2 - Physical Exam General Appearance: no apparent distress, alert Eye Exam: PERRL/EOMI, eyes nml inspection Ears, Nose, Throat Exam: normal ENT inspection, TMs normal, pharynx normal, moist mucous membranes Neck Exam: normal inspection, non-tender, supple, full range of motion Respiratory Exam: normal breath sounds, lungs clear, airway intact, No respiratory distress Cardiovascular Exam: regular rate/rhythm, normal heart sounds, normal peripheral pulses Gastrointestinal/Abdomen Exam: soft, normal bowel sounds, No tenderness, No mass Back Exam: normal inspection, normal range of motion, No CVA tenderness, No vertebral tenderness Extremity Exam: normal inspection, normal range of motion, pelvis stable Neurologic Exam: alert, oriented x 3, cooperative, normal mood/affect, nml cerebellar function, nml station & gait, sensation nml, No motor deficits Skin Exam: normal color, warm, dry, No rash Lymphatic Exam: No adenopathy SpO2 Interpretation: normal SpO2: 98 O2 Delivery: Room Air - Course Nursing assessment & vital signs reviewed: Yes EKG Interpreted by Me: RATE (80), Sinus Rhythm, NORMAL AXIS, NORMAL INTERVALS - CT Exams Chest CT Interpretation: Tele-radiologist Report (Continued negative PE compared to 10/24/2021. Stable small hiatal hernia. No new acute findings) - Radiology Ultrasound Exam Venous Lower Extremity Ultrasound: tele radiology report (biLateral lower extremity negative for DVT) Ordered Tests: Active Orders 24 hr Category Date Time Status Registered Occupational Therapist STAT Care 12/27/21 18:54 Active Cath for Residual-In & Out STAT Care 12/27/21 18:54 Active IV Insertion STAT Care 12/27/21 18:53 Active Pulse Oximetry (ED) STAT Care 12/27/21 18:53 Active CHEST WITH CONTRAST [CT] Stat Exams 12/27/21 21:23 Taken VENOUS BILATERAL EXTREMITY [US] Stat Exams 12/27/21 20:17 Taken CBC W DIFF Stat Lab 12/27/21 19:07 Completed CMP Stat Lab 12/27/21 19:07 Completed D-DIMER QUANTITATIVE Stat Lab 12/27/21 19:07 Completed NT PRO BNP Stat Lab 12/27/21 19:07 Completed TROPONIN Q4H Lab 12/27/21 19:07 Completed TROPONIN Q4H Lab 12/27/21 22:20 Received TROPONIN Q4H Lab 12/28/21 03:00 Ordered UA W/RFX CULTURE Stat Lab 12/27/21 19:28 Completed Transfer Order Routine Transfer 12/27/21 Ordered Lab/Rad Data: Laboratory Result Diagrams 12/27/21 19:07 12/27/21 19:07 Laboratory Results 12/27/21 12/27/21 12/27/21 Range/Units 19:28 19:07 19:07 WBC (4.0-10.5) x10^3/uL RBC (4.1-5.4) x10^6/uL Hgb (12.0-16.0) g/dL Hct (35-47) % MCV (78-100) fL MCH (26-32) pg MCHC (32-36) g/dL RDW (11.5-14.0) % Plt Count (150-450) x10^3/uL MPV (7.5-11.0) fL Gran % (36.0-66.0) % Immature Gran % (Auto) (0.00-0.4) % Nucleat RBC Rel Count (0.00-0.1) % Eos # (Auto) (0-0.5) x10^3/uL Immature Gran # (Auto) (0.00-0.03) x10^3u/L Absolute Lymphs (auto) (1.0-4.6) x10^3/uL Absolute Monos (auto) (0.0-1.3) x10^3/uL Absolute Nucleated RBC (0.00-0.01) x10^3u/L Lymphocytes % (24.0-44.0) % Monocytes % (0.0-12.0) % Eosinophils % (0.00-5.0) % Basophils % (0.0-0.4) % Absolute Granulocytes (1.4-6.9) x10^3/uL Basophils # (0-0.4) x10^3/uL D-Dimer 0.94 H* (0.0-0.50) mg/L Sodium (137-145) mmol/L Potassium (3.5-5.1) mmol/L Chloride (98-107) mmol/L Carbon Dioxide (22-30) mmol/L Anion Gap (5-15) MEQ/L BUN (7-17) mg/dL Creatinine (0.52-1.04) mg/dL Estimated GFR ML/MIN Glucose (74-106) mg/dL Calcium (8.4-10.2) mg/dL Total Bilirubin (0.2-1.3) mg/dL AST (14-36) U/L ALT (0-35) U/L Alkaline Phosphatase (38-126) U/L Troponin I < 0.012 (0.000-0.034) ng/mL NT-Pro-B Natriuret Pep (0-900) pg/mL Serum Total Protein (6.3-8.2) g/dL Albumin (3.5-5.0) g/dL Urinalys Dipstick Clnc MAIN LAB Urine Color YELLOW (YELLOW) Urine Appearance CLEAR (CLEAR) Urine pH 5.5 (5-6) Ur Specific [place] 1.015 (1.005-1.025) POC Urine Protein Conf NEGATIVE (Negative) Urine Ketones NEGATIVE (NEGATIVE) Urine Nitrite NEGATIVE (NEGATIVE) Urine Bilirubin NEGATIVE (NEGATIVE) Urine Urobilinogen 0.2 (0-1) mg/dL Urine Leukocytes NEGATIVE (NEGATIVE) Urine WBC (Auto) NONE (0-5) /HPF Urine RBC (Auto) NONE (0-2) /HPF U Epithel Cells (Auto) NONE (FEW) /HPF Urine Bacteria (Auto) NONE (NEGATIVE) /HPF Urine RBC NEGATIVE (0-5) Anshul/ul Ur Culture Indicated? NO Urine Glucose NEGATIVE (NEGATIVE) mg/dL Influenza Type A Ag (NEGATIVE) Influenza Type B Ag (NEGATIVE) RSV (PCR) (Negative) SARS-CoV-2 (PCR) (NEGATIVE) 12/27/21 12/27/21 12/27/21 Range/Units 19:07 19:07 19:00 WBC 8.5 (4.0-10.5) x10^3/uL RBC 4.24 (4.1-5.4) x10^6/uL Hgb 12.8 (12.0-16.0) g/dL Hct 39.1 (35-47) % MCV 92.2 (78-100) fL MCH 30.2 (26-32) pg MCHC 32.7 (32-36) g/dL RDW 14.5 H (11.5-14.0) % Plt Count 260 (150-450) x10^3/uL MPV 10.4 (7.5-11.0) fL Gran % 57.6 (36.0-66.0) % Immature Gran % (Auto) 0.4 (0.00-0.4) % Nucleat RBC Rel Count 0.0 (0.00-0.1) % Eos # (Auto) 0.19 (0-0.5) x10^3/uL Immature Gran # (Auto) 0.03 (0.00-0.03) x10^3u/L Absolute Lymphs (auto) 2.66 (1.0-4.6) x10^3/uL Absolute Monos (auto) 0.67 (0.0-1.3) x10^3/uL Absolute Nucleated RBC 0.00 (0.00-0.01) x10^3u/L Lymphocytes % 31.3 (24.0-44.0) % Monocytes % 7.9 (0.0-12.0) % Eosinophils % 2.2 (0.00-5.0) % Basophils % 0.6 (0.0-0.4) % Absolute Granulocytes 4.91 (1.4-6.9) x10^3/uL Basophils # 0.05 (0-0.4) x10^3/uL D-Dimer (0.0-0.50) mg/L Sodium 142 (137-145) mmol/L Potassium 4.0 (3.5-5.1) mmol/L Chloride 106 (98-107) mmol/L Carbon Dioxide 26 (22-30) mmol/L Anion Gap 13.5 (5-15) MEQ/L BUN 22 H (7-17) mg/dL Creatinine 1.08 H (0.52-1.04) mg/dL Estimated GFR 54.5 ML/MIN Glucose 103 (74-106) mg/dL Calcium 9.1 (8.4-10.2) mg/dL Total Bilirubin 0.80 (0.2-1.3) mg/dL AST 24 (14-36) U/L ALT 22 (0-35) U/L Alkaline Phosphatase 122 (38-126) U/L Troponin I (0.000-0.034) ng/mL NT-Pro-B Natriuret Pep 98.6 (0-900) pg/mL Serum Total Protein 7.6 (6.3-8.2) g/dL Albumin 4.2 (3.5-5.0) g/dL Urinalys Dipstick Clnc Urine Color (YELLOW) Urine Appearance (CLEAR) Urine pH (5-6) Ur Specific [place] (1.005-1.025) POC Urine Protein Conf (Negative) Urine Ketones (NEGATIVE) Urine Nitrite (NEGATIVE) Urine Bilirubin (NEGATIVE) Urine Urobilinogen (0-1) mg/dL Urine Leukocytes (NEGATIVE) Urine WBC (Auto) (0-5) /HPF Urine RBC (Auto) (0-2) /HPF U Epithel Cells (Auto) (FEW) /HPF Urine Bacteria (Auto) (NEGATIVE) /HPF Urine RBC (0-5) Anshul/ul Ur Culture Indicated? Urine Glucose (NEGATIVE) mg/dL Influenza Type A Ag NEGATIVE (NEGATIVE) Influenza Type B Ag NEGATIVE (NEGATIVE) RSV (PCR) NEGATIVE (Negative) SARS-CoV-2 (PCR) NEGATIVE (NEGATIVE) - Progress Progress: improved Progress Note: 61-year-old female presents to our ED with complaints of chest pain and nausea. Patient also complains of calf pain. She has a history of CT 2 years ago. Patient has a history of history of DVT PE. D-dimer positive. Venous Doppler bilateral lower extremities negative for DVT. CTA chest negative for PE. Patient received a dose of aspirin and nitro glycerin in our ED. Initial troponin negative. In light of patient's past medical history/cardiovascular risk factors patient will be admitted for cardiac rule out. Case discussed with Dr. Garcia accepts admission to observation. Plan of care discussed with patient. She agrees to admission [facility] for further evaluation and treatment. COVID test negative Portions of this note were created with voice recognition technology. There may be grammatical, spelling, punctuation or sound alike errors 12/27/21 22:41 Counseled pt/family regarding: lab results, diagnosis, rad results - Departure Departure Disposition: Observation Clinical Impression: ACS (acute coronary syndrome), Chest pain Condition: Stable Critical Care Time: No Referrals: ZENAIDA DANGELO [facility] [Primary Care Provider] - Follow up/PCP as directed
[2021-12-27] MEDS ORDERED: NITRO-BID 2% UD PACKETS TOP ONE (22:42)
[2021-12-27] MEDS ORDERED: BABY ASPIRIN 81 MG CHEW PO ONE (22:42)
[2021-12-27] MEDS ORDERED: NITRO-BID 2% UD PACKETS ONE (22:44)
[2021-12-27] MEDS ORDERED: BABY ASPIRIN 81 MG CHEW ONE (22:44)
[2021-12-27] MEDS ORDERED: TYLENOL 325 MG PO PRN (23:15)
[2021-12-27] MEDS ORDERED: MILK OF MAGNESIA 30 ML PO PRN (23:15)
[2021-12-27] MEDS ORDERED: Senokot-S Tablet PO PRN (23:15)
[2021-12-27] MEDS ORDERED: MAALOX ES 30 ML UNIT DOSE PO PRN (23:15)
[2021-12-27] MEDS ORDERED: Zofran 4 MG/2 ML VIAL IV PRN (23:15)
[2021-12-28] MEDS ORDERED: VENTOLIN COMMON CANISTER IH PRN (00:43)
[2021-12-28] MEDS ORDERED: DUONEB 0.5-3 MG/3 ml Neb IH PRN (00:44)
[2021-12-28 06:58] LABS: Risk Ratio 2.9
[2021-12-28] MEDS: Advair Hfa 230/21 Mcg COMMON CANISTER IH SCH ×2 (07:19→19:29)
[2021-12-28] MEDS ORDERED: Nitrostat 0.4 MG Tablet SL PRN ×2 (08:33→08:41)
--- NOTE | 2021-12-28 08:40 | XRAY ---
Indication: Short of breath. Elevated d-dimer. Baby aspirin therapy. Multiple contiguous axial images obtained through the chest using 80 cc Isovue 370 contrast and PE protocol. Comparison: October 24, 2021 Adequate opacification of the pulmonary arteries to include the lobar and segmental branches. No pulmonary embolus. Heart is not enlarged. Aorta is normal in course and caliber. No pathologic mediastinal/hilar lymphadenopathy. Again small hiatal hernia. Lungs inflated and clear of pulmonary mass, infiltrate, or effusion. Bony thorax intact again with mild degenerative changes throughout the spine. Limited upper abdomen again demonstrates fatty liver. Impression: 1. Continued negative pulmonary embolus. No new/acute cardiopulmonary abnormalities. 2. Again chronic findings including small hiatal hernia, degenerative spondylosis, and fatty liver.
[2021-12-28] MEDS ORDERED: LASIX 20 MG PO PRN (08:41)
[2021-12-28] MEDS ORDERED: ULTRAM 50 MG PO PRN (08:41)
--- NOTE | 2021-12-28 08:42 | XRAY ---
Indication: Pain. Two-dimensional sonogram and color Doppler imaging of the major venous vessels of the left and right leg performed. Comparison: None No thrombus seen in the examined deep venous vessels of the left and right leg including greater saphenous vein. Veins demonstrate normal compressibility. Venous waveforms are normal with and without augmentation. Impression: Left and right legs negative for DVT. Comment: Preliminary report was given.
[2021-12-28] MEDS ORDERED: ECOTRIN 81 MG PO SCH (10:00)
[2021-12-28] MEDS ORDERED: Maxzide-25MG Tablet PO SCH (10:00)
[2021-12-28] MEDS ORDERED: NON-FORMULARY ITEM (Losartan Potassium [Cozaar] 100 MG Tablet) PO SCH (10:00)
[2021-12-28] MEDS ORDERED: Ranexa 500 MG PO SCH ×2 (10:00→22:00)
[2021-12-28] MEDS ORDERED: PROTONIX 40 MG IV IV SCH (10:00)
[2021-12-28] MEDS ORDERED: NORVASC 5 MG PO SCH (10:00)
[2021-12-28] MEDS ORDERED: Cozaar 50 MG PO SCH (10:00)
[2021-12-28 13:54] LABS: MAGNESIUM 2.2 mg/dL (1.6-2.3); TROPONIN < 0.012 ng/mL (0.000-0.034)
[2021-12-28 17:01] VITALS: O2SAT 97
[2021-12-28 20:11] VITALS: BP 135/69; PULSE 61
--- NOTE | 2021-12-28 21:58 | XRAY ---
Indication: Chronic abdomen pain. Mesenteric artery stenosis. Conventional contrast enhanced CTA abdomen/pelvis performed using 100 cc Isovue 370 contrast. Two-dimensional sagittal and coronal reformatted images obtained. Additional 3-dimensional reformatted images obtained using a separate workstation. Comparison: Conventional CT abdomen/pelvis with contrast exam December 25, 2019. CT chest with contrast reported one day earlier. Abdominal aorta again demonstrates demonstrates minimal arteriosclerotic calcifications without aneurysm/dissection. Again minimal punctate calcification at the origin of the celiac and superior mesenteric arteries without critical stenosis or poststenotic dilatation. Superior mesenteric and inferior mesenteric arteries again normal in CTA appearance. Again 2 left and 2 right main renal arteries without critical stenosis, obstruction, or AV malformation. Visualized iliac arteries again demonstrates mild scattered arteriosclerotic calcifications bilaterally without critical stenosis or obstruction. Noncontrasted stomach and bowel loops remain nonobstructed again with scattered colonic diverticulosis. No free fluid/air. Again appendectomy, hysterectomy, fatty liver, and bilateral renal parapelvic cysts. No free fluid/air. Remaining liver, gallbladder, pancreas, spleen, adrenal glands, kidneys, ureters, and bladder are unremarkable. No pathologic retroperitoneal lymphadenopathy. Osseous structures intact again with mild degenerative changes throughout the thoracolumbar spine. Impression: 1. Minimal/mild scattered aortoiliac calcifications without aneurysm/dissection. Minimal calcification origin celiac and superior mesenteric arteries without critical stenosis/obstruction. Remaining CTA abdomen/pelvis is negative. 2. Again chronic CT findings including colonic diverticulosis, fatty liver, bilateral renal cysts, and degenerative spondylosis.
[2021-12-28] MEDS ORDERED: LIPITOR 40MG PO SCH (22:00)
[2021-12-28] MEDS ORDERED: ZOCOR 20MG PO SCH (22:00)
--- NOTE | 2022-01-03 06:52 | PCM.SSS ---
History of Present Illness - Chief Complaint Chief Complaint: ACS, Chest pain Date: 12/28/21 History of Present Illness: is a 61 year old female. Pt. presented to ER with nausea and chest pain, onset a couple of hours prior to presentation, pt. with no other symptoms, placed in observation for further evaluation. - Review of Systems Constitutional: No Fever, No Chills Eyes: No Symptoms Ears, Nose, & Throat: No Symptoms Respiratory: No Cough, No Short Of Breath Cardiac: Chest Pain, No Edema, No Syncope Abdominal/Gastrointestinal: Nausea, No Abdominal Pain, No Vomiting, No Diarrhea Genitourinary Symptoms: No Dysuria Musculoskeletal: No Back Pain, No Neck Pain Skin: No Rash Neurological: No Dizziness, No Focal Weakness, No Sensory Changes Psychological: No Symptoms Endocrine: No Symptoms Hematologic/Lymphatic: No Symptoms Immunological/Allergic: No Symptoms Medications & Allergies Home Medications: Home Medication List Losartan Potassium [Cozaar] 100 mg PO DAILY 10/29/19 [History Confirmed 12/28/21] Amlodipine Besylate 5 mg [Norvasc 5 mg] 5 mg PO DAILY 11/26/19 [History Confirmed 12/28/21] Nitroglycerin 0.4 mg Tablet [Nitrostat 0.4 MG Tablet] 0.4 mg SL Q5MIN PRN MR X 3 PRN 12/25/19 [History Confirmed 12/28/21] Atorvastatin Calcium 40 mg PO HS 10/24/21 [History Confirmed 12/28/21] Furosemide 20 mg [Lasix 20 mg] 20 mg PO DAILY PRN PRN 10/24/21 [History Confirmed 12/28/21] Ranolazine [Ranolazine ER] 1,000 mg PO QAM 10/24/21 [History Confirmed 12/28/21] Tramadol HCl 50 mg [Ultram 50 mg] 50 mg PO TID PRN PRN 10/24/21 [History Confirmed 12/28/21] Triamterene/Hydrochlorothiazid [Triamterene-Hctz 37.5-25 mg Tb] 1 tab PO DAILY 10/24/21 [History Confirmed 12/28/21] Aspirin [Low Dose Aspirin EC] 81 mg PO DAILY 12/28/21 [History Confirmed 12/28/21] Omeprazole 40 mg PO DAILY #30 cap 12/28/21 [Rx] Ranolazine 500 MG [Ranexa 500 MG] 500 mg PO HS 12/28/21 [History Confirmed 12/28/21] Allergies/Adverse Reactions: Allergies Allergy/AdvReac Type Severity Reaction Status Date / Time No Known Drug Allergies Allergy Verified 12/27/21 18:38 - Past Medical History Past Medical History: Yes Neurological History: No Pertinent History ENT History: Glaucoma Cardiac History: High Cholesterol, Hypertension, Myocardial Infarction ([place]) Respiratory History: No Pertinent History Endocrine Medical History: Hypoglycemia Musculoskelatal History: Fractures GI Medical History: Ulcer History: Other Pyscho-Social History: Anxiety, Depression Reproductive Disorders: No Pertinent History Comment: Sleep apnea, "hardened heart muscle", kidney cysts - Female History Are you now?: No - Past Surgical History Past Surgical History: Yes Neuro Surgical History: No Pertinent History Cardiac History: Cardiac Catheterization Respiratory Surgery: No Pertinent History GI Surgical History: Appendectomy Genitourinary Surgical Hx: No Pertinent History Musculskeletal Surgical Hx: Orthopedic Surgery Female Surgical History: Hysterectomy - Social History Smoking Status: Never smoker Exposure to second hand smoke: No Alcohol: None Drug Use: none - Physical Exam General Appearance: no apparent distress, alert Neurologic Exam: alert, oriented x 3, cooperative, normal mood/affect, nml cerebellar function, nml station & gait, sensation nml, No motor deficits Eye Exam: PERRL/EOMI, eyes nml inspection Ears, Nose, Throat Exam: normal ENT inspection, pharynx normal, moist mucous membranes Neck Exam: normal inspection, non-tender, supple, full range of motion Respiratory Exam: normal breath sounds, lungs clear, No respiratory distress Cardiovascular Exam: regular rate/rhythm, normal heart sounds, normal peripheral pulses Gastrointestinal/Abdomen Exam: soft, normal bowel sounds, No tenderness, No mass Back Exam: normal inspection, normal range of motion, No CVA tenderness, No vertebral tenderness Extremity Exam: normal inspection, normal range of motion, pelvis stable Skin Exam: normal color, warm, dry, No rash Lymphatic Exam: No adenopathy Assessment/Plan (1) Chest pain Status: Acute Code(s): R07.9 - CHEST PAIN, UNSPECIFIED Hospital Summary - Hospital Course Hospital Course: Pt. admitted for chest pain, cardiac markers were negative and symptoms resolved, pt. will be discharged to home with cardiac stress test to be sched uled outpatient. - Vitals & Intake/Output Vital Signs: Vital Signs Temperature 98.1 F 12/28/21 20:08 Pulse Rate 61 12/28/21 20:08 Respiratory Rate 18 12/28/21 20:08 Blood Pressure 135/69 12/28/21 20:08 O2 Sat by Pulse Oximetry 97 12/28/21 20:08 - Lab Result Diagrams: 12/27/21 19:07 12/27/21 19:07 - Procedures and Test Procedures and Tests throughout Hospitalization: Therapy Orders & Screens 12/27/21 23:15 EKG Q8HX2,QAMX3,PRN Comment: 12/28/21 00:14 RT Screen per Nursing Assess ONCE Comment: Protocol Order Physician Instructions: Greater than 3 points order RT Admission Screen Reason For Exam: Triggered on Admission Diagnosis: ACS, Chest pain Diagnosis: ACS, Chest pain Pneumonia: No Home O2: No Asthma: Yes CHF: No Home CPAP/BIPAP: Yes Home Nebs/MDI: No Total Points: 9 12/28/21 00:42 Respiratory Therapy Assessment DAILY Comment: Diagnosis: ACS, Chest pain 12/28/21 00:45 BiPap/CPAP ROUTINE Comment: Diagnosis: ACS, Chest pain 12/28/21 02:39 EKG ROUTINE Comment: Diagnosis: ACS, Chest pain 12/29/21 05:00 EKG DAILY Comment: Diagnosis: ACS, Chest pain 12/30/21 05:00 EKG DAILY Comment: Diagnosis: ACS, Chest pain 12/31/21 05:00 EKG DAILY Comment: Diagnosis: ACS, Chest pain - Discharge Discharge Date: 12/28/21 Disposition: Home, Self-Care Condition: Stable Prescriptions: New Omeprazole 40 mg PO DAILY #30 cap Continue Losartan Potassium [Cozaar] 100 mg PO DAILY Amlodipine Besylate 5 mg [Norvasc 5 mg] 5 mg PO DAILY Nitroglycerin 0.4 mg Tablet [Nitrostat 0.4 MG Tablet] 0.4 mg SL Q5MIN PRN MR X 3 PRN PRN Reason: Chest Pain Tramadol HCl 50 mg [Ultram 50 mg] 50 mg PO TID PRN PRN PRN Reason: Pain Ranolazine [Ranolazine ER] 1,000 mg PO QAM Furosemide 20 mg [Lasix 20 mg] 20 mg PO DAILY PRN PRN PRN Reason: edema Atorvastatin Calcium 40 mg PO HS Triamterene/Hydrochlorothiazid [Triamterene-Hctz 37.5-25 mg Tb] 1 tab PO DAILY Aspirin [Low Dose Aspirin EC] 81 mg PO DAILY Ranolazine 500 MG [Ranexa 500 MG] 500 mg PO HS Instructions: Chest Pain (DC) Follow up with: ZENAIDA DANGELO NP [Primary Care Provider] - 01/03/22 11:00 am Forms: Discharge Instructions
== END 2021-12-28 22:32 | disposition home or self-care (01) ==
LOC: ED 18:34 → MED SURG 23:12
PROVIDERS: ADMIT Family Medicine; ATTEND Family Medicine
DX: R07.9 Chest pain, unspecified (principal); R11.0 Nausea; M79.669 Pain in unspecified lower leg; I10 Essential (primary) hypertension; E78.00 Pure hypercholesterolemia, unspecified; I25.2 Old myocardial infarction; Z79.899 Other long term (current) drug therapy; Z20.828 Contact with and (suspected) exposure to other viral communicable diseases
CPT/HCPCS: 0241U; 36000; 36415; 51701; 71260; 74174; 80053; 80061; 81015; 83721; 83735; 83880; 84484; 85025; 85379; 93005; 93041; 93268; 93970; 94640; 94660; 94760; 99285; G0378; A9270-GY

== ENCOUNTER 2022-02-23 12:58 | Emergency (ER) | payer OTHER ==
[2022-02-23 13:23] VITALS: O2SAT 97
[2022-02-23] MEDS ORDERED: solu-MEDROL 125 MG, Sterile H2O 10 ml 2 ML IV ONE ×2 (13:47)
--- NOTE | 2022-02-23 13:51 | ERPHSYRPT ---
- History of Present Illness Time Seen by Provider: 02/23/22 12:58 Source: patient Exam Limitations: no limitations Patient Subjective Stated Complaint: pt here for cough, and sob off and on since friday, she was dx wih covid and has antiboitc,nebs and inhaler at home Triage Nursing Assessment: pt alert, walked in, resp easy at rest, able to undr ess self, skin w/d/p. abd soft, no edema noted, chest clear Physician History: 61 years old female with history of hypertension, hyperlipidemia, asthma, CAD without stenting presented in the ER with chief complaint of cough and congestion for 1 week. Patient reported it started as a URI and gradually got down with initially dry hacking cough and now having some clear mucus production. She is having bouts of coughing. She was seen outpatient with a positive COVID-19, was given Rocephin shot and placed on doxycycline and benzonatate with no significant relief. Patient feels weak fatigued tired and dehydrated. No vomiting or diarrhea reported. No abdominal pain but does have some generalized body aches and lack of energy. Timing/Duration: week(s) (1), gradual onset, worse Cough Quality/Degree: moderate, dry cough, productive cough Possible Cause: illness exposure Modifying Factors: Improves With: albuterol inhaler, albuterol nebulizer. Worsens With: coughing Associated Symptoms: chest pain/soreness, cough, headache, nasal congestion, sore throat, No shortness of breath Allergies/Adverse Reactions: hydromorphone [From Dilaudid] Allergy (Verified 02/23/22 13:23) morphine Allergy (Verified 02/23/22 13:23) Sulfa (Sulfonamide Antibiotics) Allergy (Verified 02/23/22 13:23) Beta-Blockers (Beta-Adrenergic Bloc Adverse Reaction (Verified 02/23/22 13:23) bupropion [From Wellbutrin] Adverse Reaction (Verified 02/23/22 13:23) Home Medications: Losartan Potassium [Cozaar] 100 mg PO DAILY 10/29/19 [History] Amlodipine Besylate 5 mg [Norvasc 5 mg] 5 mg PO DAILY 11/26/19 [History] Nitroglycerin 0.4 mg Tablet [Nitrostat 0.4 MG Tablet] 0.4 mg SL Q5MIN PRN MR X 3 PRN 12/25/19 [History] Atorvastatin Calcium 40 mg PO HS 10/24/21 [History] Furosemide 20 mg [Lasix 20 mg] 20 mg PO DAILY PRN PRN 10/24/21 [History] Ranolazine [Ranolazine ER] 1,000 mg PO QAM 10/24/21 [History] Triamterene/Hydrochlorothiazid [Triamterene-Hctz 37.5-25 mg Tb] 1 tab PO DAILY 10/24/21 [History] Aspirin [Low Dose Aspirin EC] 81 mg PO DAILY 12/28/21 [History] Ranolazine 500 MG [Ranexa 500 MG] 500 mg PO HS 12/28/21 [History] ALPRAZolam [Alprazolam] 0.5 mg PO DAILY 02/23/22 [History] Benzonatate 100 mg PO TID 02/23/22 [History] Doxycycline Hyclate 100 mg [Vibramycin 100 MG] 100 mg PO BID 02/23/22 [History] Doxycycline Hyclate 100 mg [Vibramycin 100 mg] 1 ea DAILY 02/23/22 [History] Ipratropium/Albuterol Sulfate [Iprat-Albut 0.5-3(2.5) mg/3 ml] 3 ml IH TID 02/23/22 [History] Hx Tetanus, Diphtheria Vaccination/Date Given: Yes Hx Influenza Vaccination/Date Given: Yes Hx Pneumococcal Vaccination/Date Given: Yes Immunizations Up to Date: Yes Travel Risk - International Travel Have you traveled outside of the country in past 3 weeks: No - Coronavirus Screening Are you exhibiting any of the following symptoms?: Yes Symptoms: Cough: New Onset, Shortness of Breath - Vaccine Status Have you recieved a Covid-19 vaccination: Yes 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[employer] - Vaccination Dates Date of 2cond Vaccination (if applicable): 2021 - Review of Systems Constitutional: Fatigue, Weakness Eyes: No Symptoms Ears, Nose, & Throat: Nose Congestion Respiratory: Cough Cardiac: Chest Pain Abdominal/Gastrointestinal: No Symptoms Genitourinary Symptoms: No Symptoms Musculoskeletal: Myalgias Skin: No Symptoms Neurological: Headache Psychological: No Symptoms Endocrine: No Symptoms Hematologic/Lymphatic: No Symptoms Immunological/Allergic: No Symptoms - Past Medical History Pertinent Past Medical History: Yes Neurological History: No Pertinent History ENT History: Glaucoma Cardiac History: High Cholesterol, Hypertension, Myocardial Infarction ([place]) Respiratory History: No Pertinent History Endocrine Medical History: Hypoglycemia Musculoskeletal History: Fractures GI Medical History: Ulcer History: Other Psycho-Social History: Anxiety, Depression Female Reproductive Disorders: No Pertinent History Other Medical History: Sleep apnea, "hardened heart muscle", kidney cysts - Past Surgical History Past Surgical History: Yes Neuro Surgical History: No Pertinent History Cardiac: Cardiac Catheterization Respiratory: No Pertinent History Gastrointestinal: Appendectomy Genitourinary: No Pertinent History Musculoskeletal: Orthopedic Surgery Female Surgical History: Hysterectomy - Social History Smoking Status: Never smoker Exposure to second hand smoke: No Drug Use: none Patient Lives Alone: Yes - Nursing Vital Signs Nursing Vital Signs: Initial Vital Signs Temperature 98.1 F 02/23/22 13:16 Pulse Rate 81 02/23/22 13:16 Respiratory Rate 18 02/23/22 13:16 Blood Pressure 121/67 02/23/22 13:16 O2 Sat by Pulse Oximetry 98 02/23/22 13:16 Pain Scale Pain Intensity 4 - Physical Exam General Appearance: no apparent distress, alert Eye Exam: PERRL/EOMI, eyes nml inspection Ears, Nose, Throat Exam: normal ENT inspection, TMs normal, pharynx normal, moist mucous membranes Neck Exam: normal inspection, non-tender, supple, full range of motion Respiratory Exam: normal breath sounds, lungs clear Cardiovascular Exam: regular rate/rhythm, normal heart sounds Gastrointestinal/Abdomen Exam: soft, normal bowel sounds, No tenderness Back Exam: normal inspection, normal range of motion Extremity Exam: normal inspection, normal range of motion Neurologic Exam: alert, oriented x 3, cooperative, behavior therapist II-XII nml as tested Skin Exam: normal color SpO2 Interpretation: normal SpO2: 97 O2 Delivery: Room Air Ordered Tests: Active Orders 24 hr Category Date Time Status Grid Casting Machine Operator Helper STAT Care 02/23/22 13:48 Active IV Insertion STAT Care 02/23/22 13:47 Active CHEST 1 VIEW (PORTABLE) Stat Exams 02/23/22 13:48 Taken BLOOD CULTURE Stat Lab 02/23/22 14:15 Received CBC W DIFF Stat Lab 02/23/22 13:47 Completed CMP Stat Lab 02/23/22 14:05 Completed Lactic Acid Stat Lab 02/23/22 14:05 Completed MAGNESIUM Stat Lab 02/23/22 14:05 Completed TROPONIN Q4H Lab 02/23/22 14:05 Completed TROPONIN Q4H Lab 02/23/22 18:00 Ordered TROPONIN Q4H Lab 02/23/22 22:00 Ordered Medication Summary Discontinued Medications Generic Name Dose Route Start Last Admin Trade Name Isha PRN Reason Stop Dose Admin Methylprednisolone Sodium 0 mg 02/23/22 13:47 02/23/22 14:17 Succinate 125 mg/ Sterile IV 02/23/22 13:48 125 mg Water 2 ml STAT ONE Administration Methylprednisolone Sodium Succinate Confirm 02/23/22 14:17 Methylprednis Sod Succ 125 Mg/2 Ml Vial Administered 02/23/22 14:18 Dose 125 mg .ROUTE .STK-MED ONE Sterile Water Confirm 02/23/22 14:17 Water For Injection,Sterile 10 Ml Vial Administered 02/23/22 14:18 Dose 10 ml IJ .STK-MED ONE Lab/Rad Data: Laboratory Result Diagrams 02/23/22 13:47 02/23/22 14:05 Laboratory Results 02/23/22 02/23/22 02/23/22 Range/Units 14:05 14:05 14:05 WBC (4.0-10.5) x10^3/uL RBC (4.1-5.4) x10^6/uL Hgb (12.0-16.0) g/dL Hct (35-47) % MCV (78-100) fL MCH (26-32) pg MCHC (32-36) g/dL RDW (11.5-14.0) % Plt Count (150-450) x10^3/uL MPV (7.5-11.0) fL Gran % (36.0-66.0) % Immature Gran % (Auto) (0.00-0.4) % Nucleat RBC Rel Count (0.00-0.1) % Eos # (Auto) (0-0.5) x10^3/uL Immature Gran # (Auto) (0.00-0.03) x10^3u/L Absolute Lymphs (auto) (1.0-4.6) x10^3/uL Absolute Monos (auto) (0.0-1.3) x10^3/uL Absolute Nucleated RBC (0.00-0.01) x10^3u/L Lymphocytes % (24.0-44.0) % Monocytes % (0.0-12.0) % Eosinophils % (0.00-5.0) % Basophils % (0.0-0.4) % Absolute Granulocytes (1.4-6.9) x10^3/uL Basophils # (0-0.4) x10^3/uL Sodium 139 (137-145) mmol/L Potassium 4.6 (3.5-5.1) mmol/L Chloride 104 (98-107) mmol/L Carbon Dioxide 27 (22-30) mmol/L Anion Gap 12.6 (5-15) MEQ/L BUN 27 H (7-17) mg/dL Creatinine 1.13 H (0.52-1.04) mg/dL Estimated GFR 51.7 ML/MIN Glucose 101 (74-106) mg/dL Lactic Acid 1.1 (0.4-2.0) Calcium 9.1 (8.4-10.2) mg/dL Magnesium 2.0 (1.6-2.3) mg/dL Total Bilirubin 0.70 (0.2-1.3) mg/dL AST 26 (14-36) U/L ALT 21 (0-35) U/L Alkaline Phosphatase 123 (38-126) U/L Troponin I < 0.012 (0.000-0.034) ng/mL Serum Total Protein 7.7 (6.3-8.2) g/dL Albumin 4.1 (3.5-5.0) g/dL 02/23/22 Range/Units 13:47 WBC 6.8 (4.0-10.5) x10^3/uL RBC 4.15 (4.1-5.4) x10^6/uL Hgb 12.4 (12.0-16.0) g/dL Hct 39.2 (35-47) % MCV 94.5 (78-100) fL MCH 29.9 (26-32) pg MCHC 31.6 L (32-36) g/dL RDW 13.8 (11.5-14.0) % Plt Count 258 (150-450) x10^3/uL MPV 10.6 (7.5-11.0) fL Gran % 65.0 (36.0-66.0) % Immature Gran % (Auto) 0.3 (0.00-0.4) % Nucleat RBC Rel Count 0.0 (0.00-0.1) % Eos # (Auto) 0.12 (0-0.5) x10^3/uL Immature Gran # (Auto) 0.02 (0.00-0.03) x10^3u/L Absolute Lymphs (auto) 1.76 (1.0-4.6) x10^3/uL Absolute Monos (auto) 0.46 (0.0-1.3) x10^3/uL Absolute Nucleated RBC 0.00 (0.00-0.01) x10^3u/L Lymphocytes % 25.8 (24.0-44.0) % Monocytes % 6.8 (0.0-12.0) % Eosinophils % 1.8 (0.00-5.0) % Basophils % 0.3 (0.0-0.4) % Absolute Granulocytes 4.43 (1.4-6.9) x10^3/uL Basophils # 0.02 (0-0.4) x10^3/uL Sodium (137-145) mmol/L Potassium (3.5-5.1) mmol/L Chloride (98-107) mmol/L Carbon Dioxide (22-30) mmol/L Anion Gap (5-15) MEQ/L BUN (7-17) mg/dL Creatinine (0.52-1.04) mg/dL Estimated GFR ML/MIN Glucose (74-106) mg/dL Lactic Acid (0.4-2.0) Calcium (8.4-10.2) mg/dL Magnesium (1.6-2.3) mg/dL Total Bilirubin (0.2-1.3) mg/dL AST (14-36) U/L ALT (0-35) U/L Alkaline Phosphatase (38-126) U/L Troponin I (0.000-0.034) ng/mL Serum Total Protein (6.3-8.2) g/dL Albumin (3.5-5.0) g/dL - Progress Progress: improved Air Movement: good Progress Note: 02/23/22 15:28 61 years old is evaluated for cough congestion with a positive COVID-19 going on for almost 1 week. She is almost finished with course of antibiotics but still having cough. Chest x-ray did not show any acute infiltrative process reviewed by me, official report is pending. I have given her a shot of Solu-Medrol, does not have much coughing while in the ER. Patient is maintaining oxygen saturation around 98% on room air, not tachypneic or tachycardic. Normal white count, grossly unremarkable chemistries including troponins. I would give her a short course of steroid and cough medication to go home and outpatient follow- up recommended. Discussed with patient aboutPaxilovid and she does not seems to be interested at all. Discussed signs symptoms of worsening needing return to ER which she seems understanding. Stable for discharge. Blood Culture(s) Obtained: No Antibiotics given: No Counseled pt/family regarding: lab results, diagnosis, need for follow-up, rad results - Departure Departure Disposition: Home Clinical Impression: Viral syndrome, COVID-19, Viral URI with cough Condition: Stable Critical Care Time: No Referrals: ZENAIDA DANGELO YIELD IMPROVEMENT ENGINEER [Primary Care Provider] - Follow up/PCP as directed (In 2 days for reevaluation) Instructions: Cough, Adult (DC) Additional Instructions: Continue with your neb treatments. Tylenol as needed for aches and pains. Use cough medicine as recommended. Follow-up with primary care for reevaluation early next week. Return to ER for any worsening. Prescriptions: Prednisone 20 mg [Deltasone 20 mg] 60 mg PO DAILY 5 Days #15 tablet Hydrocodone/Acetaminophen [Hydrocodone-Acetamin 2.5-108/5 ml Solution] 10 ml PO Q6-8HPRN PRN 3 Days #118 udcup MDD 40ml PRN Reason: Cough
[2022-02-23] MEDS ORDERED: solu-MEDROL ONE (14:17)
[2022-02-23] MEDS ORDERED: Sterile H2O 10 ml IJ ONE (14:17)
[2022-02-23 14:22] LABS: Absolute Neutrophil Ct (ANC) 4.43 x10^3/uL (1.4-6.9); Basophil (Absolute #) 0.02 x10^3/uL (0-0.4); Eosinophil % 1.8 % (0.00-5.0); Eosinophil (Absolute #) 0.12 x10^3/uL (0-0.5); Hematocrit 39.2 % (35-47); Hemoglobin 12.4 g/dL (12.0-16.0); Lymphocyte (Absolute #) 1.76 x10^3/uL (1.0-4.6); Lymphocytes % 25.8 % (24.0-44.0); Mean Cell Volume 94.5 fL (78-100); Mean Corpuscular Hemoglobin 29.9 pg (26-32); Mean Corpuscular Hgb Concent. 31.6 g/dL (32-36); Mean Platelet Volume 10.6 fL (7.5-11.0); Monocyte (Absolute #) 0.46 x10^3/uL (0.0-1.3); Monocytes % 6.8 % (0.0-12.0); Platelet Count 258 x10^3/uL (150-450); Red Blood Count 4.15 x10^6/uL (4.1-5.4); Red Cell Distribution Width 13.8 % (11.5-14.0); White Blood Count 6.8 x10^3/uL (4.0-10.5)
[2022-02-23 14:41] VITALS: BP 118/68
[2022-02-23 14:45] LABS: ALBUMIN 4.1 g/dL (3.5-5.0); ANION GAP 12.6 MEQ/L (5-15); BILIRUBIN,TOTAL 0.7 mg/dL (0.2-1.3); Calcium 9.1 mg/dL (8.4-10.2); Creatinine 1 1.13 mg/dL (0.52-1.04); EST GLOMERULAR FILTRATION RATE 51.7 ML/MIN; Potassium 4.6 mmol/L (3.5-5.1); Total Protein 7.7 g/dL (6.3-8.2)
[2022-02-23] MEDS ORDERED: Sodium Chloride 0.9% 500 ML 500 ML IV ONE ×2 (15:37→15:38)
--- NOTE | 2022-02-23 16:37 | XRAY ---
Indication: Cough. Covid 19. Comparison: October 24, 2021 Portable chest remains clear. Heart and mediastinal structures within normal limits. Bony thorax intact with osteopenia and degenerative changes. Impression: Continued nonacute chest with chronic bony findings.
[2022-02-23 16:41] VITALS: PULSE 66
== END 2022-02-23 16:45 | disposition home or self-care (01) ==
LOC: ED 12:58
DX: U07.1 COVID-19 (principal); R05.1 Acute cough; R09.81 Nasal congestion; R53.1 Weakness; M79.10 Myalgia, unspecified site; E78.5 Hyperlipidemia, unspecified; I10 Essential (primary) hypertension; Z79.52 Long term (current) use of systemic steroids; Z79.891 Long term (current) use of opiate analgesic; Z79.899 Other long term (current) drug therapy
CPT/HCPCS: 36000; 36415; 71045; 80053; 83605; 83735; 84484; 85025; 87040; 93041; 96360; 96374; 99284; J2930

== ENCOUNTER 2022-05-29 09:14 | Emergency (ER) | payer OTHER ==
[2022-05-29 09:27] VITALS: O2SAT 98
[2022-05-29] MEDS ORDERED: ZOFRAN ODT 4 MG PO ONE (09:48)
[2022-05-29] MEDS ORDERED: ZOFRAN ODT 4 MG ONE (09:49)
--- NOTE | 2022-05-29 09:55 | ERPHSYRPT ---
- History of Present Illness Time Seen by Provider: 05/29/22 09:51 Source: patient Exam Limitations: no limitations Patient Subjective Stated Complaint: PT states "I tripped over a root in the yard and I fell and I have knots in my head, my neck hurts, I have bruises on my right breast, my ribs hurt, and both my big toes hurt." Triage Nursing Assessment: Pt presented alert and oriented X3, skin pwd. Pt ambulates with a slow gait, able to speak in clear full sentences. pt has abrasions noted to bilat palms, bruising noted to right upper breast. Physician History: Patient is a 61-year-old female presents to emergency department for evaluation status post mechanical fall from ground-level. Fall occurred yesterday. Patient was in her yard tripped on a root sticking up from the ground. Patient states she hit her head. Patient has pain to her right hand bilateral great toes neck and anterior chest wall. Patient requesting x-rays of both feet right hand. Patient has midline neck tenderness. Cervical collar applied. Patient slightly nauseous. No loss of consciousness. The fall was not associated with any neuro cardiovascular symptomology. No chest pain or shortness of breath. No numbness tingling or weakness. Patient voices no other complaints or concerns at this time. Patient declined pain medication Portions of this note were created with voice recognition technology. There may be grammatical, spelling, punctuation or sound alike errors Timing/Duration: yesterday Severity: moderate Modifying Factors: Improves With: movement Associated Symptoms: nausea, No vomiting, No weakness Allergies/Adverse Reactions: Sulfa (Sulfonamide Antibiotics) Allergy (Verified 02/23/22 13:23) Beta-Blockers (Beta-Adrenergic Bloc Adverse Reaction (Verified 02/23/22 13:23) bupropion [From Wellbutrin] Adverse Reaction (Verified 02/23/22 13:23) Home Medications: Losartan Potassium [Cozaar] 100 mg PO DAILY 10/29/19 [History] Amlodipine Besylate 5 mg [Norvasc 5 mg] 5 mg PO DAILY 11/26/19 [History] Nitroglycerin 0.4 mg Tablet [Nitrostat 0.4 MG Tablet] 0.4 mg SL Q5MIN PRN MR X 3 PRN 12/25/19 [History] Atorvastatin Calcium 40 mg PO HS 10/24/21 [History] Furosemide 20 mg [Lasix 20 mg] 20 mg PO DAILY PRN PRN 10/24/21 [History] Ranolazine [Ranolazine ER] 1,000 mg PO QAM 10/24/21 [History] Triamterene/Hydrochlorothiazid [Triamterene-Hctz 37.5-25 mg Tb] 1 tab PO DAILY 10/24/21 [History] Aspirin [Low Dose Aspirin EC] 81 mg PO DAILY 12/28/21 [History] Ranolazine 500 MG [Ranexa 500 MG] 500 mg PO HS 12/28/21 [History] Ipratropium/Albuterol Sulfate [Iprat-Albut 0.5-3(2.5) mg/3 ml] 3 ml IH TID 02/23/22 [History] Hx Tetanus, Diphtheria Vaccination/Date Given: Yes Hx Influenza Vaccination/Date Given: Yes Hx Pneumococcal Vaccination/Date Given: Yes Immunizations Up to Date: Yes Travel Risk - International Travel Have you traveled outside of the country in past 3 weeks: No - Coronavirus Screening Are you exhibiting any of the following symptoms?: No Close contact with a COVID-19 positive Pt in past 14-21 Days: No - Vaccine Status Have you recieved a Covid-19 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: 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[email or web address] - Vaccination Dates Date of 2cond Vaccination (if applicable): 2021 - Review of Systems Constitutional: No Symptoms, No Fever, No Chills Eyes: No Symptoms Ears, Nose, & Throat: No Symptoms Respiratory: No Symptoms, No Cough, No Dyspnea Cardiac: No Symptoms, No Chest Pain, No Edema, No Syncope Abdominal/Gastrointestinal: No Symptoms, No Abdominal Pain, No Nausea, No Vomiting, No Diarrhea Genitourinary Symptoms: No Symptoms, No Dysuria Musculoskeletal: No Symptoms, No Back Pain, No Neck Pain Skin: No Symptoms, No Rash Neurological: No Symptoms, No Dizziness, No Focal Weakness, No Sensory Changes Psychological: No Symptoms Endocrine: No Symptoms Hematologic/Lymphatic: No Symptoms Immunological/Allergic: No Symptoms All Other Systems: Reviewed and Negative - Past Medical History Pertinent Past Medical History: Yes Neurological History: No Pertinent History ENT History: Glaucoma Cardiac History: High Cholesterol, Hypertension, Myocardial Infarction ([place]) Respiratory History: No Pertinent History Endocrine Medical History: Hypoglycemia Musculoskeletal History: Fractures GI Medical History: Ulcer History: Other Psycho-Social History: Anxiety, Depression Female Reproductive Disorders: No Pertinent History Other Medical History: Sleep apnea, "hardened heart muscle", kidney cysts - Past Surgical History Past Surgical History: Yes Neuro Surgical History: No Pertinent History Cardiac: Cardiac Catheterization Respiratory: No Pertinent History Gastrointestinal: Appendectomy Genitourinary: No Pertinent History Musculoskeletal: Orthopedic Surgery Female Surgical History: Hysterectomy - Social History Smoking Status: Never smoker Exposure to second hand smoke: No Drug Use: none Patient Lives Alone: No - Nursing Vital Signs Nursing Vital Signs: Initial Vital Signs Temperature 97.7 F 05/29/22 09:22 Pulse Rate 91 H 05/29/22 09:22 Respiratory Rate 24 05/29/22 09:22 Blood Pressure 161/86 05/29/22 09:22 O2 Sat by Pulse Oximetry 98 05/29/22 09:22 Pain Scale Pain Intensity 8 - Physical Exam General Appearance: no apparent distress, alert Eye Exam: PERRL/EOMI, eyes nml inspection Ears, Nose, Throat Exam: normal ENT inspection, TMs normal, pharynx normal, moist mucous membranes Neck Exam: normal inspection, non-tender, supple, other (Midline C-spine tenderness. Cervical collar applied upon arrival.) Respiratory Exam: normal breath sounds, lungs clear, airway intact, other (Anterior chest wall tenderness to palpation. Palpation reproduces pain.), No respiratory distress Cardiovascular Exam: regular rate/rhythm, normal heart sounds, normal peripheral pulses Gastrointestinal/Abdomen Exam: soft, normal bowel sounds, No tenderness, No mass Back Exam: normal inspection, normal range of motion, No CVA tenderness, No vertebral tenderness Extremity Exam: normal inspection, normal range of motion, pelvis stable, other (Tenderness to palpation of bilateral great toes. Patient right hand also tender. Patient requesting x-rays of these body parts) Neurologic Exam: alert, oriented x 3, cooperative, normal mood/affect, nml cerebellar function, nml station & gait, sensation nml, No motor deficits Skin Exam: normal color, warm, dry, No rash Lymphatic Exam: No adenopathy SpO2 Interpretation: normal SpO2: 98 O2 Delivery: Room Air - Course Nursing assessment & vital signs reviewed: Yes EKG Interpreted by Me: RATE (76), Sinus Rhythm, NORMAL AXIS, NORMAL INTERVALS (No old EKG on record for comparison however no STEMI. Borderline T wave abnormalities. Patient has no active chest pain at this time.) - Radiology Exams Chest X-ray Interpretation: Teleradiologist Report (Negative chest x-ray, osteopenia observed degenerative changes) Foot X-ray Interpretation: Teleradiologist Report (Left plantar heel spur no fracture dislocation) Other X-ray Interpretation: Teleradiologist Report (Right foot. Right plantar heel spur) Hand X-ray Interpretation: Teleradiologist Report (No fractures dislocations) - CT Exams Cervical Spine CT Interpretation: Tele-radiologist Report (C-spine arthritis, lordotic straightening, C4-T1 disc base narrowing. Bilateral carotid calcification) Head CT Interpretation: Tele-radiologist Report (Negative CT head without contrast) Ordered Tests: Active Orders 24 hr Category Date Time Status CERVICAL SPINE WO CONTRAST [CT] Stat Exams 05/29/22 09:41 Completed CHEST 1 VIEW (PORTABLE) Stat Exams 05/29/22 10:09 Completed FOOT (MINIMUM 3 VIEWS) Stat Exams 05/29/22 09:44 Completed FOOT (MINIMUM 3 VIEWS) Stat Exams 05/29/22 09:45 Completed HAND (MINIMUM 3 VIEWS) Stat Exams 05/29/22 09:43 Completed HEAD WITHOUT CONTRAST [CT] Stat Exams 05/29/22 09:41 Completed Medication Summary Discontinued Medications Generic Name Dose Route Start Last Admin Trade Name Freq PRN Reason Stop Dose Admin Ondansetron HCl 4 mg 05/29/22 09:48 05/29/22 09:49 Zofran 4 Mg/Udtablet Orally Disintegrating PO 05/29/22 09:49 4 mg STAT ONE Administration Ondansetron HCl Confirm 05/29/22 09:49 Zofran 4 Mg/Udtablet Orally Disintegrating Administered 05/29/22 09:50 Dose 4 mg .ROUTE .STK-MED ONE - Progress Progress: improved Progress Note: Patient is a 61-year-old female presents emergency department for evaluation status post mechanical fall. Patient complained of slight nausea secondary to her head injury. C-spine pain. Pain to the right hand. Chest wall soreness as well as bilateral foot great toe pain. Patient's complaint is acute. Complexity of complaint is moderate. No significant comorbidities to contribute to patient's current symptomology. Tests ordered include CT head, CT C-spine, bilateral foot x-ray as well as right hand and chest. EKG ordered as well. CT head negative, CT C-spine negative for fracture dislocation. Cervical collar removed after results of C-spine obtained. X-ray of right hand negative bilateral foot x-ray negative for acute pathology. Chest x-ray negative as well. Patient declined pain medication. Findings were used for medical decision making. EKG is normal sinus rhythm. Patient states she is ready for discharge. She voices no complaints. Patient agrees to follow-up with her primary care doctor within 48 hours for reevaluation. There are no social determinants of health that will preclude plan of care. Level of EM service provided was moderate. Complexity the problem addressed was low. Complexity of data reviewed and analyzed was moderate. Risk of complication and/or risk of morbidity/mortality of patient management is low. No critical care time. Patient served as independent historian. Patient declined any sort of management. She did not want pain medication. Time spent during discharge was approximately 10 minutes. Discharge diagnoses fall, cervical strain, concussion, toe contusion and sprain. Portions of this note were created with voice recognition technology. There may be grammatical, spelling, punctuation or sound alike errors 05/29/22 11:00 Counseled pt/family regarding: diagnosis, need for follow-up, rad results Medical Desision Making - Diagnostic Testing Diagnostic Testing: Diagnostic tests were ordered,analyzed, and reviewed by me and used in my medical decision making for this patient. Radiologic studies (if ordered) were read by me initially then discussed with the radiologist . - Departure Departure Disposition: Home Clinical Impression: Fall, Cervical strain, acute, Carotid artery calcification, Osteopenia determined by x-ray, Left plantar heel spur, Right plantar heel spur, Concussion, Contusion, toes, Sprain of hand, right Condition: Stable Critical Care Time: No Referrals: ZENAIDA DANGELO FIELD LOGISTICS COORDINATOR [Primary Care Provider] - Follow up/PCP as directed Additional Instructions: Discharge/Care Plan JAVON LEONE was seen on 05/29/22 in the Emergency Room. The patient was counseled regarding Diagnosis,Lab results, Imaging studies, need for follow up and when to return to the Emergency Room. Prescriptions given: Discharge Note I have spoken with the patient and/or caregivers. I have explained the patient's condition, diagnosis and treatment plan based on the information available to me at this time. I have answered the patient's and/or caregiver's questions and addressed any concerns. The patient and/or caregivers have as good understanding of the patient's diagnosis, condition and treatment plan as can be expected at this point. The vital signs have been stable. The patient's condition is stable and appropriate for discharge from the emergency department. The patient will pursue further outpatient evaluation with the primary care physician or other designated or consulting physician as outlined in the discharge instructions. The patient and/or caregivers are agreeable to this plan of care and follow-up instructions have been explained in detail. The patient and/or caregivers have received these instruction. The patient/and or caregivers are aware that any significant change in condition or worsening of symptoms should prompt an immediate return to this or the closest emergency department or call 911.
--- NOTE | 2022-05-29 10:17 | XRAY ---
Indication: Headache, dizziness, nausea, and blurry vision. Status post fall. Multiple contiguous axial images obtained through the head without contrast. Comparison: None Age-appropriate global atrophy. No acute intracranial hemorrhage, abnormal extra-axial fluid collection, or mass effect. Fourth ventricle is midline without hydrocephalus. Bony calvarium intact. Visualized paranasal sinuses and mastoid air cells are clear. Impression: Negative CT head without contrast exam.
--- NOTE | 2022-05-29 10:19 | XRAY ---
Indication: Pain following fall. Multiple contiguous axial images obtained through the cervical spine. Sagittal and coronal reformatted images obtained. Comparison: None Axial images are negative for acute fracture, suspicious bony lesions, or spinal canal stenosis. Minimal/mild C4-T1 degenerative endplate spurring. Facets are symmetric. Sagittal and coronal reformatted images demonstrate lordotic straightening, positional versus paraspinal spasm. C4-T1 disc space narrowing. No acute compression fracture, subluxation, or jumped facet. Normal appearing craniocervical junction. Visualized noncontrasted soft tissues demonstrates mild bilateral carotid calcifications. Impression: 1. Lordotic straightening, positional versus paraspinal spasm. Negative acute fracture/subluxation. 2. Chronic findings including multilevel degenerative changes and bilateral carotid calcifications.
--- NOTE | 2022-05-29 10:39 | XRAY ---
Indication: Chest pain following fall. Comparison: February 23, 2022 Portable chest remains inflated and clear. Heart not enlarged. Bony thorax intact again with osteopenia and degenerative changes. No new/acute findings.
--- NOTE | 2022-05-29 10:41 | XRAY ---
Indication: Great toe pain following fall. Comparison: None 3 nonweightbearing views left foot demonstrates small plantar heel spur and small cuboid accessory ossicle. No other bony, articular, or soft tissue abnormalities.
--- NOTE | 2022-05-29 10:41 | XRAY ---
Indication: Great toe pain following fall. Comparison: None 3 nonweightbearing views right foot demonstrates small plantar heel spur. No other bony, articular, or soft tissue abnormalities.
--- NOTE | 2022-05-29 10:43 | XRAY ---
Indication: Pain following fall. Comparison: None 3 view right hand demonstrates ring base 4th finger, intact triquetrum screw, and tiny scaphoid bone cyst. No other bony, articular, or soft tissue abnormalities.
[2022-05-29 11:26] VITALS: BP 150/80; PULSE 70
== END 2022-05-29 11:20 | disposition home or self-care (01) ==
LOC: ED 09:14
DX: S16.1XXA Strain of muscle, fascia and tendon at neck level, initial encounter (principal); S06.0X0A Concussion without loss of consciousness, initial encounter; S90.121A Contusion of right lesser toe(s) without damage to nail, initial encounter; S63.91XA Sprain of unspecified part of right wrist and hand, initial encounter; W01.0XXA Fall on same level from slipping, tripping and stumbling without subsequent striking against object, initial encounter; Y92.007 Garden or yard of unspecified non-institutional (private) residence as the place of occurrence of the external cause; I65.29 Occlusion and stenosis of unspecified carotid artery; M85.80 Other specified disorders of bone density and structure, unspecified site; M77.32 Calcaneal spur, left foot; M77.31 Calcaneal spur, right foot; R07.89 Other chest pain; R11.0 Nausea; E78.5 Hyperlipidemia, unspecified; I10 Essential (primary) hypertension; Z79.899 Other long term (current) drug therapy
CPT/HCPCS: 70450; 71045; 72125; 73130; 73630; 99283; Q0162

== ENCOUNTER 2022-06-21 16:51 | Emergency (ER) | payer OTHER ==
[2022-06-21] MEDS ORDERED: Sodium Chloride 0.9% 1000 ML 1,000 ML IV STA (17:09)
[2022-06-21] MEDS ORDERED: Sodium Chloride 0.9% 1000 ML 1,000 ML ONE (17:09)
--- NOTE | 2022-06-21 19:09 | XRAY ---
Indication: Cough intraoperative breath. Elevated d-dimer. Multiple contiguous axial images obtained through the chest using 100 cc Isovue 370 contrast and PE protocol. Comparison: December 27, 2021 Adequate opacification of the pulmonary arteries to include the lobar and segmental branches. No pulmonary embolus. Heart not enlarged. Aorta is normal in course and caliber. No pathologic mediastinal/hilar lymphadenopathy. Stable small hiatal hernia. Lungs inflated and remain clear. Bony thorax intact again with mild degenerative changes the spine. Limited upper abdomen again demonstrates fatty liver and left renal parapelvic cysts. Impression: 1. Continued normal CT PE exam. 2. Again incidental small hiatal hernia, fatty liver, and left renal parapelvic cysts.
--- NOTE | 2022-06-21 19:20 | ERPHSYRPT ---
- History of Present Illness Modifying Factors: Improves With: other <STAN MILLER - Last Filed: 06/23/22 16:21> - History of Present Illness Source: patient Exam Limitations: no limitations Patient Subjective Stated Complaint: Abnormal D-Dimer (high) at Dr. Koroma's office Triage Nursing Assessment: Patient ambulated back to ER. She is alert and oriented. No SOB. No cough. Patient's face is flushed. She is tearful when taking patient history. Timing/Duration: yesterday (Saw her manager pool and had a D-dimer which was elevated called today and told to come to the ER.) Activities at Onset: none Severity of Dyspnea-Max: none Severity of Dyspnea-Current: none Possible Cause: occasional episodes Modifying Factors: Improves With: other (soa) Associated Symptoms: weakness Hx Tetanus, Diphtheria Vaccination/Date Given: Yes Hx Influenza Vaccination/Date Given: Yes Hx Pneumococcal Vaccination/Date Given: Yes Immunizations Up to Date: Yes <NARCISO PITTMAN - Last Filed: 06/24/22 07:25> - History of Present Illness Time Seen by Provider: 06/21/22 17:20 Physician History: Patient is a 61-year-old white female who yesterday went to see her manager pool and had extensive blood work done in anticipation of a work-up for fatigue. Today she received a urgent phone call to come to the ER for a CTA of the chest to rule out of pulmonary embolus because of an elevated D-dimer. She does have a history of previous pulmonary emboli. (NARCISO PITTMAN) Allergies/Adverse Reactions: Sulfa (Sulfonamide Antibiotics) Allergy (Verified 06/21/22 17:04) Beta-Blockers (Beta-Adrenergic Bloc Adverse Reaction (Verified 06/21/22 17:04) bupropion [From Wellbutrin] Adverse Reaction (Verified 06/21/22 17:04) Home Medications: Losartan Potassium [Cozaar] 100 mg PO DAILY 10/29/19 [History] Amlodipine Besylate 5 mg [Norvasc 5 mg] 5 mg PO DAILY 11/26/19 [History] Nitroglycerin 0.4 mg Tablet [Nitrostat 0.4 MG Tablet] 0.4 mg SL Q5MIN PRN MR X 3 PRN 12/25/19 [History] Atorvastatin Calcium 40 mg PO HS 10/24/21 [History] Furosemide 20 mg [Lasix 20 mg] 20 mg PO DAILY PRN PRN 10/24/21 [History] Ranolazine [Ranolazine ER] 1,000 mg PO QAM 10/24/21 [History] Triamterene/Hydrochlorothiazid [Triamterene-Hctz 37.5-25 mg Tb] 1 tab PO DAILY 10/24/21 [History] Aspirin [Low Dose Aspirin EC] 81 mg PO DAILY 12/28/21 [History] Ranolazine 500 MG [Ranexa 500 MG] 500 mg PO HS 12/28/21 [History] Travel Risk - International Travel Have you traveled outside of the country in past 3 weeks: No - Coronavirus Screening Are you exhibiting any of the following symptoms?: No Symptoms: Shortness of Breath, Headaches/Body Aches/Fatigue Close contact with a COVID-19 positive Pt in past 14-21 Days: No - Vaccine Status Have you recieved a Covid-19 vaccination: Yes 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: [employer] - Vaccination Dates Date of 2cond Vaccination (if applicable): 2021 <NARCISO PITTMAN - Last Filed: 06/24/22 07:25> - Review of Systems Constitutional: No Symptoms <STAN MILLER - Last Filed: 06/23/22 16:21> - Review of Systems Constitutional: Fatigue, No No Symptoms, No Fever, No Chills Eyes: No Symptoms Ears, Nose, & Throat: No Symptoms Respiratory: No Cough, No Dyspnea Cardiac: No Chest Pain, No Edema, No Syncope Abdominal/Gastrointestinal: No Abdominal Pain, No Nausea, No Vomiting, No Diarrhea Genitourinary Symptoms: No Dysuria Musculoskeletal: No Back Pain, No Neck Pain Skin: No Rash Neurological: No Dizziness, No Focal Weakness, No Sensory Changes Psychological: No Symptoms Endocrine: No Symptoms All Other Systems: Reviewed and Negative <NARCISO PITTMAN - Last Filed: 06/24/22 07:25> - Past Medical History Pertinent Past Medical History: Yes Neurological History: No Pertinent History ENT History: Glaucoma Cardiac History: High Cholesterol, Hypertension, Myocardial Infarction ([place]) Respiratory History: No Pertinent History Endocrine Medical History: Hypoglycemia Musculoskeletal History: Fractures GI Medical History: Ulcer History: Other Psycho-Social History: Anxiety, Depression Female Reproductive Disorders: No Pertinent History Other Medical History: Sleep apnea, "hardened heart muscle", kidney cysts - Past Surgical History Past Surgical History: Yes Neuro Surgical History: No Pertinent History Cardiac: Cardiac Catheterization Respiratory: No Pertinent History Gastrointestinal: Appendectomy Genitourinary: No Pertinent History Musculoskeletal: Orthopedic Surgery Female Surgical History: Hysterectomy - Social History Smoking Status: Never smoker Exposure to second hand smoke: No Drug Use: none Patient Lives Alone: No <NARCISO PITTMAN - Last Filed: 06/24/22 07:25> - Physical Exam Respiratory Exam: normal breath sounds, No respiratory distress O2 Delivery: Room Air <STAN MILLER - Last Filed: 06/23/22 16:21> - Physical Exam General Appearance: no apparent distress, alert Eye Exam: PERRL/EOMI Neck Exam: normal inspection, supple Respiratory Exam: normal breath sounds Cardiovascular/Chest Exam: normal heart sounds, regular rate/rhythm Abdominal/Gastrointestinal Exam: soft, No tenderness, No distention, No mass Extremity Exam: non-tender, normal range of motion, normal inspection, no calf tenderness, no pedal edema Neurologic Exam: alert, oriented x 3, cooperative, home 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 II-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 nml as tested, sensation nml, No motor deficits Skin Exam: normal color, warm, No dry SpO2 Interpretation: normal SpO2: 97 O2 Delivery: Room Air <NARCISO PITTMAN Last Filed: 06/24/22 07:25> - Nursing Vital Signs Nursing Vital Signs: Initial Vital Signs Temperature 98 F 06/21/22 17:04 Pulse Rate 87 06/21/22 17:04 Respiratory Rate 18 06/21/22 17:04 Blood Pressure 143/88 06/21/22 17:04 O2 Sat by Pulse Oximetry 97 06/21/22 17:04 Pain Scale Pain Intensity 0 - CT Exams Chest CT Interpretation: Tele-radiologist Report, No PE <STAN MILLER - Last Filed: 06/23/22 16:21> - Course Nursing assessment & vital signs reviewed: Yes - CT Exams Chest CT Interpretation: Tele-radiologist Report, No PE <NARCISO PITTMAN Last Filed: 06/24/22 07:25> Ordered Tests: Medication Summary Discontinued Medications Generic Name Dose Route Start Last Admin Trade Name Freq PRN Reason Stop Dose Admin Sodium Chloride 1,000 mls @ 999 mls/hr 06/21/22 17:09 06/21/22 17:19 Sodium Chloride 0.9% 1000 Ml IV 06/21/22 18:09 150 mls/hr .Q1H1M STA Infusion Sodium Chloride Confirm 06/21/22 17:09 Sodium Chloride 0.9% 1000 Ml Administered 06/21/22 17:10 Dose 1,000 mls @ ud .ROUTE .STK-MED ONE - Progress Progress: improved ( move remove) Air Movement: good Blood Culture(s) Obtained: No Antibiotics given: No Counseled pt/family regarding: lab results, need for follow-up, rad results <STAN MILLER - Last Filed: 06/23/22 16:21> - Progress Progress Note: 06/21/22 21:18 Took over care at 1900, CTA results pending and were negative. Discussed results w/ patient and d/c'd home. (STAN MILLER) Medical Desision Making - Diagnostic Testing Diagnostic test were ordered, analyzed, and reviewed by me: Yes Radiological Interpretation: Reviewed by me - Risk of complications Low Risk: Low risk of morbidity from additional dx testing or treatment <STAN MILLER - Last Filed: 06/23/22 16:21> - Independent Historian Additional History obtained from: Spouse <NARCISO PITTMAN - Last Filed: 06/24/22 07:25> <STAN MILLER - Last Filed: 06/23/22 16:21> - Departure Departure Disposition: Home Critical Care Time: No <NARCISO PITTMAN - Last Filed: 06/24/22 07:25> - Departure Clinical Impression: Elevated d-dimer, Fatigue Condition: Good Referrals: BECKI RANGEL MD [CONSULTING PHYSICIAN] - Follow up/PCP as directed ZENAIDA DANGELO NP [Primary Care Provider] - Follow up/PCP as directed Instructions: D-Dimer Test
[2022-06-21 19:42] VITALS: BP 142/80; PULSE 84
[2022-06-21 21:07] VITALS: O2SAT 97
== END 2022-06-21 19:52 | disposition home or self-care (01) ==
LOC: ED 16:51
DX: R79.1 Abnormal coagulation profile (principal); Z86.711 Personal history of pulmonary embolism; E78.5 Hyperlipidemia, unspecified; I10 Essential (primary) hypertension; Z79.899 Other long term (current) drug therapy
CPT/HCPCS: 36000; 71260; 99284

== ENCOUNTER 2023-04-23 18:56 | Emergency (ER) | payer OTHER ==
--- NOTE | 2023-04-23 19:04 | ERPHSYRPT ---
- History of Present Illness Time Seen by Provider: 04/23/23 19:04 Source: patient Exam Limitations: no limitations Physician History: This is a morbidly obese 62-year-old white female patient who began having severe left-sided headache "as if my head was going to explode" and left jaw pain. The pain she describes as severe. There is no visual changes. She was apparently seen in an outpatient setting at [facility] in [facility] and told there was an abnormality on her EKG. Patient presents with no chest pain. However she did have some very mild, substernal central nonradiating brief chest discomfort. It is gone at this time. She states it wa s nothing like her myocardial infarction pain that she had several years ago. Patient appears anxious. Patient has a history of anxiety and depression as well as hypoglycemia, hypertension, hyperlipidemia and coronary artery disease. She has no coughing complaints. She has no chest pain. She has no abdominal pain. She has had no nausea vomiting or diarrhea symptoms. She has not had a fever Timing/Duration: today Severity: moderate (Left-sided headache and left-sided jaw pain) Associated Symptoms: headaches (Left side), No nausea, No vomiting, No abdominal pain, No shortness of breath, No cough, No chest pain, No fever Allergies/Adverse Reactions: Sulfa (Sulfonamide Antibiotics) Allergy (Verified 04/23/23 19:27) Beta-Blockers (Beta-Adrenergic Bloc Adverse Reaction (Verified 04/23/23 19:27) bupropion [From Wellbutrin] Adverse Reaction (Verified 04/23/23 19:27) Home Medications: Losartan Potassium [Cozaar] 100 mg PO DAILY 10/29/19 [History] Amlodipine Besylate 5 mg [Norvasc 5 mg] 2.5 mg PO DAILY 11/26/19 [History] Nitroglycerin 0.4 mg Tablet [Nitrostat 0.4 MG Tablet] 0.4 mg SL Q5MIN PRN MR X 3 PRN 12/25/19 [History] Atorvastatin Calcium 40 mg PO HS 10/24/21 [History] Furosemide 20 mg [Lasix 20 mg] 20 mg PO DAILY PRN PRN 10/24/21 [History] Ranolazine [Ranolazine ER] 1,000 mg PO BID 10/24/21 [History] Triamterene/Hydrochlorothiazid [Triamterene-Hctz 37.5-25 mg Tb] 1 tab PO DAILY 10/24/21 [History] Aspirin [Low Dose Aspirin EC] 81 mg PO DAILY 12/28/21 [History] Ergocalciferol (Vitamin D2) [Vitamin D2] 1 cap PO WEEKLY 04/23/23 [History] Primidone 50 MG [Mysoline 50Mg] 100 mg PO HS 04/23/23 [History] Tirzepatide [Mounjaro] 7.5 mg SQ WEEKLY 04/23/23 [History] Hx Tetanus, Diphtheria Vaccination/Date Given: Yes Hx Influenza Vaccination/Date Given: Yes Hx Pneumococcal Vaccination/Date Given: Yes Travel Risk - International Travel Have you traveled outside of the country in past 3 weeks: No - Coronavirus Screening Are you exhibiting any of the following symptoms?: No Close contact with a COVID-19 positive Pt in past 14-21 Days: No - Vaccine Status Have you recieved a Covid-19 vaccination: Yes 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 - Vaccination Dates Date of 2cond Vaccination (if applicable): 2021 - Review of Systems Constitutional: No Symptoms Eyes: No Symptoms Ears, Nose, & Throat: No Symptoms Respiratory: No Symptoms Cardiac: No Symptoms Abdominal/Gastrointestinal: No Symptoms Genitourinary Symptoms: No Symptoms Musculoskeletal: No Symptoms Skin: No Symptoms Neurological: Headache (Left side and left side jaw pain) Psychological: Anxiety, Depression Endocrine: No Symptoms Hematologic/Lymphatic: No Symptoms Immunological/Allergic: No Symptoms All Other Systems: Reviewed and Negative - Past Medical History Pertinent Past Medical History: Yes Neurological History: No Pertinent History ENT History: Glaucoma Cardiac History: High Cholesterol, Hypertension, Myocardial Infarction ([place]) Respiratory History: No Pertinent History Endocrine Medical History: Hypoglycemia Musculoskeletal History: Fractures GI Medical History: Ulcer History: Other Psycho-Social History: Anxiety, Depression Female Reproductive Disorders: No Pertinent History Other Medical History: Sleep apnea, "hardened heart muscle", kidney cysts - Past Surgical History Past Surgical History: Yes Neuro Surgical History: No Pertinent History Cardiac: Cardiac Catheterization Respiratory: No Pertinent History Gastrointestinal: Appendectomy Genitourinary: No Pertinent History Musculoskeletal: Orthopedic Surgery Female Surgical History: Hysterectomy - Social History Smoking Status: Never smoker Exposure to second hand smoke: No Drug Use: none Patient Lives Alone: No - Nursing Vital Signs Nursing Vital Signs: Initial Vital Signs Pulse Rate 125 H 04/23/23 19:15 Respiratory Rate 18 04/23/23 19:15 Blood Pressure 155/90 04/23/23 19:15 O2 Sat by Pulse Oximetry 96 04/23/23 19:15 Pain Scale Pain Intensity 4 - Physical Exam General Appearance: no apparent distress, alert, anxiety, obese Eye Exam: PERRL/EOMI, eyes nml inspection Ears, Nose, Throat Exam: normal ENT inspection, moist mucous membranes Neck Exam: normal inspection, non-tender, supple, full range of motion Respiratory Exam: normal breath sounds, lungs clear, airway intact, No chest tenderness, No respiratory distress Cardiovascular Exam: regular rate/rhythm, normal heart sounds, normal peripheral pulses Gastrointestinal/Abdomen Exam: soft, normal bowel sounds, No tenderness Pelvic Exam: not done Rectal Exam: not done Back Exam: normal inspection, normal range of motion, vertebral tenderness, No CVA tenderness Extremity Exam: normal inspection, normal range of motion, pelvis stable Neurologic Exam: alert, oriented x 3, cooperative, buzzsaw operator II-XII nml as tested, nml cerebellar function, nml station & gait, sensation nml Skin Exam: normal color, warm, dry Lymphatic Exam: No adenopathy SpO2 Interpretation: normal O2 Delivery: Room Air - Course Nursing assessment & vital signs reviewed: Yes EKG Interpreted by Me: RATE (70), Sinus Rhythm, NORMAL AXIS, NORMAL INTERVALS, NORMAL QRS, NORMAL ST-T, Other (No acute ischemic changes on today's twelve-lead EKG.) Ordered Tests: Active Orders 24 hr Category Date Time Status Fire Engineer STAT Care 04/23/23 19:19 Active EKG-ER Only STAT Care 04/23/23 19:18 Active IV Insertion STAT Care 04/23/23 19:18 Active Pulse Oximetry (ED) STAT Care 04/23/23 19:18 Active CHEST WITH CONTRAST [CT] Stat Exams 04/23/23 20:52 Taken FACIAL BONES WO CONTRAST [CT] Stat Exams 04/23/23 19:18 Taken HEAD WITHOUT CONTRAST [CT] Stat Exams 04/23/23 19:18 Taken CBC W DIFF Stat Lab 04/23/23 19:30 Completed CMP Stat Lab 04/23/23 19:30 Completed D-DIMER QUANTITATIVE Stat Lab 04/23/23 19:30 Completed TROPONIN Q4H Lab 04/23/23 19:30 Completed TROPONIN Q4H Lab 04/23/23 23:30 Ordered TROPONIN Q4H Lab 04/24/23 03:30 Ordered Medication Summary Discontinued Medications Generic Name Dose Route Start Last Admin Trade Name Isha PRN Reason Stop Dose Admin Sodium Chloride 500 mls @ 500 mls/hr 04/23/23 20:52 04/23/23 22:07 Sodium Chloride 0.9% 500 Ml IV 04/23/23 21:51 Infused .Q1H ONE Infusion Sodium Chloride Confirm 04/23/23 21:03 Sodium Chloride 0.9% 500 Ml Administered 04/23/23 21:04 Dose 500 mls @ ud IV .STK-MED ONE Morphine Sulfate 4 mg 04/23/23 19:35 04/23/23 19:38 Morphine Sulfate 4 Mg/Ml Injection IV 04/23/23 19:36 4 mg STAT ONE Administration Morphine Sulfate Confirm 04/23/23 19:36 Morphine Sulfate 4 Mg/Ml Injection Administered 04/23/23 19:37 Dose 4 mg .ROUTE .STK-MED ONE Ondansetron HCl 4 mg 04/23/23 19:35 04/23/23 19:38 Ondansetron Hcl 4 Mg/2 Ml Vial IV 04/23/23 19:36 4 mg STAT ONE Administration Ondansetron HCl Confirm 04/23/23 19:36 Ondansetron Hcl 4 Mg/2 Ml Vial Administered 04/23/23 19:37 Dose 4 mg .ROUTE .STK-MED ONE Potassium Chloride 20 meq 04/23/23 20:18 04/23/23 20:50 Potassium Chloride Tab 10 Meq Tab PO 04/23/23 20:19 20 meq STAT ONE Administration Potassium Chloride Confirm 04/23/23 20:47 Potassium Chloride Tab 10 Meq Tab Administered 04/23/23 20:48 Dose 20 meq PO .STK-MED ONE Lab/Rad Data: Laboratory Result Diagrams 04/23/23 19:30 04/23/23 19:30 Laboratory Results 04/23/23 04/23/23 04/23/23 Range/Units 19:30 19:30 19:30 WBC (4.0-10.5) x10^3/uL RBC (4.1-5.4) x10^6/uL Hgb (12.0-16.0) g/dL Hct (35-47) % MCV (78-100) fL MCH (26-32) pg MCHC (32-36) g/dL RDW (11.5-14.0) % Plt Count (150-450) x10^3/uL MPV (7.5-11.0) fL Gran % (36.0-66.0) % Immature Gran % (Auto) (0.00-0.4) % Nucleat RBC Rel Count (0.00-0.1) % Eos # (Auto) (0-0.5) x10^3/uL Immature Gran # (Auto) (0.00-0.03) x10^3u/L Absolute Lymphs (auto) (1.0-4.6) x10^3/uL Absolute Monos (auto) (0.0-1.3) x10^3/uL Absolute Nucleated RBC (0.00-0.01) x10^3u/L Lymphocytes % (24.0-44.0) % Monocytes % (0.0-12.0) % Eosinophils % (0.00-5.0) % Basophils % (0.0-0.4) % Absolute Granulocytes (1.4-6.9) x10^3/uL Basophils # (0-0.4) x10^3/uL D-Dimer 1.11 H* (0.0-0.50) mg/L Sodium 140 (137-145) mmol/L Potassium 3.1 L (3.5-5.1) mmol/L Chloride 105 (98-107) mmol/L Carbon Dioxide 25 (22-30) mmol/L Anion Gap 12.9 (5-15) MEQ/L BUN 21 H (7-17) mg/dL Creatinine 0.97 (0.52-1.04) mg/dL Estimated GFR 65.3 ML/MIN Glucose 97 (74-106) mg/dL Calcium 9.6 (8.4-10.2) mg/dL Total Bilirubin 1.20 (0.2-1.3) mg/dL AST 22 (14-36) U/L ALT 17 (0-35) U/L Alkaline Phosphatase 106 (38-126) U/L Troponin I < 0.012 (0.000-0.034) ng/mL Serum Total Protein 8.0 (6.3-8.2) g/dL Albumin 4.1 (3.5-5.0) g/dL 04/23/23 Range/Units 19:30 WBC 9.1 (4.0-10.5) x10^3/uL RBC 4.61 (4.1-5.4) x10^6/uL Hgb 13.8 (12.0-16.0) g/dL Hct 41.3 (35-47) % MCV 89.6 (78-100) fL MCH 29.9 (26-32) pg MCHC 33.4 (32-36) g/dL RDW 14.2 H (11.5-14.0) % Plt Count 266 (150-450) x10^3/uL MPV 11.1 H (7.5-11.0) fL Gran % 64.2 (36.0-66.0) % Immature Gran % (Auto) 0.3 (0.00-0.4) % Nucleat RBC Rel Count 0.0 (0.00-0.1) % Eos # (Auto) 0.11 (0-0.5) x10^3/uL Immature Gran # (Auto) 0.03 (0.00-0.03) x10^3u/L Absolute Lymphs (auto) 2.43 (1.0-4.6) x10^3/uL Absolute Monos (auto) 0.64 (0.0-1.3) x10^3/uL Absolute Nucleated RBC 0.00 (0.00-0.01) x10^3u/L Lymphocytes % 26.8 (24.0-44.0) % Monocytes % 7.1 (0.0-12.0) % Eosinophils % 1.2 (0.00-5.0) % Basophils % 0.4 (0.0-0.4) % Absolute Granulocytes 5.82 (1.4-6.9) x10^3/uL Basophils # 0.04 (0-0.4) x10^3/uL D-Dimer (0.0-0.50) mg/L Sodium (137-145) mmol/L Potassium (3.5-5.1) mmol/L Chloride (98-107) mmol/L Carbon Dioxide (22-30) mmol/L Anion Gap (5-15) MEQ/L BUN (7-17) mg/dL Creatinine (0.52-1.04) mg/dL Estimated GFR ML/MIN Glucose (74-106) mg/dL Calcium (8.4-10.2) mg/dL Total Bilirubin (0.2-1.3) mg/dL AST (14-36) U/L ALT (0-35) U/L Alkaline Phosphatase (38-126) U/L Troponin I (0.000-0.034) ng/mL Serum Total Protein (6.3-8.2) g/dL Albumin (3.5-5.0) g/dL - Progress Progress: improved, re-examined Progress Note: 04/23/23 19:53 This patient's medical issue is 1 of moderate complexity. The level of complexity in the workup performed is based on review the patient's past medical history, review of the patient's medication list, review of the patient's allergy list, history of present illness and physical findings on examination. The workup in this patient includes placement of intravenous line, twelve-lead EKG, troponin, D-dimer level, CBC, CMP, CT scan of the head and the face. 04/23/23 21:18 I interpreted the laboratory data results. The D-dimer was elevated and potassium level was 3.1 but the remainder of the laboratory data results are within normal limits. We provided the patient with 20 mill equivalents of potassium orally here in the emergency department and will remotely send a prescription for 2 more days of twice daily potassium dosing. We are also ordering a CT scan of the chest with contrast because of the elevated D-dimer. 04/23/23 21:[address] scan of the head without contrast was interpreted by the radiologist and I reviewed the impression. When compared to CT scan of the head dated 05/29/2022, it is a normal CT scan of the head. CT scan of facial bones shows mild left TMJ DJD. Otherwise normal facial bones. 04/23/23 22:10 CT scan of the chest with contrast was interpreted by the radiologist and I reviewed the impression. The impression states continued normal CT pulmonary embolus exam. No evidence of pulmonary embolism or other acute cardiopulmonary process Counseled pt/family regarding: lab results, diagnosis, need for follow-up, rad results Medical Desision Making - Diagnostic Testing Diagnostic test were ordered, analyzed, and reviewed by me: Yes Radiological Interpretation: Reviewed by me, Teleradiologist Report - Risk of complications The pt has a mod risk of morbidity or mortality based on: Need for prescription drug management - Departure Departure Disposition: Home Clinical Impression: Hypokalemia, TMJ arthritis Condition: Stable Critical Care Time: No Referrals: ZENAIDA DANGELO STATE DIRECTOR [Primary Care Provider] - Follow up/PCP as directed Additional Instructions: Take your medications as prescribed. Monitor your blood sugar closely while taking your prednisone steroid medication. 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 Prescriptions: Oxycodone HCl/Acetaminophen [Percocet 5-325 mg Tablet] 1 each PO Q8H PRN PRN #6 tablet MDD 3 PRN Reason: Moderate To Severe Pain Prednisone 10 mg [Deltasone 10 mg] 10 mg PO TID #12 tablet Potassium Chloride Tab* [Klor Con] 10 meq PO BID #4 tab
[2023-04-23] MEDS ORDERED: MORPHINE SULFATE 4 MG INJ IV ONE (19:35)
[2023-04-23] MEDS ORDERED: Zofran 4 MG/2 ML VIAL IV ONE (19:35)
[2023-04-23] MEDS ORDERED: Zofran 4 MG/2 ML VIAL ONE (19:36)
[2023-04-23] MEDS ORDERED: MORPHINE SULFATE 4 MG INJ ONE (19:36)
[2023-04-23 19:51] LABS: Absolute Neutrophil Ct (ANC) 5.82 x10^3/uL (1.4-6.9); BASOPHIL % 0.4 % (0.0-0.4); Basophil (Absolute #) 0.04 x10^3/uL (0-0.4); Eosinophil % 1.2 % (0.00-5.0); Eosinophil (Absolute #) 0.11 x10^3/uL (0-0.5); Hematocrit 41.3 % (35-47); Hemoglobin 13.8 g/dL (12.0-16.0); IMMATURE GRAN # 0.03 x10^3u/L (0.00-0.03); IMMATURE GRAN % 0.3 % (0.00-0.4); Lymphocyte (Absolute #) 2.43 x10^3/uL (1.0-4.6); Lymphocytes % 26.8 % (24.0-44.0); Mean Cell Volume 89.6 fL (78-100); Mean Corpuscular Hemoglobin 29.9 pg (26-32); Mean Corpuscular Hgb Concent. 33.4 g/dL (32-36); Mean Platelet Volume 11.1 fL (7.5-11.0); Monocyte (Absolute #) 0.64 x10^3/uL (0.0-1.3); Monocytes % 7.1 % (0.0-12.0); Neutrophil % 64.2 % (36.0-66.0); Platelet Count 266 x10^3/uL (150-450); Red Blood Count 4.61 x10^6/uL (4.1-5.4); Red Cell Distribution Width 14.2 % (11.5-14.0); White Blood Count 9.1 x10^3/uL (4.0-10.5)
[2023-04-23 20:14] LABS: ALBUMIN 4.1 g/dL (3.5-5.0); ANION GAP 12.9 MEQ/L (5-15); BILIRUBIN,TOTAL 1.2 mg/dL (0.2-1.3); Calcium 9.6 mg/dL (8.4-10.2); Creatinine 1 0.97 mg/dL (0.52-1.04); EST GLOMERULAR FILTRATION RATE 65.3 ML/MIN; Potassium 3.1 mmol/L (3.5-5.1)
[2023-04-23] MEDS ORDERED: Klor Con PO ONE ×2 (20:18→20:47)
[2023-04-23] MEDS ORDERED: Sodium Chloride 0.9% 500 ML 500 ML IV ONE ×2 (20:52→21:03)
[2023-04-23 22:08] VITALS: BP 100/56; PULSE 74; RESP 23; O2SAT 96
[2023-04-23] MEDS ORDERED: PERCOCET TABLET 5/325MG PO STA (22:09)
[2023-04-23] MEDS ORDERED: PERCOCET TABLET 5/325MG ONE (22:21)
--- NOTE | 2023-04-24 08:33 | XRAY ---
Indication: Left face/jaw/head pain 5 hours. Multiple contiguous axial images obtained through the head without contrast. Comparison: May 29, 2022 Normal appearing brain parenchyma, ventricles, and bony calvarium for patient's age. Visualized paranasal sinuses and mastoid air cells are clear. Impression: Continued normal CT head without contrast exam.
--- NOTE | 2023-04-24 08:35 | XRAY ---
Indication: Left face/jaw/head pain 5 hours. Multiple contiguous axial images obtained through the facial bones. Sagittal and coronal reformatted images obtained. Comparison: None No acute fracture, suspicious bony lesions, or osseous destructive process. Orbits including roof, mayfield, and floors intact. Paranasal sinuses and nasal passages are clear. Minimal nasal septal deviation to the left. Mild left TMJ degenerative changes. Visualized cervical spine intact. Incidental bilateral exophthalmos. Remaining visualized noncontrasted soft tissues are unremarkable. Impression: Bilateral exophthalmos, minimal nasal septal deviation, and mild left TMJ degenerative changes. Remaining CT facial bones negative.
--- NOTE | 2023-04-24 08:43 | XRAY ---
Indication: Short of breath. Elevated d-dimer. Multiple contiguous axial images obtained through the chest using 80 cc Isovue 370 contrast and PE protocol. Comparison: June 21, 2022 Good opacification of the pulmonary arteries to include the lobar and segmental branches. No pulmonary embolus. Heart not enlarged. Aorta is normal in course and caliber. No pathologic mediastinal/hilar lymphadenopathy. Again small hiatal hernia. Lungs demonstrate minimal bibasilar dependent atelectasis. No suspicious pulmonary mass/nodule, infiltrate, effusion, or pneumothorax. Bony thorax intact again with mild degenerative changes throughout the spine. Limited upper abdomen again demonstrates fatty liver with 4 mm hepatic cyst. Impression: 1. Continued negative pulmonary embolus. No new/acute cardiopulmonary abnormalities. 2. Again chronic findings including hiatal hernia, degenerative spondylosis, fatty liver, and hepatic cyst.
== END 2023-04-23 22:42 | disposition home or self-care (01) ==
LOC: ED 18:56
DX: E87.6 Hypokalemia (principal); M26.642 Arthritis of left temporomandibular joint; R51.9 Headache, unspecified; I10 Essential (primary) hypertension; E78.5 Hyperlipidemia, unspecified; Z79.52 Long term (current) use of systemic steroids; Z79.891 Long term (current) use of opiate analgesic; Z79.85 Long-term (current) use of injectable non-insulin antidiabetic drugs; Z79.899 Other long term (current) drug therapy
CPT/HCPCS: 36000; 36415; 70450; 70486; 71260; 80053; 84484; 85025; 85379; 93005; 93041; 94760; 96360; 96374; 96375; 99284; J2270; J2405; A9270-GY

== ENCOUNTER 2023-07-28 14:20 | Emergency (ER) | payer MEDICARE ==
--- NOTE | 2023-07-28 14:32 | ERPHSYRPT ---
- History of Present Illness Time Seen by Provider: 07/28/23 14:32 Historian: patient Exam Limitations: no limitations Physician History: This is a morbidly obese 63-year-old white female patient who states that she has had 5 weeks of intermittent bilateral lower quadrant abdominal pain. She has been evaluated several times in different emergency departments and no ac wrangell, emergent issue has been found. Patient stated approximately 4 months ago patient underwent a colonoscopy. Per her report, she states this study was normal. Patient does have a history of either diverticulitis or diverticulosis. She does not recall which one. She was also told in the past that she had pancreatitis. Patient is status post appendectomy as well as MELISSA/BSO in the past. Patient has nausea but has not had any vomiting. She denies diarrhea. Patient has a history of hypertension, hyperlipidemia, anxiety issues, hypoglycemia and peptic ulcer disease. There is been no new medications. Patient does state that she has had some gastroesophageal reflux symptoms. She is not on any medication for this. Patient still has her gallbladder in place and has been told in the past to have this evaluated. She is not having any upper quadrant abdominal pain. Timing/Duration: week(s) (5), other (Not necessarily worse just persistent) Quality: aching Abdominal Pain Onset Location: RLQ, LLQ Pain Radiation: no radiation Severity of Pain-Max: moderate Severity of Pain-Current: moderate Modifying Factors: Improves With: other (Nausea but no vomiting) Associated Symptoms: heartburn, nausea, No chest pain, No diarrhea, No shortness of breath, No vomiting Previous symptoms: same symptoms as today, recently seen Allergies/Adverse Reactions: Sulfa (Sulfonamide Antibiotics) Allergy (Verified 04/23/23 19:27) Beta-Blockers (Beta-Adrenergic Bloc Adverse Reaction (Verified 04/23/23 19:27) bupropion [From Wellbutrin] Adverse Reaction (Verified 04/23/23 19:27) Home Medications: Losartan Potassium [Cozaar] 100 mg PO DAILY 10/29/19 [History] Nitroglycerin 0.4 mg Tablet [Nitrostat 0.4 MG Tablet] 0.4 mg SL Q5MIN PRN MR X 3 PRN 12/25/19 [History] Furosemide 20 mg [Lasix 20 mg] 20 mg PO DAILY PRN PRN 10/24/21 [History] Ranolazine [Ranolazine ER] 1,000 mg PO BID 10/24/21 [History] Triamterene/Hydrochlorothiazid [Triamterene-Hctz 37.5-25 mg Tb] 1 tab PO DAILY 10/24/21 [History] Aspirin [Low Dose Aspirin EC] 81 mg PO DAILY 12/28/21 [History] Primidone 50 MG [Mysoline 50Mg] 100 mg PO HS 04/23/23 [History] Tirzepatide [Mounjaro] 7.5 mg SQ WEEKLY 04/23/23 [History] Hx Tetanus, Diphtheria Vaccination/Date Given: Yes Hx Influenza Vaccination/Date Given: Yes Hx Pneumococcal Vaccination/Date Given: Yes Travel Risk - International Travel Have you traveled outside of the country in past 3 weeks: No - Emerging Infectious Disease Are you exhibiting symptoms associated with any current EIDs: No - Review of Systems Constitutional: No Symptoms Eyes: No Symptoms Ears, Nose, & Throat: No Symptoms Respiratory: No Symptoms Cardiac: No Symptoms Abdominal/Gastrointestinal: Abdominal Pain (Lateral lower quadrants), Nausea, Constipation, No Vomiting Genitourinary Symptoms: No Symptoms Musculoskeletal: No Symptoms Skin: No Symptoms Neurological: No Symptoms Psychological: No Symptoms Endocrine: No Symptoms Hematologic/Lymphatic: No Symptoms Immunological/Allergic: No Symptoms All Other Systems: Reviewed and Negative - Past Medical History Pertinent Past Medical History: Yes Neurological History: No Pertinent History ENT History: Glaucoma Cardiac History: High Cholesterol, Hypertension, Myocardial Infarction ([place]) Respiratory History: No Pertinent History Endocrine Medical History: Hypoglycemia Musculoskeletal History: Fractures GI Medical History: Ulcer History: Other Psycho-Social History: Anxiety, Depression Female Reproductive Disorders: No Pertinent History Other Medical History: Sleep apnea, "hardened heart muscle", kidney cysts - Past Surgical History Past Surgical History: Yes Neuro Surgical History: No Pertinent History Cardiac: Cardiac Catheterization Respiratory: No Pertinent History Gastrointestinal: Appendectomy Genitourinary: No Pertinent History Musculoskeletal: Orthopedic Surgery Female Surgical History: Hysterectomy - Social History Smoking Status: Never smoker Exposure to second hand smoke: No Drug Use: none Patient Lives Alone: No - Nursing Vital Signs Nursing Vital Signs: Initial Vital Signs Temperature 97.6 F 07/28/23 14:29 Pulse Rate 93 H 07/28/23 14:29 Respiratory Rate 20 07/28/23 14:29 Blood Pressure 150/97 07/28/23 14:29 O2 Sat by Pulse Oximetry 97 07/28/23 14:29 Pain Scale Pain Intensity 2 - Physical Exam General Appearance: no apparent distress, alert, anxiety, obese Eye Exam: PERRL/EOMI, eyes nml inspection Ears, Nose, Throat Exam: normal ENT inspection, moist mucous membranes Neck Exam: normal inspection, non-tender, supple, full range of motion Respiratory Exam: normal breath sounds, lungs clear, airway intact, No chest tenderness, No respiratory distress Cardiovascular Exam: regular rate/rhythm, normal heart sounds, normal peripheral pulses Gastrointestinal/Abdomen Exam: soft, normal bowel sounds, tenderness (Mild tenderness to palpation bilateral lower quadrants.), No guarding, No rebound Pelvic Exam: not done Rectal Exam: not done Back Exam: normal inspection, normal range of motion, No CVA tenderness, No vertebral tenderness Extremity Exam: normal inspection, normal range of motion, pelvis stable Neurologic Exam: alert, oriented x 3, cooperative, 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, normal mood/affect, nml cerebellar function, nml station & gait, sensation nml Skin Exam: normal color, warm, dry Lymphatic Exam: No adenopathy SpO2 Interpretation: normal O2 Delivery: Room Air - Course Nursing assessment & vital signs reviewed: Yes EKG Interpreted by Me: RATE (96), Sinus Rhythm, NORMAL AXIS, NORMAL INTERVALS, NORMAL QRS, NORMAL ST-T, Other (No acute ischemic changes on today's twelve-lead EKG.) Ordered Tests: Active Orders 24 hr Category Date Time Status IV Insertion STAT Care 07/28/23 15:22 Active ABDOMEN AND PELVIS W/0 CONTRAS [CT] Stat Exams 07/28/23 15:23 Completed AMYLASE Stat Lab 07/28/23 15:00 Completed CBC W DIFF Stat Lab 07/28/23 15:00 Completed CMP Stat Lab 07/28/23 15:00 Completed LIPASE Stat Lab 07/28/23 15:00 Completed Lactic Acid Stat Lab 07/28/23 15:37 Completed UA W/RFX UR CULTURE Stat Lab 07/28/23 15:26 Completed Medication Summary Discontinued Medications Generic Name Dose Route Start Last Admin Trade Name Freq PRN Reason Stop Dose Admin Hydromorphone HCl 1 mg 07/28/23 16:31 07/28/23 16:33 Hydromorphone 1 Mg/1ml Inj IV 07/28/23 16:32 1 mg STAT ONE Administration Hydromorphone HCl Confirm 07/28/23 16:33 Hydromorphone 1 Mg/1ml Inj Administered 07/28/23 16:34 Dose 1 mg .ROUTE .STK-MED ONE Sodium Chloride 1,000 mls @ 999 mls/hr 07/28/23 15:22 07/28/23 16:49 Sodium Chloride 0.9% 1000 Ml IV 07/28/23 16:22 Infused .Q1H1M STA Infusion Sodium Chloride Confirm 07/28/23 15:29 Sodium Chloride 0.9% 1000 Ml Administered 07/28/23 15:30 Dose 1,000 mls @ ud .ROUTE .STK-MED ONE Ondansetron HCl 4 mg 07/28/23 15:22 07/28/23 15:31 Ondansetron Hcl 4 Mg/2 Ml Vial IV 07/28/23 15:23 4 mg STAT ONE Administration Ondansetron HCl Confirm 07/28/23 15:29 Ondansetron Hcl 4 Mg/2 Ml Vial Administered 07/28/23 15:30 Dose 4 mg .ROUTE .STK-MED ONE Lab/Rad Data: Laboratory Result Diagrams 07/28/23 15:00 07/28/23 15:00 Laboratory Results 07/28/23 07/28/23 07/28/23 Range/Units 15:37 15:26 15:00 WBC (4.0-10.5) x10^3/uL RBC (4.1-5.4) x10^6/uL Hgb (12.0-16.0) g/dL Hct (35-47) % MCV (78-100) fL MCH (26-32) pg MCHC (32-36) g/dL RDW (11.5-14.0) % Plt Count (150-450) x10^3/uL MPV (7.5-11.0) fL Gran % (36.0-66.0) % Immature Gran % (Auto) (0.00-0.4) % Nucleat RBC Rel Count (0.00-0.1) % Eos # (Auto) (0-0.5) x10^3/uL Immature Gran # (Auto) (0.00-0.03) x10^3u/L Absolute Lymphs (auto) (1.0-4.6) x10^3/uL Absolute Monos (auto) (0.0-1.3) x10^3/uL Absolute Nucleated RBC (0.00-0.01) x10^3u/L Lymphocytes % (24.0-44.0) % Monocytes % (0.0-12.0) % Eosinophils % (0.00-5.0) % Basophils % (0.0-0.4) % Absolute Granulocytes (1.4-6.9) x10^3/uL Basophils # (0-0.4) x10^3/uL Sodium 141 (135-145) mmol/L Potassium 3.6 (3.5-5.1) mmol/L Chloride 107 (98-107) mmol/L Carbon Dioxide 27 (22-30) mmol/L Anion Gap 10.7 (5-15) MEQ/L BUN 20 H (7-17) mg/dL Creatinine 1.03 (0.52-1.04) mg/dL Estimated GFR 60.3 ML/MIN Glucose 94 (74-106) mg/dL Lactic Acid 1.3 (0.4-2.0) Calcium 9.1 (8.4-10.2) mg/dL Total Bilirubin 0.80 (0.2-1.3) mg/dL AST 27 (14-36) U/L ALT 20 (0-35) U/L Alkaline Phosphatase 119 (38-126) U/L Serum Total Protein 7.6 (6.3-8.2) g/dL Albumin 3.8 (3.5-5.0) g/dL Amylase 66 (30-110) U/L Lipase 74 (23-300) U/L Urine Color Yellow (Yellow) Urine Appearance Clear (Clear) Urine pH 7.0 (4.6-8.0) Ur Specific [place] <=1.005 (1.005-1.030) Urine Protein Negative (Negative) Urine Glucose (UA) Negative (Negative) mg/dL Urine Ketones Negative (Negative) Urine Blood Negative (Negative) Urine Nitrite Negative (Negative) Urine Bilirubin Negative (Negative) Urine Urobilinogen 0.2 (0.2) mg/dL Ur Leukocyte Esterase Negative (Negative) U Hyaline Cast (Auto) NONE SEEN (0-2) /LPF Urine Microscopic RBC 0-2 (0-5) /HPF Urine Microscopic WBC 0-2 (0-5) /HPF Ur Epithelial Cells None Seen (None Seen) /HPF Urine Bacteria None Seen (None Seen) /HPF Urine Culture Reflexed NO (NO) 07/28/23 Range/Units 15:00 WBC 9.1 (4.0-10.5) x10^3/uL RBC 4.81 (4.1-5.4) x10^6/uL Hgb 14.1 (12.0-16.0) g/dL Hct 42.8 (35-47) % MCV 89.0 (78-100) fL MCH 29.3 (26-32) pg MCHC 32.9 (32-36) g/dL RDW 14.2 H (11.5-14.0) % Plt Count 258 (150-450) x10^3/uL MPV 11.2 H (7.5-11.0) fL Gran % 62.0 (36.0-66.0) % Immature Gran % (Auto) 0.3 (0.00-0.4) % Nucleat RBC Rel Count 0.0 (0.00-0.1) % Eos # (Auto) 0.15 (0-0.5) x10^3/uL Immature Gran # (Auto) 0.03 (0.00-0.03) x10^3u/L Absolute Lymphs (auto) 2.39 (1.0-4.6) x10^3/uL Absolute Monos (auto) 0.82 (0.0-1.3) x10^3/uL Absolute Nucleated RBC 0.00 (0.00-0.01) x10^3u/L Lymphocytes % 26.4 (24.0-44.0) % Monocytes % 9.0 (0.0-12.0) % Eosinophils % 1.7 (0.00-5.0) % Basophils % 0.6 (0.0-0.4) % Absolute Granulocytes 5.63 (1.4-6.9) x10^3/uL Basophils # 0.05 (0-0.4) x10^3/uL Sodium (135-145) mmol/L Potassium (3.5-5.1) mmol/L Chloride (98-107) mmol/L Carbon Dioxide (22-30) mmol/L Anion Gap (5-15) MEQ/L BUN (7-17) mg/dL Creatinine (0.52-1.04) mg/dL Estimated GFR ML/MIN Glucose (74-106) mg/dL Lactic Acid (0.4-2.0) Calcium (8.4-10.2) mg/dL Total Bilirubin (0.2-1.3) mg/dL AST (14-36) U/L ALT (0-35) U/L Alkaline Phosphatase (38-126) U/L Serum Total Protein (6.3-8.2) g/dL Albumin (3.5-5.0) g/dL Amylase (30-110) U/L Lipase (23-300) U/L Urine Color (Yellow) Urine Appearance (Clear) Urine pH (4.6-8.0) Ur Specific [place] (1.005-1.030) Urine Protein (Negative) Urine Glucose (UA) (Negative) mg/dL Urine Ketones (Negative) Urine Blood (Negative) Urine Nitrite (Negative) Urine Bilirubin (Negative) Urine Urobilinogen (0.2) mg/dL Ur Leukocyte Esterase (Negative) U Hyaline Cast (Auto) (0-2) /LPF Urine Microscopic RBC (0-5) /HPF Urine Microscopic WBC (0-5) /HPF Ur Epithelial Cells (None Seen) /HPF Urine Bacteria (None Seen) /HPF Urine Culture Reflexed (NO) - Progress Progress: improved, pain not gone completely, re-examined Progress Note: 07/28/23 15:42 My medical decision making and the assignment of this patient's medical issue today of moderate complexity is based on review of the patient's past medical history, review of the patient's medication list, history present illness and physical findings on examination. The workup includes placement of intravenous line, infusion of normal saline solution, infusion of Protonix intravenously, infusion of Zofran 4 mg intravenously, CBC, CMP, amylase, lipase, urinalysis, twelve-lead EKG, CT scan of the abdomen pelvis without contrast. Patient drove herself into this facility and states she can get a ride and will let us know if she desires narcotic pain medication dose. Differential diagnosis includes pancreatitis, bowel obstruction, diverticulitis, other intra-abdominal or intrapelvic abnormality. 07/28/23 17:14 I interpreted the patient's laboratory data results. The patient does not have any acute, emergent medical issues based on her laboratory data results. CT scan of the abdomen pelvis without contrast was interpreted by the radiologist and I reviewed the impression. Impression states chronic findings of hiatal hernia, colonic diverticulosis, fatty liver, bilateral renal cyst and degenerative spondylosis. There is no abdominal aortic aneurysm. There is no new or acute findings on this noncontrast exam. There is no free air or free f luid present. Counseled pt/family regarding: lab results, diagnosis, need for follow-up, rad results Medical Desision Making - Diagnostic Testing Diagnostic test were ordered, analyzed, and reviewed by me: Yes Radiological Interpretation: Reviewed by me, Teleradiologist Report - Risk of complications Low Risk: Low risk of morbidity from additional dx testing or treatment - Departure Departure Disposition: Home Clinical Impression: Chronic abdominal pain Condition: Stable Critical Care Time: No Referrals: ZENAIDA DANGELO NP [Primary Care Provider] - Follow up/PCP as directed Additional Instructions: Drink plenty of fluids before advancing your diet. 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 Continue all your medications as prescribed.
[2023-07-28 14:35] VITALS: TEMP 97.6
[2023-07-28 15:28] LABS: Absolute Neutrophil Ct (ANC) 5.63 x10^3/uL (1.4-6.9); BASOPHIL % 0.6 % (0.0-0.4); Basophil (Absolute #) 0.05 x10^3/uL (0-0.4); Eosinophil % 1.7 % (0.00-5.0); Eosinophil (Absolute #) 0.15 x10^3/uL (0-0.5); Hematocrit 42.8 % (35-47); Hemoglobin 14.1 g/dL (12.0-16.0); IMMATURE GRAN # 0.03 x10^3u/L (0.00-0.03); IMMATURE GRAN % 0.3 % (0.00-0.4); Lymphocyte (Absolute #) 2.39 x10^3/uL (1.0-4.6); Lymphocytes % 26.4 % (24.0-44.0); Mean Corpuscular Hemoglobin 29.3 pg (26-32); Mean Corpuscular Hgb Concent. 32.9 g/dL (32-36); Mean Platelet Volume 11.2 fL (7.5-11.0); Monocyte (Absolute #) 0.82 x10^3/uL (0.0-1.3); Platelet Count 258 x10^3/uL (150-450); Red Blood Count 4.81 x10^6/uL (4.1-5.4); Red Cell Distribution Width 14.2 % (11.5-14.0); White Blood Count 9.1 x10^3/uL (4.0-10.5)
[2023-07-28] MEDS ORDERED: Zofran 4 MG/2 ML VIAL ONE (15:29)
[2023-07-28] MEDS ORDERED: Sodium Chloride 0.9% 1000 ML 1,000 ML ONE (15:29)
[2023-07-28] MEDS: Sodium Chloride 0.9% 1000 ML 1,000 ML IV STA (15:31)
[2023-07-28] MEDS: Zofran 4 MG/2 ML VIAL IV ONE (15:31)
[2023-07-28 15:35] LABS: Appearance Clear (Clear); Bacteria None Seen /HPF (None Seen); Bilirubin Negative (Negative); Blood Negative (Negative); Epithelial Cells None Seen /HPF (None Seen); Glucose, Urine Negative (Negative); Hyaline Casts NONE SEEN /LPF (0-2); Ketones Negative (Negative); Leukocyte Esterase Negative (Negative); Nitrite Negative (Negative); Protein,Urine Dip Negative (Negative); RBC 0-2 /HPF (0-5); Specific Gravity <=1.005 (1.005-1.030); Urobilinogen 0.2 mg/dL (0.2); WBC 0-2 /HPF (0-5)
[2023-07-28 15:36] LABS: ADD URINE CULTURE? NO (NO)
[2023-07-28 15:54] LABS: ALBUMIN 3.8 g/dL (3.5-5.0); ANION GAP 10.7 MEQ/L (5-15); BILIRUBIN,TOTAL 0.8 mg/dL (0.2-1.3); Calcium 9.1 mg/dL (8.4-10.2); Creatinine 1 1.03 mg/dL (0.52-1.04); EST GLOMERULAR FILTRATION RATE 60.3 ML/MIN; Potassium 3.6 mmol/L (3.5-5.1); Total Protein 7.6 g/dL (6.3-8.2)
[2023-07-28] MEDS ORDERED: Hydromorphone 1 mg/ml Injection ONE (16:33)
[2023-07-28] MEDS: Hydromorphone 1 mg/ml Injection IV ONE (16:33)
--- NOTE | 2023-07-28 16:34 | XRAY ---
Indication: Bilateral lower quadrant pain. Nausea. Multiple contiguous axial images obtained through the abdomen and pelvis without contrast. Comparison: None Lung bases clear of infiltrate and effusion. Heart not enlarged. Stable small hiatal hernia. Noncontrasted stomach and bowel loops appear nonobstructed again with scattered diverticulosis without diverticulitis. Again fatty liver, bilateral renal parapelvic cysts, appendectomy, and hysterectomy. No free fluid/air. Remaining liver, gallbladder, pancreas, spleen, adrenal glands, kidneys, ureters, and bladder are unremarkable for noncontrast exam. Again mild aortoiliac calcifications without AAA. Osseous structures intact again with mild/moderate degenerative changes throughout thoracolumbar spine. Impression: Again chronic findings including hiatal hernia, colonic diverticulosis, fatty liver, bilateral renal cysts, arteriosclerotic disease, and degenerative spondylosis. No new/acute findings on this noncontrast exam.
[2023-07-28 17:13] VITALS: BP 88/45; PULSE 60; RESP 16; O2SAT 89
== END 2023-07-28 18:25 | disposition home or self-care (01) ==
LOC: ED 14:20
DX: G89.29 Other chronic pain (principal); R10.30 Lower abdominal pain, unspecified; R11.0 Nausea; I10 Essential (primary) hypertension; E78.5 Hyperlipidemia, unspecified; Z79.85 Long-term (current) use of injectable non-insulin antidiabetic drugs; Z79.899 Other long term (current) drug therapy
CPT/HCPCS: 36000; 36415; 74176; 80053; 81001; 82150; 83605; 83690; 85025; 96360; 96374; 96375; 99284; J1170; J2405

== ENCOUNTER 2023-10-11 18:52 | Emergency (ER) | payer MEDICARE ==
--- NOTE | 2023-10-11 19:24 | ERPHSYRPT ---
- History of Present Illness Time Seen by Provider: 10/11/23 19:24 Physician History: 63yo f presents via private vehicle for lower chest and epigastric discomfort x 3 wks. Pt reports this has been occurring intermittently, lasts for minutes to hours. Pt describes the pain as burning in her epigastric region, states that the pain does not radiate, reports the pain is worse at night. Pt reports significant life stressors recently, reports hx of [place] 5yrs ago. Pt denies any radiation of pain into shoulder, neck, back. Pt does report some tight musculature in her left neck that started yesterday but she does not associate w/ this epigastric discomfort. Timing/Duration: week(s) (3) Activities at Onset: emotional stress Quality: burning Location: epigastric Chest Pain Radiation: no radiation Severity of Pain-Max: moderate Severity of Pain-Current: mild Modifying Factors: Improves With: nothing Associated Symptoms: No nausea, No vomiting, No palpitations, No abdominal pain, No shortness of breath, No cough, No chills, No fever Prior Chest Pain/Cardiac Workup: heart attack Nitro Today/Relief: no nitro taken today Aspirin Treatment Today: 325 mg x 1, provided by ED Allergies/Adverse Reactions: Sulfa (Sulfonamide Antibiotics) Allergy (Verified 10/11/23 19:05) Beta-Blockers (Beta-Adrenergic Bloc Adverse Reaction (Verified 10/11/23 19:05) bupropion [From Wellbutrin] Adverse Reaction (Verified 10/11/23 19:05) Home Medications: Losartan Potassium [Cozaar] 100 mg PO DAILY 10/29/19 [History] Nitroglycerin 0.4 mg Tablet [Nitrostat 0.4 MG Tablet] 0.4 mg SL Q5MIN PRN MR X 3 PRN 12/25/19 [History] Furosemide 20 mg [Lasix 20 mg] 20 mg PO DAILY PRN PRN 10/24/21 [History] Triamterene/Hydrochlorothiazid [Triamterene-Hctz 37.5-25 mg Tb] 1 tab PO DAILY 10/24/21 [History] Aspirin [Low Dose Aspirin EC] 81 mg PO DAILY 12/28/21 [History] Atorvastatin Calcium 40 mg PO DAILY 10/11/23 [History] carvediloL [Carvedilol] See Rx Instructions .ROUTE .COMPLEX 10/11/23 [History] Hx Tetanus, Diphtheria Vaccination/Date Given: Yes Hx Influenza Vaccination/Date Given: Yes Hx Pneumococcal Vaccination/Date Given: Yes Travel Risk - Emerging Infectious Disease Are you exhibiting symptoms associated with any current EIDs: No - Review of Systems Constitutional: No Symptoms Respiratory: No Symptoms Cardiac: No Symptoms Abdominal/Gastrointestinal: Abdominal Pain (epigastric), No Nausea, No Vomiting Genitourinary Symptoms: No Symptoms - Past Medical History Pertinent Past Medical History: Yes Neurological History: No Pertinent History ENT History: Glaucoma Cardiac History: High Cholesterol, Hypertension, Myocardial Infarction ([place]) Respiratory History: No Pertinent History Endocrine Medical History: Hypoglycemia Musculoskeletal History: Fractures GI Medical History: Ulcer History: Other Psycho-Social History: Anxiety, Depression Female Reproductive Disorders: No Pertinent History Other Medical History: Sleep apnea, "hardened heart muscle", kidney cysts - Past Surgical History Past Surgical History: Yes Neuro Surgical History: No Pertinent History Cardiac: Cardiac Catheterization Respiratory: No Pertinent History Gastrointestinal: Appendectomy Genitourinary: No Pertinent History Musculoskeletal: Orthopedic Surgery Female Surgical History: Hysterectomy - Social History Smoking Status: Never smoker Exposure to second hand smoke: No Drug Use: none Patient Lives Alone: No - Social Determinants of Health Will the patient participate in the screening: Yes Do you worry about a steady place to live?: No In the past 12 months,have you had to go without utilities?: No Transportation Issues: No Has anyone in your support network made you feel unsafe?: No Have you or anyone in your house had to go without enough: No - Nursing Vital Signs Nursing Vital Signs: Initial Vital Signs Temperature 97.5 F 10/11/23 18:53 Pulse Rate 53 L 10/11/23 18:53 Respiratory Rate 16 10/11/23 18:53 Blood Pressure 106/61 10/11/23 18:53 O2 Sat by Pulse Oximetry 99 10/11/23 18:53 Pain Scale Pain Intensity 2 - Physical Exam General Appearance: no apparent distress, alert, anxiety Respiratory Exam: normal breath sounds, lungs clear, airway intact, No chest tenderness, No respiratory distress Cardiovascular Exam: regular rate/rhythm, normal heart sounds, normal peripheral pulses Gastrointestinal/Abdomen Exam: soft, normal bowel sounds, No tenderness, No distention Neurologic Exam: alert, oriented x 3, cooperative, normal mood/affect Skin Exam: normal color SpO2 Interpretation: normal O2 Delivery: Room Air - Course EKG Interpreted by Me: RATE (46), Sinus Tobin, Other (pr 154, qtcb 394, not suggestive of acute ischemia) Ordered Tests: Active Orders 24 hr Category Date Time Status EKG-ER Only STAT Care 10/11/23 19:24 Active CHEST 2 VIEWS (PA AND LAT) Stat Exams 10/11/23 19:24 Completed CBC W DIFF Stat Lab 10/11/23 20:07 Completed CMP Stat Lab 10/11/23 20:07 Completed NT PRO BNPII Stat Lab 10/11/23 20:07 Completed TROPONIN Q4H Lab 10/11/23 20:07 Completed TROPONIN Q4H Lab 10/11/23 22:06 Completed TROPONIN Q4H Lab 10/12/23 03:30 Ordered UA W/RFX UR CULTURE Stat Lab 10/11/23 22:06 Completed Medication Summary Discontinued Medications Generic Name Dose Route Start Last Admin Trade Name Freq PRN Reason Stop Dose Admin Aspirin 324 mg 10/11/23 19:24 10/11/23 19:38 Aspirin 81 Mg Tab.Chew PO 10/11/23 19:25 324 mg STAT ONE Administration Aspirin Confirm 10/11/23 19:37 Aspirin 81 Mg Tab.Chew Administered 10/11/23 19:38 Dose 324 mg .ROUTE .STK-MED ONE Famotidine 20 mg 10/11/23 19:38 10/11/23 19:49 Famotidine 20 Mg/1 Vial IV 10/11/23 19:39 20 mg STAT ONE Administration Famotidine Confirm 10/11/23 19:47 Famotidine 20 Mg/1 Vial Administered 10/11/23 19:48 Dose 20 mg IV .STK-MED ONE Lorazepam 0.5 mg 10/11/23 19:38 10/11/23 19:51 Lorazepam 0.5 Mg Tablet PO 10/11/23 19:39 Not Given STAT ONE Lorazepam 0.5 mg 10/11/23 19:49 10/11/23 19:50 Lorazepam 1 Mg Tablet PO 10/11/23 19:50 0.5 mg STAT ONE Administration Lorazepam Confirm 10/11/23 19:47 Lorazepam 1 Mg Tablet Administered 10/11/23 19:48 Dose 1 mg .ROUTE .STK-MED ONE Lab/Rad Data: Laboratory Result Diagrams 10/11/23 20:07 10/11/23 20:07 Laboratory Results 10/11/23 10/11/23 10/11/23 Range/Units 22:06 22:06 20:07 WBC (3.98-10.04) x10^3/uL RBC (3.93-5.22) x10^6/uL Hgb (11.2-15.7) g/dL Hct (34.1-44.9) % MCV (79.4-94.8) fL MCH (25.6-32.2) pg MCHC (32.2-35.5) g/dL RDW (11.7-14.4) % Plt Count (182-369) x10^3/uL MPV (9.4-12.3) fL Gran % (34.0-71.1) % Immature Gran % (Auto) (0.001-0.429) % Nucleat RBC Rel Count (0.00-0.2) % Eos # (Auto) (0.04-0.36) x10^3/uL Immature Gran # (Auto) (0.001-0.031) x10^3u/L Absolute Lymphs (auto) (1.18-3.74) x10^3/uL Absolute Monos (auto) (0.24-0.86) x10^3/uL Absolute Nucleated RBC (0.00-0.012) x10^3u/L Lymphocytes % (19.3-51.7) % Monocytes % (4.7-12.5) % Eosinophils % (0.7-5.8) % Basophils % (0.1-1.2) % Absolute Granulocytes (1.56-6.13) x10^3/uL Basophils # (0.01-0.08) x10^3/uL Sodium (135-145) mmol/L Potassium (3.5-5.1) mmol/L Chloride (98-107) mmol/L Carbon Dioxide (22-30) mmol/L Anion Gap (5-15) MEQ/L BUN (7-17) mg/dL Creatinine (0.52-1.04) mg/dL Estimated GFR ML/MIN Glucose (74-106) mg/dL Calcium (8.4-10.2) mg/dL Total Bilirubin (0.2-1.3) mg/dL AST (14-36) U/L ALT (0-35) U/L Alkaline Phosphatase (38-126) U/L Troponin I < 0.012 (0.000-0.033) ng/mL NT-Pro-B Natriuret Pep 41.1 (<300) pg/mL Serum Total Protein (6.3-8.2) g/dL Albumin (3.5-5.0) g/dL Urine Color Yellow (Yellow) Urine Appearance Clear (Clear) Urine pH 5.5 (4.6-8.0) Ur Specific [place] 1.025 (1.005-1.030) Urine Protein Negative (Negative) Urine Glucose (UA) Negative (Negative) mg/dL Urine Ketones Negative (Negative) Urine Blood Negative (Negative) Urine Nitrite Negative (Negative) Urine Bilirubin Negative (Negative) Urine Urobilinogen 1.0 A (0.2) mg/dL Ur Leukocyte Esterase Negative (Negative) U Hyaline Cast (Auto) 6-10 A (0-2) /LPF Urine Microscopic RBC 0-2 (0-5) /HPF Urine Microscopic WBC 6-10 A (0-5) /HPF Ur Epithelial Cells Few (None Seen) /HPF Urine Bacteria Few A (None Seen) /HPF Urine Culture Reflexed NO (NO) 10/11/23 10/11/23 10/11/23 Range/Units 20:07 20:07 20:07 WBC 10.3 H (3.98-10.04) x10^3/uL RBC 4.65 (3.93-5.22) x10^6/uL Hgb 13.8 (11.2-15.7) g/dL Hct 41.5 (34.1-44.9) % MCV 89.2 (79.4-94.8) fL MCH 29.7 (25.6-32.2) pg MCHC 33.3 (32.2-35.5) g/dL RDW 14.8 H (11.7-14.4) % Plt Count 268 (182-369) x10^3/uL MPV 10.5 (9.4-12.3) fL Gran % 67.8 (34.0-71.1) % Immature Gran % (Auto) 0.3 (0.001-0.429) % Nucleat RBC Rel Count 0.0 (0.00-0.2) % Eos # (Auto) 0.10 (0.04-0.36) x10^3/uL Immature Gran # (Auto) 0.03 (0.001-0.031) x10^3u/L Absolute Lymphs (auto) 2.44 (1.18-3.74) x10^3/uL Absolute Monos (auto) 0.71 (0.24-0.86) x10^3/uL Absolute Nucleated RBC 0.00 (0.00-0.012) x10^3u/L Lymphocytes % 23.8 (19.3-51.7) % Monocytes % 6.9 (4.7-12.5) % Eosinophils % 1.0 (0.7-5.8) % Basophils % 0.2 (0.1-1.2) % Absolute Granulocytes 6.95 H (1.56-6.13) x10^3/uL Basophils # 0.02 (0.01-0.08) x10^3/uL Sodium 137 (135-145) mmol/L Potassium 3.6 (3.5-5.1) mmol/L Chloride 105 (98-107) mmol/L Carbon Dioxide 23 (22-30) mmol/L Anion Gap 12.9 (5-15) MEQ/L BUN 37 H (7-17) mg/dL Creatinine 1.20 H (0.52-1.04) mg/dL Estimated GFR 50.2 ML/MIN Glucose 116 H (74-106) mg/dL Calcium 9.3 (8.4-10.2) mg/dL Total Bilirubin 1.10 (0.2-1.3) mg/dL AST 19 (14-36) U/L ALT 15 (0-35) U/L Alkaline Phosphatase 104 (38-126) U/L Troponin I < 0.012 (0.000-0.033) ng/mL NT-Pro-B Natriuret Pep (<300) pg/mL Serum Total Protein 7.2 (6.3-8.2) g/dL Albumin 4.0 (3.5-5.0) g/dL Urine Color (Yellow) Urine Appearance (Clear) Urine pH (4.6-8.0) Ur Specific [place] (1.005-1.030) Urine Protein (Negative) Urine Glucose (UA) (Negative) mg/dL Urine Ketones (Negative) Urine Blood (Negative) Urine Nitrite (Negative) Urine Bilirubin (Negative) Urine Urobilinogen (0.2) mg/dL Ur Leukocyte Esterase (Negative) U Hyaline Cast (Auto) (0-2) /LPF Urine Microscopic RBC (0-5) /HPF Urine Microscopic WBC (0-5) /HPF Ur Epithelial Cells (None Seen) /HPF Urine Bacteria (None Seen) /HPF Urine Culture Reflexed (NO) - Progress Progress: improved Air Movement: good Progress Note: 10/11/23 20:56 feeling better after dose of ativan initial trop negative, will repeat in 2h cxr negative 10/11/23 22:44 HEART score 3 likely 2/2 gastric pathology in combination w/ anxiety in setting of hx of ulcer and hiatal hernia pain resolved, breathing normal, anxiety resolved troponins negative x 2 pt has been intermittently bradycardic into the mid 40s, does take carvedilol, asymptomatic plan for dc home w/ close PCP ([facility]) and Cardiology ([facility]) follow up - instructed to call both offices friday will dc home w/ prescription for omeprazole for reflux, 1 tablet of 1mg ativan to be broken in half and taken for acute anxiety recommend avoiding spicy foods, avoid lying flat directly after eating, avoid stressful situations as possible return to ED if: develop worsening cp, develop singificant shortness of breath Blood Culture(s) Obtained: No Antibiotics given: No Medical Desision Making - Diagnostic Testing Diagnostic test were ordered, analyzed, and reviewed by me: Yes Radiological Interpretation: Interpreted by me, Reviewed by me - Risk of complications Low Risk: Low risk of morbidity from additional dx testing or treatment - Departure Departure Disposition: Home Clinical Impression: Epigastric pain, Anxiety, Asymptomatic bradycardia Condition: Stable Critical Care Time: No Referrals: ZENAIDA DANGELO NP [Primary Care Provider] - Follow up/PCP as directed Additional Instructions: plan for dc home w/ close PCP ([facility]) and Cardiology ([facility]) follow up - instructed to call both offices friday will dc home w/ prescription for omeprazole for reflux, 1 tablet of 1mg ativan to be broken in half and taken for acute anxiety recommend avoiding spicy foods, avoid lying flat directly after eating, avoid stressful situations as possible return to ED if: develop worsening cp, develop singificant shortness of breath Prescriptions: Omeprazole 10 mg PO DAILY #30 cap
[2023-10-11 19:25] VITALS: TEMP 97.5
[2023-10-11] MEDS ORDERED: BABY ASPIRIN 81 MG CHEW ONE (19:37)
[2023-10-11] MEDS: BABY ASPIRIN 81 MG CHEW PO ONE (19:38)
[2023-10-11] MEDS ORDERED: Pepcid 20 MG VIAL IV ONE (19:47)
[2023-10-11] MEDS ORDERED: Ativan 1 MG ONE ×2 (19:47→22:56)
[2023-10-11] MEDS: Pepcid 20 MG VIAL IV ONE (19:49)
[2023-10-11] MEDS: Ativan 1 MG PO ONE (19:50)
[2023-10-11] MEDS: Ativan 0.5 MG PO ONE (19:51)
[2023-10-11 20:10] LABS: Absolute Neutrophil Ct (ANC) 6.95 x10^3/uL (1.56-6.13); BASOPHIL % 0.2 % (0.1-1.2); Basophil (Absolute #) 0.02 x10^3/uL (0.01-0.08); Hematocrit 41.5 % (34.1-44.9); Hemoglobin 13.8 g/dL (11.2-15.7); IMMATURE GRAN # 0.03 x10^3u/L (0.001-0.031); IMMATURE GRAN % 0.3 % (0.001-0.429); Lymphocyte (Absolute #) 2.44 x10^3/uL (1.18-3.74); Lymphocytes % 23.8 % (19.3-51.7); Mean Cell Volume 89.2 fL (79.4-94.8); Mean Corpuscular Hemoglobin 29.7 pg (25.6-32.2); Mean Corpuscular Hgb Concent. 33.3 g/dL (32.2-35.5); Mean Platelet Volume 10.5 fL (9.4-12.3); Monocyte (Absolute #) 0.71 x10^3/uL (0.24-0.86); Monocytes % 6.9 % (4.7-12.5); Neutrophil % 67.8 % (34.0-71.1); Platelet Count 268 x10^3/uL (182-369); Red Blood Count 4.65 x10^6/uL (3.93-5.22); Red Cell Distribution Width 14.8 % (11.7-14.4); White Blood Count 10.3 x10^3/uL (3.98-10.04)
[2023-10-11 20:24] LABS: ANION GAP 12.9 MEQ/L (5-15); BILIRUBIN,TOTAL 1.1 mg/dL (0.2-1.3); Calcium 9.3 mg/dL (8.4-10.2); Creatinine 1 1.2 mg/dL (0.52-1.04); EST GLOMERULAR FILTRATION RATE 50.2 ML/MIN; Potassium 3.6 mmol/L (3.5-5.1); Total Protein 7.2 g/dL (6.3-8.2)
--- NOTE | 2023-10-11 21:20 | XRAY ---
Indication: Chest pain. Comparison: May 29, 2022. PA/lateral chest hyperinflated and remains clear. Heart and mediastinal structures within normal limits. Bony thorax intact again with osteopenia and mild degenerative changes. Impression: Nonacute hyperinflated chest.
[2023-10-11 22:09] VITALS: RESP 17; O2SAT 96
[2023-10-11 22:18] LABS: Appearance Clear (Clear); Bacteria Few /HPF (None Seen); Bilirubin Negative (Negative); Blood Negative (Negative); Epithelial Cells Few /HPF (None Seen); Glucose, Urine Negative (Negative); Ketones Negative (Negative); Leukocyte Esterase Negative (Negative); Nitrite Negative (Negative); Ph 5.5 (4.6-8.0); Protein,Urine Dip Negative (Negative); RBC 0-2 /HPF (0-5); Specific Gravity 1.025 (1.005-1.030)
[2023-10-11 22:22] LABS: ADD URINE CULTURE? NO (NO)
[2023-10-11] MEDS: Ativan 1 MG PO SCH (22:57)
[2023-10-11 23:20] VITALS: BP 99/48; PULSE 58
== END 2023-10-11 23:17 | disposition home or self-care (01) ==
LOC: ED 18:52
DX: R10.13 Epigastric pain (principal); F41.9 Anxiety disorder, unspecified; R00.1 Bradycardia, unspecified; R07.9 Chest pain, unspecified; E78.5 Hyperlipidemia, unspecified; I10 Essential (primary) hypertension; I25.2 Old myocardial infarction
CPT/HCPCS: 36000; 36415; 71046; 80053; 81001; 83880; 84484; 85025; 93005; 96374; 99284; A9270-GY

== ENCOUNTER 2024-05-14 10:53 | Emergency (ER) | payer MEDICARE, OTHER ==
[2024-05-14 11:04] VITALS: TEMP 98.4
--- NOTE | 2024-05-14 11:20 | ERPHSYRPT ---
- History of Present Illness Time Seen by Provider: 05/14/24 11:20 Source: patient, family Exam Limitations: no limitations Patient Subjective Stated Complaint: pt c/o head pain, chest pain, fever Triage Nursing Assessment: Pt brought to the ER by her , hypertensive, rates head pain as 8/10, pulses normal, skin n/w/d, dry painful cough, hx of MS, hx of PE, doesn't appear to be in any distress Physician History: This is an overweight 63-year-old white female patient who arrives by private vehicle because of 2-day history of intermittent chest tightness, dry painful cough and shortness of breath. Patient also was exposed to an individual that has viral symptoms. Patient's primary concerns are if she having a heart attack or does she have viral illness or pneumonia. Patient's room air oxygen saturation level on arrival to the emergency department is 98%. Patient has a history of hypertension, hyperlipidemia, anxiety, peptic ulcer disease, coronary artery disease and a history of a pulmonary embolus. Timing/Duration: day(s) (2), worse Severity of Dyspnea-Max: mild Severity of Dyspnea-Current: none Possible Cause: occasional episodes Associated Symptoms: cough, chest pain/discomfort (Described as intermittent tightness) Allergies/Adverse Reactions: Sulfa (Sulfonamide Antibiotics) Allergy (Verified 05/14/24 11:04) Beta-Blockers (Beta-Adrenergic Bloc Adverse Reaction (Verified 05/14/24 11:04) bupropion [From Wellbutrin] Adverse Reaction (Verified 05/14/24 11:04) Home Medications: Losartan Potassium [Cozaar] 100 mg PO DAILY 10/29/19 [History] Nitroglycerin 0.4 mg Tablet [Nitrostat 0.4 MG Tablet] 0.4 mg SL Q5MIN PRN MR X 3 PRN 12/25/19 [History] Furosemide 20 mg [Lasix 20 mg] 20 mg PO DAILY PRN PRN 10/24/21 [History] Triamterene/Hydrochlorothiazid [Triamterene-Hctz 37.5-25 mg Tb] 1 tab PO DAILY 10/24/21 [History] Aspirin [Low Dose Aspirin EC] 81 mg PO DAILY 12/28/21 [History] Atorvastatin Calcium 40 mg PO DAILY 10/11/23 [History] Ergocalciferol (Vitamin D2) [Vitamin D2] 1,250 mcg PO DAILY 05/14/24 [History] Linaclotide [Linzess] 72 mcg PO DAILY PRN 05/14/24 [History] Phentermine HCl 37.5 mg PO DAILY 05/14/24 [History] Trazodone HCl 100 mg PO DAILY 05/14/24 [History] Hx Tetanus, Diphtheria Vaccination/Date Given: Yes Hx Influenza Vaccination/Date Given: Yes Hx Pneumococcal Vaccination/Date Given: Yes Travel Risk - International Travel Have you traveled outside of the country in past 3 weeks: No - Emerging Infectious Disease Are you exhibiting symptoms associated with any current EIDs: Yes Symptoms: Fever, Shortness of Breath - Review of Systems Constitutional: No Symptoms Eyes: No Symptoms Ears, Nose, & Throat: No Symptoms Respiratory: Cough Cardiac: Chest Pain (Intermittent tightness) Abdominal/Gastrointestinal: No Symptoms Genitourinary Symptoms: No Symptoms Musculoskeletal: No Symptoms Skin: No Symptoms Neurological: No Symptoms Psychological: No Symptoms Endocrine: No Symptoms Hematologic/Lymphatic: No Symptoms Immunological/Allergic: No Symptoms All Other Systems: Reviewed and Negative - Past Medical History Pertinent Past Medical History: Yes Neurological History: No Pertinent History ENT History: Glaucoma Cardiac History: High Cholesterol, Hypertension, Myocardial Infarction (MS) Respiratory History: No Pertinent History Endocrine Medical History: Hypoglycemia Musculoskeletal History: Fractures GI Medical History: Ulcer History: Other Psycho-Social History: Anxiety, Depression Female Reproductive Disorders: No Pertinent History Other Medical History: Sleep apnea, "hardened heart muscle", kidney cysts - Past Surgical History Past Surgical History: Yes Neuro Surgical History: No Pertinent History Cardiac: Cardiac Catheterization Respiratory: No Pertinent History Gastrointestinal: Appendectomy Genitourinary: No Pertinent History Musculoskeletal: Orthopedic Surgery Female Surgical History: Hysterectomy - Social History Smoking Status: Never smoker Exposure to second hand smoke: No Drug Use: none Patient Lives Alone: No - Social Determinants of Health Will the patient participate in the screening: Yes Do you worry about a steady place to live?: No Do you have any problems with any of the following?: No known problems In the past 12 months,have you had to go without utilities?: No Transportation Issues: No Has anyone in your support network made you feel unsafe?: No Have you or anyone in your house had to go without enough: No - Nursing Vital Signs Nursing Vital Signs: Initial Vital Signs Temperature 98.4 F 05/14/24 10:56 Pulse Rate 95 H 05/14/24 10:56 Respiratory Rate 12 05/14/24 10:56 Blood Pressure 170/90 05/14/24 10:56 O2 Sat by Pulse Oximetry 98 05/14/24 10:56 Pain Scale Pain Intensity 8 - Physical Exam General Appearance: no apparent distress, alert, anxiety, obese Eye Exam: PERRL/EOMI, eyes nml inspection Ears, Nose, Throat Exam: hearing grossly normal, normal ENT inspection, normal pharynx Neck Exam: normal inspection, non-tender, supple, full range of motion Respiratory Exam: normal breath sounds, lungs clear, airway intact, No chest tenderness, No respiratory distress Cardiovascular/Chest Exam: normal heart sounds, regular rate/rhythm Abdominal/Gastrointestinal Exam: soft, normal bowel sounds, No tenderness Rectal Exam: not done Extremity Exam: non-tender, normal range of motion, normal inspection Neurologic Exam: alert, oriented x 3, cooperative, 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 QTc is 444) Ordered Tests: Active Orders 24 hr Category Date Time Status Export Specialist STAT Care 05/14/24 11:21 Active EKG-ER Only STAT Care 05/14/24 11:20 Active IV Insertion STAT Care 05/14/24 11:20 Active Pulse Oximetry (ED) STAT Care 05/14/24 11:20 Active CHEST 1 VIEW (PORTABLE) Stat Exams 05/14/24 11:21 Completed BLOOD CULTURE Stat Lab 05/14/24 11:46 Received CBC W DIFF Stat Lab 05/14/24 12:00 Completed CMP Stat Lab 05/14/24 12:00 Completed Lactic Acid Stat Lab 05/14/24 11:48 Completed MAGNESIUM Stat Lab 05/14/24 12:00 Completed NT PRO BNPII Stat Lab 05/14/24 12:00 Completed TROPONIN Q4H Lab 05/14/24 12:00 Completed TROPONIN Q4H Lab 05/14/24 14:00 Completed TROPONIN Q4H Lab 05/14/24 19:30 Ordered Medication Summary Discontinued Medications Generic Name Dose Route Start Last Admin Trade Name Isha PRN Reason Stop Dose Admin Hydrocodone Bitart/Acetaminophen 10 ml 05/14/24 11:43 05/14/24 11:48 Hydrocodone/Acetaminophen 5 Ml Udcup PO 05/14/24 11:44 10 ml STAT STA Administration Hydrocodone Bitart/Acetaminophen Confirm 05/14/24 11:45 Hydrocodone/Acetaminophen 5 Ml Udcup Administered 05/14/24 11:46 Dose 10 ml .ROUTE .STK-MED ONE Methylprednisolone Sodium 0 mg 05/14/24 11:42 05/14/24 11:48 Succinate 125 mg/ Sterile IV 05/14/24 11:43 125 mg Water 2 ml STAT ONE Administration Methylprednisolone Sodium Succinate Confirm 05/14/24 11:44 Methylprednis Sod Succ 125 Mg/2 Ml Vial Administered 05/14/24 11:45 Dose 125 mg .ROUTE .STK-MED ONE Morphine Sulfate 4 mg 05/14/24 13:47 05/14/24 13:56 Morphine Sulfate 4 Mg/Ml Injection IV 05/14/24 13:48 4 mg STAT ONE Administration Morphine Sulfate Confirm 05/14/24 13:54 Morphine Sulfate 4 Mg/Ml Injection Administered 05/14/24 13:55 Dose 4 mg .ROUTE .STK-MED ONE Ondansetron HCl 4 mg 05/14/24 13:47 05/14/24 13:56 Ondansetron Hcl 4 Mg/2 Ml Vial IV 05/14/24 13:48 4 mg STAT ONE Administration Ondansetron HCl Confirm 05/14/24 13:54 Ondansetron Hcl 4 Mg/2 Ml Vial Administered 05/14/24 13:55 Dose 4 mg .ROUTE .STK-MED ONE Sterile Water Confirm 05/14/24 11:44 Water For Injection,Sterile 10 Ml Vial Administered 05/14/24 11:45 Dose 10 ml IJ .STK-MED ONE Lab/Rad Data: Laboratory Result Diagrams 05/14/24 12:00 05/14/24 12:00 Laboratory Results 05/14/24 05/14/24 05/14/24 Range/Units 14:00 12:00 12:00 WBC (3.98-10.04) x10^3/uL RBC (3.93-5.22) x10^6/uL Hgb (11.2-15.7) g/dL Hct (34.1-44.9) % MCV (79.4-94.8) fL MCH (25.6-32.2) pg MCHC (32.2-35.5) g/dL RDW (11.7-14.4) % Plt Count (182-369) x10^3/uL MPV (9.4-12.3) fL Gran % (34.0-71.1) % Immature Gran % (Auto) (0.001-0.429) % Nucleat RBC Rel Count (0.00-0.2) % Eos # (Auto) (0.04-0.36) x10^3/uL Immature Gran # (Auto) (0.001-0.031) x10^3u/L Absolute Lymphs (auto) (1.18-3.74) x10^3/uL Absolute Monos (auto) (0.24-0.86) x10^3/uL Absolute Nucleated RBC (0.00-0.012) x10^3u/L Lymphocytes % (19.3-51.7) % Monocytes % (4.7-12.5) % Eosinophils % (0.7-5.8) % Basophils % (0.1-1.2) % Absolute Granulocytes (1.56-6.13) x10^3/uL Basophils # (0.01-0.08) x10^3/uL Sodium (135-145) mmol/L Potassium (3.5-5.1) mmol/L Chloride (98-107) mmol/L Carbon Dioxide (22-30) mmol/L Anion Gap (5-15) MEQ/L BUN (7-17) mg/dL Creatinine (0.52-1.04) mg/dL Estimated GFR ML/MIN Glucose (74-106) mg/dL Lactic Acid (0.4-2.0) Calcium (8.4-10.2) mg/dL Magnesium (1.6-2.3) mg/dL Total Bilirubin (0.2-1.3) mg/dL AST (14-36) U/L ALT (0-35) U/L Alkaline Phosphatase (38-126) U/L Troponin I < 0.012 (0.000-0.033) ng/mL NT-Pro-B Natriuret Pep 436 (<300) pg/mL Serum Total Protein (6.3-8.2) g/dL Albumin (3.5-5.0) g/dL Influenza Type A Ag NEGATIVE (NEGATIVE) Influenza Type B Ag NEGATIVE (NEGATIVE) RSV (PCR) NEGATIVE (NEGATIVE) SARS-CoV-2 (PCR) NEGATIVE (NEGATIVE) 05/14/24 05/14/24 05/14/24 Range/Units 12:00 12:00 12:00 WBC 6.7 (3.98-10.04) x10^3/uL RBC 4.71 (3.93-5.22) x10^6/uL Hgb 13.7 (11.2-15.7) g/dL Hct 41.3 (34.1-44.9) % MCV 87.7 (79.4-94.8) fL MCH 29.1 (25.6-32.2) pg MCHC 33.2 (32.2-35.5) g/dL RDW 14.8 H (11.7-14.4) % Plt Count 213 (182-369) x10^3/uL MPV 11.6 (9.4-12.3) fL Gran % 73.8 H (34.0-71.1) % Immature Gran % (Auto) 0.1 (0.001-0.429) % Nucleat RBC Rel Count 0.0 (0.00-0.2) % Eos # (Auto) 0.05 (0.04-0.36) x10^3/uL Immature Gran # (Auto) 0.01 (0.001-0.031) x10^3u/L Absolute Lymphs (auto) 0.90 L (1.18-3.74) x10^3/uL Absolute Monos (auto) 0.79 (0.24-0.86) x10^3/uL Absolute Nucleated RBC 0.00 (0.00-0.012) x10^3u/L Lymphocytes % 13.4 L (19.3-51.7) % Monocytes % 11.7 (4.7-12.5) % Eosinophils % 0.7 (0.7-5.8) % Basophils % 0.3 (0.1-1.2) % Absolute Granulocytes 4.96 (1.56-6.13) x10^3/uL Basophils # 0.02 (0.01-0.08) x10^3/uL Sodium 139 (135-145) mmol/L Potassium 3.8 (3.5-5.1) mmol/L Chloride 107 (98-107) mmol/L Carbon Dioxide 24 (22-30) mmol/L Anion Gap 11.8 (5-15) MEQ/L BUN 20 H (7-17) mg/dL Creatinine 1.00 (0.52-1.04) mg/dL Estimated GFR 62.5 ML/MIN Glucose 90 (74-106) mg/dL Lactic Acid (0.4-2.0) Calcium 9.4 (8.4-10.2) mg/dL Magnesium 1.8 (1.6-2.3) mg/dL Total Bilirubin 0.90 (0.2-1.3) mg/dL AST 35 (14-36) U/L ALT 25 (0-35) U/L Alkaline Phosphatase 124 (38-126) U/L Troponin I < 0.012 (0.000-0.033) ng/mL NT-Pro-B Natriuret Pep (<300) pg/mL Serum Total Protein 7.5 (6.3-8.2) g/dL Albumin 4.4 (3.5-5.0) g/dL Influenza Type A Ag (NEGATIVE) Influenza Type B Ag (NEGATIVE) RSV (PCR) (NEGATIVE) SARS-CoV-2 (PCR) (NEGATIVE) 05/14/24 Range/Units 11:48 WBC (3.98-10.04) x10^3/uL RBC (3.93-5.22) x10^6/uL Hgb (11.2-15.7) g/dL Hct (34.1-44.9) % MCV (79.4-94.8) fL MCH (25.6-32.2) pg MCHC (32.2-35.5) g/dL RDW (11.7-14.4) % Plt Count (182-369) x10^3/uL MPV (9.4-12.3) fL Gran % (34.0-71.1) % Immature Gran % (Auto) (0.001-0.429) % Nucleat RBC Rel Count (0.00-0.2) % Eos # (Auto) (0.04-0.36) x10^3/uL Immature Gran # (Auto) (0.001-0.031) x10^3u/L Absolute Lymphs (auto) (1.18-3.74) x10^3/uL Absolute Monos (auto) (0.24-0.86) x10^3/uL Absolute Nucleated RBC (0.00-0.012) x10^3u/L Lymphocytes % (19.3-51.7) % Monocytes % (4.7-12.5) % Eosinophils % (0.7-5.8) % Basophils % (0.1-1.2) % Absolute Granulocytes (1.56-6.13) x10^3/uL Basophils # (0.01-0.08) x10^3/uL Sodium (135-145) mmol/L Potassium (3.5-5.1) mmol/L Chloride (98-107) mmol/L Carbon Dioxide (22-30) mmol/L Anion Gap (5-15) MEQ/L BUN (7-17) mg/dL Creatinine (0.52-1.04) mg/dL Estimated GFR ML/MIN Glucose (74-106) mg/dL Lactic Acid 1.3 (0.4-2.0) Calcium (8.4-10.2) mg/dL Magnesium (1.6-2.3) mg/dL Total Bilirubin (0.2-1.3) mg/dL AST (14-36) U/L ALT (0-35) U/L Alkaline Phosphatase (38-126) U/L Troponin I (0.000-0.033) ng/mL NT-Pro-B Natriuret Pep (<300) pg/mL Serum Total Protein (6.3-8.2) g/dL Albumin (3.5-5.0) g/dL Influenza Type A Ag (NEGATIVE) Influenza Type B Ag (NEGATIVE) RSV (PCR) (NEGATIVE) SARS-CoV-2 (PCR) (NEGATIVE) - Progress Progress: improved, re-examined Air Movement: good Progress Note: 05/14/24 11:36 My medical decision making and the assignment of moderate complexity to this p atient's medical issue today is based on review of the patient's past medical history, review of the patient's medication list, reviewed patient drug allergy list, history present illness and physical findings on examination. The workup in this patient includes placement of intravenous line, chest x-ray, twelve-lead EKG, troponin level, BNP level, viral swabs, CBC, CMP, magnesium level. Differential diagnosis includes but is not limited to chest wall pain, myocardial infarction, CHF, pneumonia, viral illness 05/14/24 12:16 The chest x-ray was interpreted by the radiologist and I reviewed the impression. The impression states chest x-ray study the last inflation but it is clear. No new, acute abnormalities 05/14/24 14:47 I interpreted the repeat, 2-hour, twelve-lead EKG that was performed on 05/14/2024 at 1424. Heart rate is 59. Rhythm is normal sinus rhythm. There is normal axis deviation, normal intervals and normal QRS. The QTc is 419 and there is no evidence of any acute ischemia. Blood Culture(s) Obtained: No Antibiotics given: No Counseled pt/family regarding: lab results, diagnosis, rad results Medical Desision Making - Independent Historian Additional History obtained from: Spouse - Diagnostic Testing Diagnostic test were ordered, analyzed, and reviewed by me: Yes Radiological Interpretation: Reviewed by me, Teleradiologist Report - Risk of complications Low Risk: Low risk of morbidity from additional dx testing or treatment - Departure Departure Disposition: Home Clinical Impression: Feeling of chest tightness, Viral syndrome Condition: Stable Critical Care Time: No Referrals: DOCTOR,NO FAMILY [Primary Care Provider] - Follow up/PCP as directed Additional Instructions: Take all your medications as prescribed. 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
[2024-05-14] MEDS ORDERED: solu-MEDROL ONE (11:44)
[2024-05-14] MEDS ORDERED: Sterile H2O 10 ml IJ ONE (11:44)
[2024-05-14] MEDS ORDERED: HYDROCODONE-ACETAMIN 2.5-108/5 ML SOLUTION ONE (11:45)
--- NOTE | 2024-05-14 11:47 | XRAY ---
Indication: Short of breath. Cough. Comparison: October 11, 2023 Portable chest less inflated and remains clear. Heart not enlarged. Bony thorax intact again with osteopenia and degenerative changes. No new/acute findings.
[2024-05-14] MEDS: solu-MEDROL 125 MG, Sterile H2O 10 ml 2 ML IV ONE (11:48)
[2024-05-14] MEDS: HYDROCODONE-ACETAMIN 2.5-108/5 ML SOLUTION PO STA (11:48)
[2024-05-14 12:09] LABS: Absolute Neutrophil Ct (ANC) 4.96 x10^3/uL (1.56-6.13); BASOPHIL % 0.3 % (0.1-1.2); Basophil (Absolute #) 0.02 x10^3/uL (0.01-0.08); Eosinophil % 0.7 % (0.7-5.8); Eosinophil (Absolute #) 0.05 x10^3/uL (0.04-0.36); Hematocrit 41.3 % (34.1-44.9); Hemoglobin 13.7 g/dL (11.2-15.7); IMMATURE GRAN # 0.01 x10^3u/L (0.001-0.031); IMMATURE GRAN % 0.1 % (0.001-0.429); Lymphocytes % 13.4 % (19.3-51.7); Mean Cell Volume 87.7 fL (79.4-94.8); Mean Corpuscular Hemoglobin 29.1 pg (25.6-32.2); Mean Corpuscular Hgb Concent. 33.2 g/dL (32.2-35.5); Mean Platelet Volume 11.6 fL (9.4-12.3); Monocyte (Absolute #) 0.79 x10^3/uL (0.24-0.86); Monocytes % 11.7 % (4.7-12.5); Neutrophil % 73.8 % (34.0-71.1); Platelet Count 213 x10^3/uL (182-369); Red Blood Count 4.71 x10^6/uL (3.93-5.22); Red Cell Distribution Width 14.8 % (11.7-14.4); White Blood Count 6.7 x10^3/uL (3.98-10.04)
[2024-05-14 12:49] LABS: BILIRUBIN,TOTAL 0.9 mg/dL (0.2-1.3); Calcium 9.4 mg/dL (8.4-10.2); EST GLOMERULAR FILTRATION RATE 62.5 ML/MIN; MAGNESIUM 1.8 mg/dL (1.6-2.3); Total Protein 7.5 g/dL (6.3-8.2)
[2024-05-14 13:10] LABS: INFLUENZA A NEGATIVE (NEGATIVE); INFLUENZA B NEGATIVE (NEGATIVE); RESPIRATORY SYNCTIAL VIRUS NEGATIVE (NEGATIVE); SARS-CoV-2 Xpert Express NEGATIVE (NEGATIVE)
[2024-05-14 13:37] LABS: ALBUMIN 4.4 g/dL (3.5-5.0); Potassium 3.8 mmol/L (3.5-5.1)
[2024-05-14 13:38] LABS: ANION GAP 11.8 MEQ/L (5-15)
[2024-05-14] MEDS ORDERED: MORPHINE SULFATE 4 MG INJ ONE (13:54)
[2024-05-14] MEDS ORDERED: Zofran 4 MG/2 ML VIAL ONE (13:54)
[2024-05-14] MEDS: MORPHINE SULFATE 4 MG INJ IV ONE (13:56)
[2024-05-14] MEDS: Zofran 4 MG/2 ML VIAL IV ONE (13:56)
[2024-05-14 14:49] VITALS: O2SAT 98
[2024-05-14 15:06] VITALS: BP 108/59; PULSE 56; RESP 21
== END 2024-05-14 15:06 | disposition home or self-care (01) ==
LOC: ED 10:53
DX: B34.9 Viral infection, unspecified (principal); R07.9 Chest pain, unspecified; R05.1 Acute cough; R06.02 Shortness of breath; I10 Essential (primary) hypertension; E78.5 Hyperlipidemia, unspecified; Z79.899 Other long term (current) drug therapy
CPT/HCPCS: 0241U; 36415; 71045; 80053; 83605; 83735; 83880; 84484; 85025; 87040; 93005; 93041; 94760; 96374; 96375; 99285; 99284; J2270; J2405; J2919; A9270-GY

== ENCOUNTER 2024-07-07 12:34 | Emergency (ER) | payer MEDICARE, OTHER ==
[2024-07-07 13:08] VITALS: TEMP 98.5; O2SAT 98
--- NOTE | 2024-07-07 13:29 | ERPHSYRPT ---
- History of Present Illness Time Seen by Provider: 07/07/24 12:55 Historian: patient, family Exam Limitations: no limitations Patient Subjective Stated Complaint: C/O abdominal pain for a few weeks. Denies vomiting but states is nauseated related to the pain at times. Triage Nursing Assessment: Patient ambulated back to ER. She is alert and orie nted. No SOB. Face is flushed. Abdomen is distended and tender. Physician History: 63-year-old female presented in the ER with complaints of mid to lower abdominal pain all across for the last 2 weeks off and on with progressive worsening lately. Patient reports having a tender spot in the left lower quadrant area, does have history of diverticulitis. Patient denies associated nausea vomiting or diarrhea. No fever or chills reported. Denies any urinary complaints. Patient is complaining of intermittent left-sided chest discomfort at times as well with no palpitations or shortness of breath. No history of stenting. Denies any chest pain today. Allergies/Adverse Reactions: Sulfa (Sulfonamide Antibiotics) Allergy (Verified 07/07/24 12:53) Beta-Blockers (Beta-Adrenergic Bloc Adverse Reaction (Verified 07/07/24 12:53) bupropion [From Wellbutrin] Adverse Reaction (Verified 07/07/24 12:53) morphine Adverse Reaction (Verified 07/07/24 12:53) Vomiting Home Medications: Losartan Potassium [Cozaar] 100 mg PO DAILY 10/29/19 [History] Nitroglycerin 0.4 mg Tablet [Nitrostat 0.4 MG Tablet] 0.4 mg SL Q5MIN PRN MR X 3 PRN 12/25/19 [History] Furosemide 20 mg [Lasix 20 mg] 20 mg PO DAILY PRN PRN 10/24/21 [History] Triamterene/Hydrochlorothiazid [Triamterene-Hctz 37.5-25 mg Tb] 1 tab PO DAILY 10/24/21 [History] Aspirin [Low Dose Aspirin EC] 81 mg PO DAILY 12/28/21 [History] Atorvastatin Calcium 40 mg PO DAILY 10/11/23 [History] Ergocalciferol (Vitamin D2) [Vitamin D2] 1,250 mcg PO WEEKLY 05/14/24 [History] Linaclotide [Linzess] 72 mcg PO DAILY PRN 05/14/24 [History] Phentermine HCl 37.5 mg PO DAILY 05/14/24 [History] Trazodone HCl 100 mg PO HS 05/14/24 [History] Latanoprost [Xalatan] 1 drop DROPS HS 07/07/24 [History] Hx Tetanus, Diphtheria Vaccination/Date Given: Yes Hx Influenza Vaccination/Date Given: Yes Hx Pneumococcal Vaccination/Date Given: Yes Immunizations Up to Date: Yes Travel Risk - International Travel Have you traveled outside of the country in past 3 weeks: No - Emerging Infectious Disease Are you exhibiting symptoms associated with any current EIDs: Yes Symptoms: Abdominal Pain - Review of Systems Constitutional: No Symptoms Ears, Nose, & Throat: No Symptoms Respiratory: No Symptoms Cardiac: Chest Pain Abdominal/Gastrointestinal: Abdominal Pain Genitourinary Symptoms: No Symptoms Musculoskeletal: Arthralgias Skin: No Symptoms Neurological: No Symptoms Psychological: No Symptoms - Past Medical History Pertinent Past Medical History: Yes Neurological History: No Pertinent History ENT History: Glaucoma Cardiac History: High Cholesterol, Hypertension, Myocardial Infarction (ME) Respiratory History: No Pertinent History Endocrine Medical History: Hypoglycemia Musculoskeletal History: Fractures GI Medical History: Ulcer History: Other Psycho-Social History: Anxiety, Depression Female Reproductive Disorders: No Pertinent History Other Medical History: Sleep apnea, kidney cysts - Past Surgical History Past Surgical History: Yes Neuro Surgical History: No Pertinent History Cardiac: Cardiac Catheterization Respiratory: No Pertinent History Gastrointestinal: Appendectomy Genitourinary: No Pertinent History Musculoskeletal: Orthopedic Surgery Female Surgical History: Hysterectomy - Social History Smoking Status: Never smoker Exposure to second hand smoke: No Drug Use: none - Social Determinants of Health Will the patient participate in the screening: Yes Do you worry about a steady place to live?: No Do you have any problems with any of the following?: No known problems In the past 12 months,have you had to go without utilities?: No Transportation Issues: No Has anyone in your support network made you feel unsafe?: No Have you or anyone in your house had to go w/o enough food: No - Nursing Vital Signs Nursing Vital Signs: Initial Vital Signs Temperature 98.5 F 07/07/24 12:45 Pulse Rate 68 07/07/24 12:45 Respiratory Rate 15 07/07/24 12:45 Blood Pressure 139/77 07/07/24 12:45 O2 Sat by Pulse Oximetry 98 07/07/24 12:45 Pain Scale Pain Intensity 5 - Physical Exam General Appearance: no apparent distress, alert Eye Exam: PERRL/EOMI Ears, Nose, Throat Exam: normal ENT inspection Neck Exam: normal inspection, supple, full range of motion Respiratory Exam: normal breath sounds, lungs clear Cardiovascular Exam: regular rate/rhythm, normal heart sounds Gastrointestinal/Abdomen Exam: soft, normal bowel sounds, tenderness (Mild generalized but more in the left lower quadrant) Back Exam: normal inspection Extremity Exam: normal inspection, normal range of motion Neurologic Exam: alert, oriented x 3, cooperative Skin Exam: normal color SpO2 Interpretation: normal SpO2: 98 O2 Delivery: Room Air - Course EKG Interpreted by Me: RATE (73), Sinus Rhythm, NORMAL AXIS, NORMAL INTERVALS, Non-specific ST Changes Ordered Tests: Active Orders 24 hr Category Date Time Status EKG-ER Only STAT Care 07/07/24 13:23 Active IV Insertion STAT Care 07/07/24 13:23 Active NPO (ED) STAT Care 07/07/24 13:23 Active ABDOMEN AND PELVIS W/0 CONTRAS [CT] Stat Exams 07/07/24 13:24 Completed CHEST 1 VIEW (PORTABLE) Stat Exams 07/07/24 13:24 Completed CBC W DIFF Stat Lab 07/07/24 13:30 Completed CMP Stat Lab 07/07/24 13:30 Completed LIPASE Stat Lab 07/07/24 13:30 Completed Lactic Acid Stat Lab 07/07/24 13:30 Completed TROPONIN Q4H Lab 07/07/24 13:30 Completed TROPONIN Q4H Lab 07/07/24 17:30 Ordered TROPONIN Q4H Lab 07/07/24 21:30 Ordered UA W/RFX UR CULTURE Stat Lab 07/07/24 13:27 Completed Medication Summary Discontinued Medications Generic Name Dose Route Start Last Admin Trade Name Freq PRN Reason Stop Dose Admin Fentanyl Citrate 50 mcg 07/07/24 13:23 07/07/24 13:44 Fentanyl Citrate 100 Mcg/2 Ml* Vial IV 07/07/24 13:24 50 mcg STAT ONE Administration Fentanyl Citrate Confirm 07/07/24 13:42 Fentanyl Citrate 100 Mcg/2 Ml* Vial Administered 07/07/24 13:43 Dose 100 mcg .ROUTE .STK-MED ONE Ondansetron HCl 4 mg 07/07/24 13:23 07/07/24 13:44 Ondansetron Hcl 4 Mg/2 Ml Vial IV 07/07/24 13:24 4 mg STAT ONE Administration Ondansetron HCl Confirm 07/07/24 13:41 Ondansetron Hcl 4 Mg/2 Ml Vial Administered 07/07/24 13:42 Dose 4 mg .ROUTE .STK-MED ONE Lab/Rad Data: Laboratory Result Diagrams 07/07/24 13:30 07/07/24 13:30 Laboratory Results 07/07/24 07/07/24 07/07/24 Range/Units 13:30 13:30 13:30 WBC (3.98-10.04) x10^3/uL RBC (3.93-5.22) x10^6/uL Hgb (11.2-15.7) g/dL Hct (34.1-44.9) % MCV (79.4-94.8) fL MCH (25.6-32.2) pg MCHC (32.2-35.5) g/dL RDW (11.7-14.4) % Plt Count (182-369) x10^3/uL MPV (9.4-12.3) fL Gran % (34.0-71.1) % Immature Gran % (Auto) (0.001-0.429) % Nucleat RBC Rel Count (0.00-0.2) % Eos # (Auto) (0.04-0.36) x10^3/uL Immature Gran # (Auto) (0.001-0.031) x10^3u/L Absolute Lymphs (auto) (1.18-3.74) x10^3/uL Absolute Monos (auto) (0.24-0.86) x10^3/uL Absolute Nucleated RBC (0.00-0.012) x10^3u/L Lymphocytes % (19.3-51.7) % Monocytes % (4.7-12.5) % Eosinophils % (0.7-5.8) % Basophils % (0.1-1.2) % Absolute Granulocytes (1.56-6.13) x10^3/uL Basophils # (0.01-0.08) x10^3/uL Sodium 141 (135-145) mmol/L Potassium 4.2 (3.5-5.1) mmol/L Chloride 106 (98-107) mmol/L Carbon Dioxide 26 (22-30) mmol/L Anion Gap 14.0 (5-15) MEQ/L BUN 19 H (7-17) mg/dL Creatinine 0.85 (0.52-1.04) mg/dL Estimated GFR 76.0 ML/MIN Glucose 95 (74-106) mg/dL Lactic Acid 0.8 (0.4-2.0) Calcium 9.2 (8.4-10.2) mg/dL Total Bilirubin 0.70 (0.2-1.3) mg/dL AST 25 (14-36) U/L ALT 22 (0-35) U/L Alkaline Phosphatase 116 (38-126) U/L Troponin I < 0.012 (0.000-0.033) ng/mL Serum Total Protein 7.0 (6.3-8.2) g/dL Albumin 4.1 (3.5-5.0) g/dL Lipase 96 (23-300) U/L Urine Color (Yellow) Urine Appearance (Clear) Urine pH (4.6-8.0) Ur Specific [place] (1.005-1.030) Urine Protein (Negative) Urine Glucose (UA) (Negative) mg/dL Urine Ketones (Negative) Urine Blood (Negative) Urine Nitrite (Negative) Urine Bilirubin (Negative) Urine Urobilinogen (0.2) mg/dL Ur Leukocyte Esterase (Negative) U Hyaline Cast (Auto) (0-2) /LPF Urine Microscopic RBC (0-5) /HPF Urine Microscopic WBC (0-5) /HPF Ur Epithelial Cells (None Seen) /HPF Urine Bacteria (None Seen) /HPF Urine Culture Reflexed (NO) 07/07/24 07/07/24 Range/Units 13:30 13:27 WBC 7.8 (3.98-10.04) x10^3/uL RBC 4.50 (3.93-5.22) x10^6/uL Hgb 13.3 (11.2-15.7) g/dL Hct 40.6 (34.1-44.9) % MCV 90.2 (79.4-94.8) fL MCH 29.6 (25.6-32.2) pg MCHC 32.8 (32.2-35.5) g/dL RDW 14.9 H (11.7-14.4) % Plt Count 234 (182-369) x10^3/uL MPV 11.2 (9.4-12.3) fL Gran % 61.9 (34.0-71.1) % Immature Gran % (Auto) 0.4 (0.001-0.429) % Nucleat RBC Rel Count 0.0 (0.00-0.2) % Eos # (Auto) 0.13 (0.04-0.36) x10^3/uL Immature Gran # (Auto) 0.03 (0.001-0.031) x10^3u/L Absolute Lymphs (auto) 2.16 (1.18-3.74) x10^3/uL Absolute Monos (auto) 0.61 (0.24-0.86) x10^3/uL Absolute Nucleated RBC 0.00 (0.00-0.012) x10^3u/L Lymphocytes % 27.7 (19.3-51.7) % Monocytes % 7.8 (4.7-12.5) % Eosinophils % 1.7 (0.7-5.8) % Basophils % 0.5 (0.1-1.2) % Absolute Granulocytes 4.82 (1.56-6.13) x10^3/uL Basophils # 0.04 (0.01-0.08) x10^3/uL Sodium (135-145) mmol/L Potassium (3.5-5.1) mmol/L Chloride (98-107) mmol/L Carbon Dioxide (22-30) mmol/L Anion Gap (5-15) MEQ/L BUN (7-17) mg/dL Creatinine (0.52-1.04) mg/dL Estimated GFR ML/MIN Glucose (74-106) mg/dL Lactic Acid (0.4-2.0) Calcium (8.4-10.2) mg/dL Total Bilirubin (0.2-1.3) mg/dL AST (14-36) U/L ALT (0-35) U/L Alkaline Phosphatase (38-126) U/L Troponin I (0.000-0.033) ng/mL Serum Total Protein (6.3-8.2) g/dL Albumin (3.5-5.0) g/dL Lipase (23-300) U/L Urine Color Yellow (Yellow) Urine Appearance Clear (Clear) Urine pH 7.0 (4.6-8.0) Ur Specific [place] <=1.005 (1.005-1.030) Urine Protein Negative (Negative) Urine Glucose (UA) Negative (Negative) mg/dL Urine Ketones Negative (Negative) Urine Blood Negative (Negative) Urine Nitrite Negative (Negative) Urine Bilirubin Negative (Negative) Urine Urobilinogen 0.2 (0.2) mg/dL Ur Leukocyte Esterase Negative (Negative) U Hyaline Cast (Auto) NONE SEEN (0-2) /LPF Urine Microscopic RBC 0-2 (0-5) /HPF Urine Microscopic WBC 0-2 (0-5) /HPF Ur Epithelial Cells None Seen (None Seen) /HPF Urine Bacteria None Seen (None Seen) /HPF Urine Culture Reflexed NO (NO) - Progress Progress: improved, pain not gone completely Progress Note: 07/07/24 15:14 63-year-old female with history of hypertension, hyperlipidemia, hiatal hernia is evaluated in the ER for mid to lower abdominal pain. She also has intermittent chest pain, no chest pain today though. Denies any dyspnea on exertion. EKG is normal sinus rhythm with no acute ST elevations, Chest x-ray is negative for any acute cardiopulmonary findings reviewed by me followed by official read. She is given symptomatic treatment for pain with improvement but not complete resolution of pain. No peritoneal signs on repeated eval. Has normal white count, unremarkable chemistries. Normal lactate. Test negative troponin. No chest pain currently, do not think patient needs second troponin and she is more concerned about her abdominal pain. Chest pain is atypical, she is advised to follow-up with her heel seater. I have obtained CT abdomen pelvis without contrast which showed hiatal hernia and other chronic findings but no acute abdominal pelvic findings suggesting the cause of her pain, it could be secondary to adhesions from previous surgeries but no acute emergency. I have discussed the results of workup with patient and family, recommended outpatient follow-up with PCP and GI, discussed signs symptoms of worsening needing return to ER which she seems understanding. I have offered her pain medications to go home which she does not wanted. Recommended taking Tylenol as needed. Complexity of problem addressed: Moderate acute Complexity of data reviewed/analyzed: Moderate Risk of complication/morbidity with current condition: Moderate Counseled pt/family regarding: lab results, diagnosis, need for follow-up, rad results Medical Desision Making - Independent Historian Additional History obtained from: Spouse - Diagnostic Testing Diagnostic test were ordered, analyzed, and reviewed by me: Yes Radiological Interpretation: Interpreted by me, Reviewed by me - Risk of complications The pt has a mod risk of morbidity or mortality based on: Need for prescription drug management - Departure Departure Disposition: Home Clinical Impression: Lower abdominal pain, Atypical chest pain Condition: Stable Critical Care Time: No Referrals: KWAKU SANTACRUZ MD [Primary Care Provider] - Follow up with PCP 1 day HOLLI SANFORD [CONSULTING PHYSICIAN] - Follow up/PCP as directed (Call for appointment) Instructions: Severe Abdominal Pain, Adult (DC) Additional Instructions: Take Tylenol as needed. Follow-up with your primary care and cardiology for reevaluation. Also follow-up with your GI to see if you need endoscopy/colonoscopy. Return to ER for intractable abdominal pain/chest pain/difficulty breathing etc.
[2024-07-07 13:38] LABS: Appearance Clear (Clear); Bacteria None Seen /HPF (None Seen); Bilirubin Negative (Negative); Blood Negative (Negative); Epithelial Cells None Seen /HPF (None Seen); Glucose, Urine Negative (Negative); Hyaline Casts NONE SEEN /LPF (0-2); Ketones Negative (Negative); Leukocyte Esterase Negative (Negative); Nitrite Negative (Negative); Protein,Urine Dip Negative (Negative); RBC 0-2 /HPF (0-5); Specific Gravity <=1.005 (1.005-1.030); Urobilinogen 0.2 mg/dL (0.2); WBC 0-2 /HPF (0-5)
[2024-07-07] MEDS ORDERED: Zofran 4 MG/2 ML VIAL ONE (13:41)
[2024-07-07] MEDS ORDERED: SUBLIMAZE 100 MCG/2 ML ONE (13:42)
[2024-07-07] MEDS: SUBLIMAZE 100 MCG/2 ML IV ONE (13:44)
[2024-07-07] MEDS: Zofran 4 MG/2 ML VIAL IV ONE (13:44)
[2024-07-07 14:00] LABS: Absolute Neutrophil Ct (ANC) 4.82 x10^3/uL (1.56-6.13); BASOPHIL % 0.5 % (0.1-1.2); Basophil (Absolute #) 0.04 x10^3/uL (0.01-0.08); Eosinophil % 1.7 % (0.7-5.8); Eosinophil (Absolute #) 0.13 x10^3/uL (0.04-0.36); Hematocrit 40.6 % (34.1-44.9); Hemoglobin 13.3 g/dL (11.2-15.7); IMMATURE GRAN # 0.03 x10^3u/L (0.001-0.031); IMMATURE GRAN % 0.4 % (0.001-0.429); Lymphocyte (Absolute #) 2.16 x10^3/uL (1.18-3.74); Lymphocytes % 27.7 % (19.3-51.7); Mean Cell Volume 90.2 fL (79.4-94.8); Mean Corpuscular Hemoglobin 29.6 pg (25.6-32.2); Mean Corpuscular Hgb Concent. 32.8 g/dL (32.2-35.5); Mean Platelet Volume 11.2 fL (9.4-12.3); Monocyte (Absolute #) 0.61 x10^3/uL (0.24-0.86); Monocytes % 7.8 % (4.7-12.5); Neutrophil % 61.9 % (34.0-71.1); Platelet Count 234 x10^3/uL (182-369); Red Cell Distribution Width 14.9 % (11.7-14.4); White Blood Count 7.8 x10^3/uL (3.98-10.04)
[2024-07-07 14:03] LABS: ALBUMIN 4.1 g/dL (3.5-5.0); BILIRUBIN,TOTAL 0.7 mg/dL (0.2-1.3); Calcium 9.2 mg/dL (8.4-10.2); Creatinine 1 0.85 mg/dL (0.52-1.04); Potassium 4.2 mmol/L (3.5-5.1)
--- NOTE | 2024-07-07 14:46 | XRAY ---
Indication: Lower abdominal pain. Multiple contiguous axial images obtained through abdomen and pelvis without contrast. Comparison: July 28, 2023. Lung bases demonstrate minimal lingula subsegmental atelectasis/scarring. No infiltrate or effusion. Heart not enlarged. Stable small hiatal hernia. Noncontrasted stomach and bowel loops appear nonobstructed. Again diffuse scattered colonic diverticulosis without taj diverticulitis. Stable bilateral renal parapelvic cysts, appendectomy, and hysterectomy. No free fluid/air. Remaining liver, gallbladder, pancreas, spleen, adrenal glands, kidneys, ureters, and bladder are unremarkable for noncontrast exam. Stable mild aortoiliac calcifications without AAA. Osseous structures intact again with osteopenia and mild/moderate degenerative changes throughout spine. Impression: Again chronic findings including hiatal hernia, colonic diverticulosis, bilateral renal parapelvic cysts, arteriosclerotic disease, and chronic bony findings. No new/acute findings on this noncontrast exam.
--- NOTE | 2024-07-07 14:48 | XRAY ---
Indication: Chest pain. Comparison: May 14, 2024 Portable chest better inflated and remains clear. Heart not enlarged. Bony thorax intact again with osteopenia and degenerative changes. No new/acute findings.
[2024-07-07 15:25] VITALS: BP 132/71; PULSE 63; RESP 20
== END 2024-07-07 15:37 | disposition home or self-care (01) ==
LOC: ED 12:34
DX: R10.32 Left lower quadrant pain (principal); R10.31 Right lower quadrant pain; R07.89 Other chest pain; E78.5 Hyperlipidemia, unspecified; I10 Essential (primary) hypertension; Z79.899 Other long term (current) drug therapy
CPT/HCPCS: 36415; 71045; 74176; 80053; 81001; 83605; 83690; 84484; 85025; 93005; 96374; 96375; 99284; 99285; J2405; J3010